=== PATIENT | female | born 1960 ===

== ENCOUNTER → 2019-12-07 13:04 | Outpatient (BNVA) | payer MEDICAID, SELFPAY | PROVIDERS: PCP Nurse Practitioner Family; Referring Provider Nurse Practitioner Family; Visit Provider Nurse Practitioner | DX: K21.9 Gastro-esophageal reflux disease without esophagitis (principal); K59.04 Chronic idiopathic constipation; R14.0 Abdominal distension (gaseous); Z79.899 Other long term (current) drug therapy | CPT/HCPCS: 99213 ==

== ENCOUNTER 2020-03-27 14:56 | Outpatient (REF) | payer MEDICAID, SELFPAY | END 2020-03-27 14:57 | disposition home or self-care (01) | LOC: HO.MAMMO 14:56 | PROVIDERS: Visit Provider Family Medicine | DX: Z13.89 Encounter for screening for other disorder (principal) ==

== ENCOUNTER 2020-05-18 13:30 | Emergency (ER) | payer MEDICAID, SELFPAY ==
--- NOTE | ~2020-05-18 | XR_ITS ---
EXAMINATION: XR chest 1V CLINICAL INFORMATION: Reason for Exam sob, COMPARISON: 01/20/2018 TECHNIQUE: XR chest 1V Tubes and lines: None Lungs and pleura: Newly developed mild bilateral interstitial opacification concerning for possible interstitial pneumonia including possible atypical viral pneumonia. Heart and mediastinum: The mediastinum is within normal limits.. Bones/soft tissue: Skeletal structures included are normal for patient's age. XR/XR chest 1V IMPRESSION: Bilateral interstitial opacification concerning for possible atypical pneumonia including possible viral pneumonia. No pleural effusion.
--- NOTE | 2020-05-18 13:53 | ED.SOB ---
HPI - SOB/Dyspnea General Chief Complaint: Dyspnea Stated Complaint: DIFF BREATHING COVID POS Time Seen by Provider: 05/18/20 13:44 Source: patient and hourly sign language interpreter Mode of arrival: ambulatory Limitations: language barrier History of Present Illness HPI Narrative: 60-year-old female with a past medical history of asthma, GERD here with complaints of shortness of breath x2 days. She tells me that she has some chest tightness which is associated with this and a dry nonproductive cough. She denies any lower extremity swelling or pain. No fevers or chills. Using albuterol inhaler with continued symptoms. Per patient tested COVID positive 2 weeks ago at [facility]. MD elicited complaint: shortness of breath Related Data Home Medications Medication Instructions Recorded Confirmed simethicone 180 mg capsule 180 mg PO QID PRN cap 12/06/19 12/06/19 Previous Rx's Medication Instructions Recorded dexlansoprazole 60 mg 60 mg PO BEDTIME #30 cap 01/02/20 capsule,biphase delayed release linaclotide 145 mcg capsule 145 mcg PO QAM #30 cap 01/02/20 prednisone 40 mg PO DAILY #8 tab 05/18/20 Allergies Allergy/AdvReac Type Severity Reaction Status Date / Time Penicillins [PENICILLINS] Allergy Unknown UNKNOWN Unverified 11/01/19 17:54 HIGH BLOOD PRESSURE MED Allergy Unknown ASTHMA Uncoded 11/01/19 17:54 Review of Systems Review of Systems: Yes all other systems are reviewed and are negative Constitutional: Constitutional: Reports no additional constitutional complaints, Denies body ache(s), Denies chills, Denies fever(s), Denies headache(s) and Denies weakness Eyes: Eyes: Reports no additional eye complaints and Denies change in vision ENT: Reports system reviewed and no additional complaints, except as documented, Denies dizziness, Denies headache(s), Denies nasal congestion, Denies nasal discharge and Denies neck pain Cardiovascular: Cardiovascular: Reports no additional cardiovascular complaints, Reports chest pain, Denies leg edema and Reports dyspnea Respiratory: Respiratory: Reports no additional respiratory complaints, Reports cough and Reports dyspnea Gastrointestinal: Gastrointestinal: Reports no additional gastrointestinal complaints, Denies abdominal pain, Denies diarrhea, Denies nausea and Denies vomiting Genitourinary: Genitourinary: Reports no additional female genitourinary complaints and Denies urinary incontinence Musculoskeletal: Musculoskeletal: Reports no additional musculoskeletal complaints, Denies back pain, Denies arthralgias, Denies joint swelling, Denies neck pain, Denies numbness and Denies tingling Integumentary/Breasts: Skin/Breast: Reports system reviewed and no additional complaints, except as docu and Denies rash Neurologic: Reports system reviewed and no additional complaints, except as documented, Denies Abnormal speech present, Denies dizziness, Denies headache(s), Denies numbness, Denies tingling and Denies weakness PMFSH Past Medical History Attestation statement: The following information was validated with the patient. Source: old records reviewed and nursing notes reviewed Medical History (Updated 05/18/20 @ 16:16 by Onelia Vallejo NP) Asthma Surgical History History of esophagogastroduodenoscopy (EGD) (~05/2010) Hx of colonoscopy (~05/2010) Family History Family History Father Heart disease Mother Cancer Diabetes HTN (hypertension) Sister Diabetes Brother Heart disease Maternal Grandmother Cancer Paternal Grandmother Cancer Social History Social History Alcohol intake: current Alcohol intake frequency: does not drink Smoking Status: Never smoker Advance Directives: Yes Advance Directives Information Provided: Yes Advance Directives on File: No Physical Exam Vital Signs: Vital Signs: Last Vital Signs Temp 99.0 F 05/18/20 14:47 Pulse 85 05/18/20 15:17 Resp 22 H 05/18/20 14:47 BP 122/62 05/18/20 14:47 Pulse Ox 94 05/18/20 14:47 Body Mass Index 33.9 Const: General: cooperative, healthy appearing and anxious Orientation/consciousness: patient oriented x3 Limitations: no limitations HENMT: Head: Yes normal to inspection Ears: hearing grossly normal bilaterally General nose exam: Normal external nose present Face and sinus: Yes normal facial exam Mouth: Normal oral and palatal mucosa present Throat: Yes posterior oropharynx normal Eyes: General: appearance normal, both eyes and all related structures Pupils: Equal, round and reactive pupils present Neck: Neck: Yes normal visual inspection Chest: Chest palpation & inspection: normal inspection of the chest Resp: Other: Mild expiratory wheezing bilaterally Effort & Inspection: normal respiratory effort Cardio: Rate: regular rate Rhythm: regular rhythm Peripheral pulses: Peripheral pulses 2+ throughout GI: Inspection: Yes normal to inspection Palpation (GI): Soft to palpation and nontender Auscultation: normal bowel sounds Back/Spine/Pelvis: Thoracic/Lumbar Spine: thoracic and lumbar spine normal to inspection Skin: General skin exam: no rashes or lesions noted Neuro: General: patient oriented x3, no focal motor deficits and normal sensation to monofilament Cranial nerves: Yes Equal, round and reactive pupils present Cognition (Neuro): normal cognition Speech: No Abnormal speech present Gait exam (Neuro): Normal gait present Motor exam (neuro): 5/5 motor strength present throughout Extrem: General: Yes normal to inspection, Yes no pedal edema and Yes no calf tenderness Course Course Course Narrative: 60-year-old female with a past medical history of asthma and GERD, COVID positive 2 weeks ago here with shortness of breath, cough, chest tightness x2 days. On arrival the patient is very anxious. She has mild expiratory wheezing bilaterally and oxygen saturation of 97%. Will check labs, EKG, chest x-ray. Give DuoNeb, Solu-Medrol 1500-x-ray consistent with bilateral infiltrates which is from a viral process. Add on blood cultures, lactic acid. 1600-Labs are unremarkable with exception of mildly elevated INR, AST/ALT, LDH, CRP which is from a viral infection. Patient feels improved. Will trial ambulatory oxygen saturation. 1630-patient walked with oxygen saturations 95% and greater with no tachypnea. Plan for discharge home. Reviewed worrisome signs and symptoms including worsening shortness of breath, chest pain, fever, vomiting. Comfortable discharge home. MDM - SOB/Dyspnea MDM Narrative Medical decision making narrative: Anxiety, pneumonia, PE, viral syndrome, asthma exacerbation Less likely PE with negative D-dimer, no hypoxia or tachycardia or clinical findings of a DVT Medical Records Attestation: I reviewed the patient's medical records. Lab Data Attestation: I reviewed the patient's lab results. Result diagrams: 05/18/20 14:44 05/18/20 14:44 Labs: Lab Results 04/04/21 04/04/21 04/04/21 Range/Units 14:44 14:44 14:44 WBC 7.0 (4.8-10.8) X10*3/uL RBC 4.29 (4.20-5.50) X10*6/uL Hgb 11.7 L (12.0-16.0) g/dl Hct 36.7 L (37-47) % MCV 85.5 (80-98) fL MCH 27.3 (27.0-33.0) pg MCHC 31.9 (31.0-35.0) g/dl RDW 13.2 (11.0-16.0) % Plt Count 300 (160-400) X10*3/uL MPV 11.6 (9.4-12.3) fL Immature Gran % (Auto) 0.7 H (0.0-0.4) % Neut % (Auto) 64.0 (45-73) % Lymph % (Auto) 29.3 (20-40) % Custer % (Auto) 5.8 (2-11) % Eos % (Auto) 0.1 (0-4) % Baso % (Auto) 0.1 (0-2) % Lymph # (Auto) 2.1 (1.2-4.9) X10*3/uL Custer # (Auto) 0.4 (0.1-1.2) X10*3/uL Eos # (Auto) 0.0 (0.0-0.4) X10*3/uL Baso # (Auto) 0.0 (0.0-0.2) X10*3/uL Abs Immat Gran (auto) 0.05 H (0.00-0.03) X10*3/uL Absolute Neuts (auto) 4.5 (2.0-8.3) X10*3/uL Absolute Nucleated RBC 0.000 (0.0-0.012) X10*3/uL Nucleated RBC % (auto) 0.0 (0.0-0.2) /100WBC PT 14.6 H (10.8-13.0) SEC INR 1.2 H (0.9-1.1) D-Dimer < 200 NG/ML Sodium 136 (135-145) mmol/L Potassium 4.6 (3.3-5.1) mmol/L Chloride 98 (96-108) mmol/L Carbon Dioxide 27 (22-29) mmol/L Anion Gap 16 (12-20) BUN 11 (9-16) mg/dL Creatinine 0.84 (0.5-1.4) mg/dL Estim Creat Clear Calc 83.8 Estimated GFR > 60 Random Glucose 284 H (60-115) mg/dL Lactic Acid (0.5-2.0) mmol/L Calcium 8.5 (8.4-10.2) mg/dL Magnesium 2.1 (1.6-2.6) mg/dL Ferritin 432 H (10-250) ng/mL Total Bilirubin 0.6 (0.0-1.0) mg/dL Direct Bilirubin 0.3 (0.0-0.5) mg/dL AST 55 H (5-31) U/L ALT 34 H (0-31) U/L Alkaline Phosphatase 47 (39-117) U/L Lactate Dehydrogenase 339 H (122-220) U/L Troponin I High Sens (<3.5-17.0) ng/L C-Reactive Protein 4.99 H (< or = 0.50) mg/dL Total Protein 6.9 (6.5-8.0) g/dL Albumin 3.8 (3.5-5.0) g/dL Procalcitonin ng/mL 05/18/20 05/18/20 05/18/20 Range/Units 14:44 14:44 15:33 WBC (4.8-10.8) X10*3/uL RBC (4.20-5.50) X10*6/uL Hgb (12.0-16.0) g/dl Hct (37-47) % MCV (80-98) fL MCH (27.0-33.0) pg MCHC (31.0-35.0) g/dl RDW (11.0-16.0) % Plt Count (160-400) X10*3/uL MPV (9.4-12.3) fL Immature Gran % (Auto) (0.0-0.4) % Neut % (Auto) (45-73) % Lymph % (Auto) (20-40) % Custer % (Auto) (2-11) % Eos % (Auto) (0-4) % Baso % (Auto) (0-2) % Lymph # (Auto) (1.2-4.9) X10*3/uL Custer # (Auto) (0.1-1.2) X10*3/uL Eos # (Auto) (0.0-0.4) X10*3/uL Baso # (Auto) (0.0-0.2) X10*3/uL Abs Immat Gran (auto) (0.00-0.03) X10*3/uL Absolute Neuts (auto) (2.0-8.3) X10*3/uL Absolute Nucleated RBC (0.0-0.012) X10*3/uL Nucleated RBC % (auto) (0.0-0.2) /100WBC PT (10.8-13.0) SEC INR (0.9-1.1) D-Dimer NG/ML Sodium (135-145) mmol/L Potassium (3.3-5.1) mmol/L Chloride (96-108) mmol/L Carbon Dioxide (22-29) mmol/L Anion Gap (12-20) BUN (9-16) mg/dL Creatinine (0.5-1.4) mg/dL Estim Creat Clear Calc Estimated GFR Random Glucose (60-115) mg/dL Lactic Acid 0.9 (0.5-2.0) mmol/L Calcium (8.4-10.2) mg/dL Magnesium (1.6-2.6) mg/dL Ferritin (10-250) ng/mL Total Bilirubin (0.0-1.0) mg/dL Direct Bilirubin (0.0-0.5) mg/dL AST (5-31) U/L ALT (0-31) U/L Alkaline Phosphatase (39-117) U/L Lactate Dehydrogenase (122-220) U/L Troponin I High Sens 5.0 (<3.5-17.0) ng/L C-Reactive Protein (< or = 0.50) mg/dL Total Protein (6.5-8.0) g/dL Albumin (3.5-5.0) g/dL Procalcitonin 0.05 ng/mL Imaging Data Chest x-ray: Attestation: I personally reviewed and interpreted this imaging study as follows: Radiologist's impression: EXAMINATION: XR chest 1V CLINICAL INFORMATION: Reason for Exam sob, COMPARISON: 01/20/2018 TECHNIQUE: XR chest 1V Tubes and lines: None Lungs and pleura: Newly developed mild bilateral interstitial opacification concerning for possible interstitial pneumonia including possible atypical viral pneumonia. Heart and mediastinum: The mediastinum is within normal limits.. Bones/soft tissue: Skeletal structures included are normal for patient's age. XR/XR chest 1V IMPRESSION: Bilateral interstitial opacification concerning for possible atypical pneumonia including possible viral pneumonia. No pleural effusion. ECG Data Attestation: I personally reviewed and interpreted this ECG as follows: ECG interpretation date: 05/18/20 ECG interpretation time: 14:32 Interpretation: Normal sinus rhythm with a rate of 86, normal HI, normal QT Discharge Plan Discharge Clinical Impression: Viral pneumonia Asthma Qualifiers: Asthma severity: mild Asthma persistence: persistent Asthma complication type: with acute exacerbation Qualified Code(s): J45.31 - Mild persistent asthma with (acute) exacerbation Patient Disposition: Home, Self-Care Instructions: Asthma (ED), Viral Pneumonia (ED) Additional Instructions: Your x-ray shows a Coronavirus pneumonia. Do not need antibiotics for this. You you may still have symptoms of cough and mild shortness of breath for several weeks. You should return here for more severe symptoms such as severe shortness of breath, chest pain, fever which does not respond to Motrin or Tylenol. Consider buying a pulse oximeter and monitor oxygen saturation at home and returning for oxygen levels less than 90%. Increase fluids, rest Continue your albuterol inhaler and nebulizer as needed Your next dose of prednisone is tomorrow Prescriptions: New prednisone 20 mg tablet 40 mg PO DAILY Qty: 8 RF: 0 No Action linaclotide [Linzess] 145 mcg capsule 145 mcg PO QAM Qty: 30 RF: 5 dexlansoprazole [Dexilant] 60 mg capsule,biphase delayed releas 60 mg PO BEDTIME Qty: 30 RF: 5 simethicone [Gas Relief (simethicone)] 180 mg capsule 180 mg PO QID PRNRF: 0 Referrals: Sal Pham NP [Primary Care Provider] - 2 days Discharge Date/Time: 05/18/20 16:53 Print Language: Kuwaiti
--- NOTE | 2020-05-18 14:09 | ECG_ITS ---
Test Reason : SHORTNESS OF BREATH Blood Pressure : / mmHG Vent. Rate : 086 BPM Atrial Rate : 086 BPM P-R Int : 146 ms QRS Dur : 084 ms QT Int : 370 ms P-R-T Axes : 069 040 048 degrees QTc Int : 442 ms Normal sinus rhythm Normal ECG When compared with ECG of 20-JAN-2018 12:18, No significant change was found Referred By: Onelia Vallejo Electronically Signed By:Chava Pettit
[2020-05-18 14:23] VITALS: BP 122/62; PULSE 83; RESP 20; TEMP 37.1; O2SAT 96; BMI 33.9
[2020-05-18 14:47] VITALS: BP 122/62; PULSE 86; RESP 22; TEMP 37.2; O2SAT 94
[2020-05-18] MEDS: methylPREDNISolone Sod Succ 125 MG/2 ML VIAL IVPUSH (14:51)
[2020-05-18 15:12] LABS: MANUAL DIFF FLAG NO
[2020-05-18 15:13] LABS: Basophils Percent Auto 0.1 % (0-2); Eosinophils Percent Auto 0.1 % (0-4); Hematocrit 36.7 % (37-47); Hemoglobin 11.7 g/dl (12.0-16.0); Imm Gran Abs Auto 0.05 X10*3/uL (0.00-0.03); Imm Gran Pct Auto 0.7 % (0.0-0.4); Lymphocytes Absolute Auto 2.1 X10*3/uL (1.2-4.9); Lymphocytes Percent Auto 29.3 % (20-40); Mean Corpuscular HGB Conc 31.9 g/dl (31.0-35.0); Mean Corpuscular Hemoglobin 27.3 pg (27.0-33.0); Mean Corpuscular Volume 85.5 fL (80-98); Mean Platelet Volume 11.6 fL (9.4-12.3); Monocytes Absolute Auto 0.4 X10*3/uL (0.1-1.2); Monocytes Percent Auto 5.8 % (2-11); Neutrophils Absolute Auto 4.5 X10*3/uL (2.0-8.3); Platelet Count 300 X10*3/uL (160-400); Red Blood Count 4.29 X10*6/uL (4.20-5.50); Red Cell Distribution Width 13.2 % (11.0-16.0)
[2020-05-18 15:17] VITALS: PULSE 85; O2SAT 97
[2020-05-18] MEDS: Albuterol/Iprat 2.5/0.5MG 3 ML AMPUL.NEB INHALE (15:17)
[2020-05-18 15:19] LABS: INTERNATIONAL NORM RATIO 1.2 (0.9-1.1); Prothrombin Time 14.6 SEC (10.8-13.0)
[2020-05-18 15:25] LABS: D Dimer < 200 NG/ML
[2020-05-18 15:50] LABS: Alanine Aminotransferase 34 U/L (0-31); Albumin Level 3.8 g/dL (3.5-5.0); Alkaline Phosphatase 47 U/L (39-117); Anion Gap 16 (12-20); Aspartate Amino Transferase 55 U/L (5-31); Bilirubin Direct 0.3 mg/dL (0.0-0.5); Bilirubin Total 0.6 mg/dL (0.0-1.0); Blood Urea Nitrogen 11 mg/dL (9-16); C Reactive Protein 4.99 mg/dL (< or = 0.50); Calcium 8.5 mg/dL (8.4-10.2); Carbon Dioxide 27 mmol/L (22-29); Chloride 98 mmol/L (96-108); Creatinine Clr Calc Pharmacy 83.8; Estimated Glomerular Filt Rate > 60; Glucose Random 284 mg/dL (60-115); Lactate Dehydrogenase 339 U/L (122-220); Magnesium 2.1 mg/dL (1.6-2.6); Potassium 4.6 mmol/L (3.3-5.1); Sodium 136 mmol/L (135-145); Total Protein 6.9 g/dL (6.5-8.0)
[2020-05-18 15:59] LABS: Lactic Acid 0.9 mmol/L (0.5-2.0)
[2020-05-18 16:16] LABS: Ferritin 432 ng/mL (10-250)
[2020-05-18 16:20] LABS: Procalcitonin 0.05 ng/mL
== END 2020-05-18 16:53 | disposition home or self-care (01) ==
PROVIDERS: Nurse Practitioner Family; Emergency Provider Emergency Medicine; PCP Nurse Practitioner Family
DX: U07.1 COVID-19 (principal); J12.82 Pneumonia due to coronavirus disease 2019; J45.31 Mild persistent asthma with (acute) exacerbation
CPT/HCPCS: 36415; 71045; 80048; 80076; 82728; 83605; 83615; 83735; 84145; 84484; 85025; 85379; 85610; 86140; 87040; 93005; 94640; 96374; 99283; 99284; J2930

== ENCOUNTER 2020-10-23 14:57 | Emergency (ER) | payer MEDICAID, SELFPAY ==
[2020-10-23 15:38] VITALS: BP 140/66; PULSE 76; RESP 16; TEMP 37.1; O2SAT 98; BMI 36.6
--- NOTE | 2020-10-23 16:41 | ED.EXTPRO ---
HPI - Extremity Problem General Chief complaint: Extremity Injury, Upper Stated complaint: PAIN R ARM Time Seen by Provider: 10/23/20 16:21 Source: patient Mode of arrival: ambulatory Limitations: no limitations History of Present Illness HPI Narrative: 60 y/o female presents to the ER for ongoing neck & right upper extremity pain after she fell 6 months ago. She reports never been seen at the time of the injury and she has had ongoing pain since. She reports the pain is in the right side of her neck and radiates down to the fingertips on the right side. Worse at night. MD Complaint: extremity pain Onset (ago): month(s) (6) Pain Consistency: intermittent Location: right and upper extremity Severity scale (1-10): 7 Quality: aching and sharp Radiation: distal Relieving factors: nothing Exacerbating factors: range of motion and palpation Associated symptoms: denies other symptoms Related Data Home Medications Medication Instructions Recorded Confirmed simethicone 180 mg capsule (Gas 180 mg PO QID PRN cap 12/06/19 12/06/19 Relief (simethicone)) Previous Rx's Medication Instructions Recorded prednisone 20 mg tablet 40 mg PO DAILY #8 tab 05/18/20 dexlansoprazole 60 mg 60 mg PO QPM #30 cap 07/04/20 capsule,biphase delayed release (Dexilant) linaclotide 145 mcg capsule 145 mcg PO QAM #30 cap 07/04/20 (Linzess) cyclobenzaprine 10 mg tablet 10 mg PO TID PRN #14 tab 10/23/20 lidocaine 5 % topical patch 1 patch TOPICAL DAILY #15 ea 10/23/20 (Lidoderm) prednisone 20 mg tablet 40 mg PO DAILY #10 tab 10/23/20 Allergies Allergy/AdvReac Type Severity Reaction Status Date / Time Penicillins [PENICILLINS] Allergy Unknown UNKNOWN Unverified 11/01/19 17:54 HIGH BLOOD PRESSURE MED Allergy Unknown ASTHMA Uncoded 11/01/19 17:54 Review of Systems Review of Systems: Constitutional: No Fever, No Chills ENT/Mouth: No sore throat, No Rhinorrhea, No Swallowing Difficulty Cardiovascular: No Chest Pain, No SOB, No Orthopnea, No Edema Respiratory: No Cough, No Sputum, No Wheezing, No dyspnea Gastrointestinal: No Nausea, No Vomiting, No Diarrhea, No abdominal Pain Musculoskeletal: + joint pain, + Myalgias Skin: No Skin Lesions, No rash Neuro: + Weakness, + Numbness, No Dizziness, No Headache Heme/Lymph: No Bruising, No Lymphadenopathy PMFSH Past Medical History Medical History (Updated 10/23/20 @ 17:07 by CHARLEE Lewis) Asthma Surgical History History of esophagogastroduodenoscopy (EGD) (~05/2010) Hx of colonoscopy (~05/2010) Family History Family History Father Heart disease Mother Cancer Diabetes HTN (hypertension) Sister Diabetes Brother Heart disease Maternal Grandmother Cancer Paternal Grandmother Cancer Social History Social History Alcohol intake: current Alcohol intake frequency: does not drink Advance Directives: No Advance Directives Information Provided: No Physical Exam Vital Signs: Vital Signs: Last Vital Signs Temp 98.7 F 10/23/20 15:38 Pulse 76 10/23/20 15:38 Resp 16 10/23/20 15:38 BP 140/66 H 10/23/20 15:38 Pulse Ox 98 10/23/20 15:38 Body Mass Index 36.6 Appearance: Alert. Oriented X3. No acute distress. Eyes: Pupils equal, round and reactive to light. ENT: Pharynx normal. Neck: Normal inspection. Neck supple. No cervical spinal tenderness. Soft tissue tenderness to the right sided soft tissues and upper trapezius with spasm CVS: Normal heart rate and rhythm. Pulses normal. Respiratory: No respiratory distress. Breath sounds normal. Skin: Skin warm and dry. Normal skin color. Normal skin turgor. No rashes. Extremities: No lower extremity edema. Right arm normal to inspeciton, normal passive ROM. no swelling or tenderness of shoulder, elbow or wrist. Normal bag mender strength bilaterally. Neuro: Oriented X 3. No motor deficit. No sensory deficit. Course Course Course Narrative: 60 y/o female presenting with right sided neck pain and shoot pains and numbness down her arm for 6 months. Not going to PT like her PCP suggested. She has been taking tylenol and motrin with minimal relief. Her exam is unremarkable. Given the chronicity of her symptoms there is no emergent need for imaging today. Clinical presentation is consistent with cervical radiculopathy. Will give trial of prednisone and muscle relaxer for associated muscle spasm. Stable for d/c home. She was encouraged to follow up with her PCP and ask for possible MRI for futher evaluation. Discharge Plan Discharge Clinical Impression: Cervical radiculopathy Patient Disposition: Home, Self-Care Instructions: Cervical Radiculopathy (ED) Additional Instructions: Your pain seems to be due to inflammation of the nerves in your neck causing pain to radiate down to your arm. No lifting. Limit use of your right arm and rest. Use heat to the neck several times per day. Take medications as prescribed to help with pain and discomfort. Follow up with your Primary Care Doctor this week. Recommend Physical Therapy as suggested by your doctor. If your pain worsens, if you develop new numbness, tingling, weakness, loss of function or any other concerning symptoms come back to the ER right away for evaluation. Prescriptions: New cyclobenzaprine 10 mg tablet 10 mg PO TID PRN (Reason: muscle spasm) Qty: 14 RF: 0 prednisone 20 mg tablet 40 mg PO DAILY Qty: 10 RF: 0 lidocaine [Lidoderm] 5 % adhesive patch,medicated 1 patch topical DAILY Qty: 15 RF: 0 No Action dexlansoprazole [Dexilant] 60 mg capsule,biphase delayed releas 60 mg PO QPM Qty: 30 RF: 5 linaclotide [Linzess] 145 mcg capsule 145 mcg PO QAM Qty: 30 RF: 5 prednisone 20 mg tablet 40 mg PO DAILY Qty: 8 RF: 0 simethicone [Gas Relief (simethicone)] 180 mg capsule 180 mg PO QID PRNRF: 0 Referrals: Sal Pham NP [Primary Care Provider] - 1 week (neck and arm pain x6 months, likely cervical radiculopathy, needs MRI)
[2020-10-23] MEDS: Ketorolac Tromethamine 15 MG/ML VIAL 30 MG IM (17:30)
== END 2020-10-23 17:32 | disposition home or self-care (01) ==
PROVIDERS: Emergency Provider Emergency Medicine; PCP Nurse Practitioner Family
DX: M54.12 Radiculopathy, cervical region (principal); M54.2 Cervicalgia
CPT/HCPCS: 96372; 99283; 99284; J1885

== ENCOUNTER 2020-11-12 23:59 | Emergency (ER) | payer MEDICAID, SELFPAY ==
--- NOTE | ~2020-11-12 | XR_ITS ---
EXAMINATION: XR CERVICAL SPINE CLINICAL INFORMATION: Traumatic neck pain radiating to the arms. COMPARISON: 10/05/2010 TECHNIQUE: 3 views of the cervical spine were obtained. FINDINGS: There is no fracture or subluxation. Vertebral body height and alignment maintained. The disc spaces are maintained with fairly prominent multilevel endplate osteophytes throughout. The atlantoaxial joint is well aligned. The dens is intact. The prevertebral soft tissues appear unremarkable. The lung apices are clear. XR/XR cervical spine 3V IMPRESSION: Prominent multilevel endplate osteophytes throughout the cervical spine. These have increased in prominence since 2010.
--- NOTE | ~2020-11-12 | XR_ITS ---
EXAMINATION: XR HAND, RIGHT CLINICAL INFORMATION: Pain COMPARISON: None TECHNIQUE: PA, lateral, and oblique views of the right hand. FINDINGS: There is no fracture or dislocation. Mild degenerative changes throughout the interphalangeal joints with small osteophytes present. No osseous erosion. The soft tissues are unremarkable. XR/XR hand RT 2V IMPRESSION: No acute abnormality. Mild degenerative changes.
[2020-11-13 00:08] VITALS: BP 173/54; PULSE 110; RESP 14; TEMP 36.1; O2SAT 98; BMI 36.6
--- NOTE | 2020-11-13 01:14 | ED_ITS ---
HPI - Neck Pain/Injury General Chief Complaint: Extremity Injury, Upper Stated Complaint: hand cramping Time Seen by Provider: 11/13/20 00:18 Source: patient Mode of arrival: ambulatory Limitations: no limitations History of Present Illness HPI Narrative: 60-year-old female presenting to the ED with complaints of acute on chronic neck pain radiating to her bilateral hands over the past year after she had a fall. She reports that she was never seen at the time of the fall. Although she has been having intermittent pain from her neck to her bilateral arms since then. She reports she was seen here on 10/23/2020 and given muscle relaxants/prednisone and Lidoderm and provided symptomatic relief although she does not have any more muscle relaxants or any other meds. She denies any dizziness, headaches, change in vision, jaw pain, nausea/vomiting, chest pain or shortness of breath, dyspnea on exertion, orthopnea, palpitations, back pain, weakness, IV drug use, history of cancer or any other symptoms complaints or concerns at this time. 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 Radiation: right lateral and left lateral Severity: moderate and constant Quality: sharp, aching and spasming Duration: intermittent Relieving factors: other (Patient reports relief with prescribed Flexeril/prednisone and Lidoderm patches that she was prescribed here on 10/23/2020) Exacerbating factors: movement of neck and other (Range of motion and palpation) Context: fall ( she reports she had a fall over a year ago) Associated symptoms: other (Numbness/tingling to bilateral hands) Treatments prior to arrival: none Related Data Home Medications Medication Instructions Recorded Confirmed simethicone 180 mg capsule (Gas 180 mg PO QID PRN cap 12/06/19 12/06/19 Relief (simethicone)) Previous Rx's Medication Instructions Recorded prednisone 20 mg tablet 40 mg PO DAILY #8 tab 05/18/20 dexlansoprazole 60 mg 60 mg PO QPM #30 cap 07/04/20 capsule,biphase delayed release (Dexilant) linaclotide 145 mcg capsule 145 mcg PO QAM #30 cap 07/04/20 (Linzess) cyclobenzaprine 10 mg tablet 10 mg PO TID PRN #14 tab 10/23/20 lidocaine 5 % topical patch 1 patch TOPICAL DAILY #15 ea 10/23/20 (Lidoderm) prednisone 20 mg tablet 40 mg PO DAILY #10 tab 10/23/20 acetaminophen 500 mg tablet 1,000 mg PO QID PRN #14 tab 11/13/20 (Tylenol Extra Strength) cyclobenzaprine 10 mg tablet 10 mg PO Q8H #14 tab 11/13/20 lidocaine HCl 4 % topical cream 1 appl TOPICAL BID PRN #120 g 11/13/20 (Aspercreme (lidocaine HCl)) prednisone 20 mg tablet 40 mg PO DAILY 5 Days #10 tab 11/13/20 Allergies Allergy/AdvReac Type Severity Reaction Status Date / Time Penicillins [PENICILLINS] Allergy Unknown UNKNOWN Unverified 11/01/19 17:54 HIGH BLOOD PRESSURE MED Allergy Unknown ASTHMA Uncoded 11/01/19 17:54 Review of Systems Review of Systems: Constitutional : No trauma, No Weight loss, No Fever, No Chills, ENT/Mouth : No Hearing loss, No Ear Pain, No Nasal Congestion, No Sinus Pain, No Hoarseness, No sore throat, No Rhinorrhea, No Swallowing Difficulty Cardiovascular : No Chest Pain, No SOB Respiratory : No Cough, No Dyspnea Gastrointestinal : No Nausea, No Vomiting, No Diarrhea, No abdominal Pain, No Hematochezia, No Melena Genitourinary : No Dysuria, No Urinary Frequency, No Hematuria, No Urinary or Bowel Incontinence/retention Musculoskeletal : + Neck pain, No Back pain, No joint stiffness, No joint swelling Skin : No Skin Lesions, No rash or signs of infection Neuro : + paresthesia to b/l arms No paresthesias to legs, No Weakness, No radiation, No headache, no loss of bowel or bladder incontinence, no saddle anesthesia Denies history of IV drug usage. Yes all other systems are reviewed and are negative [facility] Past Medical History Attestation statement: The following information was validated with the patient. Medical History Asthma Surgical History History of esophagogastroduodenoscopy (EGD) (~05/2010) Hx of colonoscopy (~05/2010) Family History Family History Father Heart disease Mother Cancer Diabetes HTN (hypertension) Sister Diabetes Brother Heart disease Maternal Grandmother Cancer Paternal Grandmother Cancer Social History Social History Alcohol intake: current Alcohol intake frequency: does not drink Advance Directives: No Advance Directives Information Provided: Yes Patient : No Physical Exam Vital Signs: Vital Signs: Last Vital Signs Temp 97.0 F 11/13/20 00:08 Pulse 110 H 11/13/20 00:08 Resp 14 11/13/20 00:08 BP 173/54 H 11/13/20 00:08 Pulse Ox 98 11/13/20 00:08 Body Mass Index 36.6 vital signs have been reviewed as normal and appeared to be correct. Blood pressure hypertensive 173/54. Heart rate tachycardic at 110. Respiration rate normal. Temperature normal. Oxygen saturation normal. Appearance: Alert. Oriented X3. No acute distress. Head: Normal external exam. Normocephalic. Atraumatic. Eyes: PERRLA. EOMI. Conjunctiva and sclera normal. Eyelids normal. ENT: Pharynx normal. Uvula midline. Moist mucous membranes. Neck: Normal inspection. Neck supple. FROM. No adenopathy. Thyroid Normal. Trachea midline. No meningeal signs. No neck mass noted. Tender to palpation of bilateral paracervical musculature and mid cervical tenderness. No step-offs or deformities noted. Patient neuro intact bilaterally and distally on all 4 extremities. Reflexes intact bilaterally and distally in all 4 extremities. No rashes/lesion/induration/fluctuance or signs of infection noted. No edema noted. CVS: Normal heart rate and rhythm. Heart sound normal. No murmurs noted. Pulses normal throughout. Respiratory: No respiratory distress. Painless inspiration. Breath sounds normal. No wheezes/rales/rhonchi noted. Chest nontender. No accessory muscle usage noted or decreased air movement noted. Back: Full range of motion noted. No obvious deformities, or edema. Full ROM in back and lower extremities. Skin: Skin warm and dry. Normal skin color. Normal skin turgor. No rashes/lesions/lacerations noted. Extremities: Extremities exhibit normal range of motion. Extremities nontender. Negative prayer's test. Negative phalen's test. Negative Tinel's test. Negative Yergason test. No extremity edema noted. Able to shrug shoulders bilaterally and keep up against resistance. Neuro: Oriented X 3. No motor deficit. No sensory deficit. Reflexes normal. Moving all extremities. No focal motor deficits. Cranial nerves II-XI intact bilaterally. Facial strength normal. Normal cognition. Speech normal. Gait normal. Strength 5/5 throughout. No pronator drift. No tremor noted. No fasciculations noted. No rigidity noted. Muscle tone normal throughout. No asterixis noted. [id number] test normal. Heel to hammer test normal. Tandem gait normal. Does not sway with eyes open. Romberg test negative. Rapid alternating movement upper extremity normal. Rapid alternating movement lower extremity normal. Hand drop from overhead Misses face. NIHSS score 0. Course Course Course Narrative: 60-year-old female presenting to the ED with complaints of acute on chronic neck pain radiating to her bilateral hands over the past year after she had a fall. She reports that she was never seen at the time of the fall. Although she has been having intermittent pain from her neck to her bilateral arms since then. She reports she was seen here on 10/23/2020 and given muscle relaxants/prednisone and Lidoderm and provided symptomatic relief although she does not have any more muscle relaxants or any other meds. On exam patient is alert and oriented x3. Not in any acute distress. Mildly hypertensive at 173/54. Mildly tachycardic at 110. Otherwise all other vitals are within normal limits. NIHSS score 0. Patient denies any other symptoms including dizziness or chest pain or shortness of breath reports that this has been an ongoing pain for the past 6 months to year. She reports muscle relaxants helped in the past. She has normal sensation. Normal motor. No deficits. Lungs clear to auscultation. CV RRR. No lower extremity edema or calf tenderness. X-ray of right hand obtained and revealed degenerative changes otherwise no other acute processes were noted. Cervical spine x-ray revealed prominent multilevel endplate osteophytes throughout the cervical spine which have increased since 2010 otherwise no other acute processes noted. Therefore will DC home with muscle relaxants/prednisone and Lidoderm and instructions to return if any new or worsening symptoms follow-up with primary care provider. Patient understands agrees with this plan. MDM - Neck Pain/Injury Medical Records Attestation: I reviewed the patient's medical records. Imaging Data Cervical spine x-ray and right hand x-ray: Attestation: I personally reviewed and interpreted this imaging study as follows: Radiologist's impression: FINDINGS: There is no fracture or subluxation. Vertebral body height and alignment maintained. The disc spaces are maintained with fairly prominent multilevel endplate osteophytes throughout. The atlantoaxial joint is well aligned. The dens is intact. The prevertebral soft tissues appear unremarkable. The lung apices are clear. XR/XR cervical spine 3V IMPRESSION: Prominent multilevel endplate osteophytes throughout the cervical spine. These have increased in prominence since 2010. FINDINGS: There is no fracture or dislocation. Mild degenerative changes throughout the interphalangeal joints with small osteophytes present. No osseous erosion. The soft tissues are unremarkable.? XR/XR hand RT 2V IMPRESSION: No acute abnormality. Mild degenerative changes. Discharge Plan Discharge Clinical Impression: Cervical osteophyte, Cervical radiculopathy Patient Disposition: Home, Self-Care Instructions: Cervical Radiculopathy (ED) Prescriptions: New cyclobenzaprine 10 mg tablet 10 mg PO Q8H Qty: 14 RF: 0 prednisone 20 mg tablet 40 mg PO DAILY 5 Days Qty: 10 RF: 0 acetaminophen [Tylenol Extra Strength] 500 mg tablet 1,000 mg PO QID PRN (Reason: fever or pain) Qty: 14 RF: 0 lidocaine HCl [Aspercreme (lidocaine HCl)] 4 % cream 1 appl topical BID PRN (Reason: pain) Qty: 120 RF: 0 No Action dexlansoprazole [Dexilant] 60 mg capsule,biphase delayed releas 60 mg PO QPM Qty: 30 RF: 5 linaclotide [Linzess] 145 mcg capsule 145 mcg PO QAM Qty: 30 RF: 5 prednisone 20 mg tablet 40 mg PO DAILY Qty: 8 RF: 0 cyclobenzaprine 10 mg tablet 10 mg PO TID PRN (Reason: muscle spasm) Qty: 14 RF: 0 prednisone 20 mg tablet 40 mg PO DAILY Qty: 10 RF: 0 lidocaine [Lidoderm] 5 % adhesive patch,medicated 1 patch topical DAILY Qty: 15 RF: 0 simethicone [Gas Relief (simethicone)] 180 mg capsule 180 mg PO QID PRNRF: 0 [facility] - 2 days Print Language: Slovak
[2020-11-13] MEDS: Cyclobenzaprine HCl 10 MG TABLET PO (01:56)
[2020-11-13] MEDS: predniSONE 20 MG TABLET 40 MG PO (01:56)
--- NOTE | 2020-11-13 02:09 | PC.NURSE ---
pt moving all extremities, pt has difficulty putting jacket on due to hand pain. pt's family assisted patient and provided ride home. pt ambulatory with steady gait.
== END 2020-11-13 02:14 | disposition home or self-care (01) ==
PROVIDERS: Emergency Provider Emergency Medicine
DX: M54.12 Radiculopathy, cervical region (principal); M54.2 Cervicalgia; M79.642 Pain in left hand; M79.641 Pain in right hand; Z79.899 Other long term (current) drug therapy
CPT/HCPCS: 72040; 73120; 99283

== ENCOUNTER 2021-08-28 13:04 | Outpatient (REF) | payer MEDICAID, SELFPAY ==
--- NOTE | ~2021-08-28 | MM_ITS ---
EXAMINATION: MM SCREENING DIGITAL BREAST TOMOSYNTHESIS, BILATERAL CLINICAL INFORMATION: Screening. Asymptomatic. The lifetime risk of breast cancer based on the Tyrer-Cuzick Model is 13%. COMPARISON: Mammography: 09/05/2014, 12/01/2012 TECHNIQUE: Digital breast tomosynthesis is performed in both the craniocaudal and mediolateral oblique views along with computer-aided detection (CAD). Synthesized 2D images are generated from the tomosynthesis. Additional left CC view is provided. FINDINGS: There are scattered areas of fibroglandular density (ACR BI-RADS breast composition Category b). There are no significant masses, abnormal calcifications, or other abnormalities. Parenchymal pattern is similar to prior exams. MM/MM tomosynthesis screening BI IMPRESSION: No mammographic evidence of malignancy. ASSESSMENT: BI-RADS 1: Negative RECOMMENDATION: Routine annual mammography screening. This patient's information was entered into a reminder system with a target due date for their next mammogram.
== END 2021-08-28 13:05 | disposition home or self-care (01) ==
LOC: HO.MAMMO 13:04
PROVIDERS: Visit Provider Registered Nurse Community Health
DX: Z12.31 Encounter for screening mammogram for malignant neoplasm of breast (principal)
CPT/HCPCS: 77063; 77067

== ENCOUNTER 2023-01-03 11:28 | Outpatient (REF) | payer MEDICAID, SELFPAY ==
[2023-01-03 14:56] LABS: Estimated Average Glucose 338 mg/dL; Hemoglobin A1c % 13.4 % (<6.0)
[2023-01-03 15:13] LABS: Alanine Aminotransferase 9 U/L (0-31); Albumin Level 4.3 g/dL (3.5-5.0); Alkaline Phosphatase 82 U/L (39-117); Anion Gap 10 (12-20); Aspartate Amino Transferase 13 U/L (5-31); Bilirubin Total 0.3 mg/dL (0.0-1.0); Blood Urea Nitrogen 17 mg/dL (9-16); Calcium 9.9 mg/dL (8.4-10.2); Carbon Dioxide 29 mmol/L (22-29); Chloride 101 mmol/L (96-108); Cholesterol 172 mg/dL (<200); Estimated Glomerular Filt Rate > 60; Glucose Random 306 mg/dL (60-115); HDL Cholesterol 53 mg/dL (>40); LDL Cholesterol Calculated 90 mg/dL (<100); Lactate Dehydrogenase 203 U/L (122-220); Potassium 4.3 mmol/L (3.3-5.1); Sodium 136 mmol/L (135-145); Total Protein 7.6 g/dL (6.5-8.0); Triglycerides 149 mg/dL (<150)
[2023-01-03 15:18] LABS: TSH reflex Free T4 3.05 uIU/mL (0.32-4.0)
[2023-01-03 15:38] LABS: Creatinine Urine 146.72 mg/dL; Microalbum/Creatinine Ratio Ur 23.8 ug/mg cr (<30)
[2023-01-04 04:06] LABS: HIV AB/AG Nonreactive (Nonreactive); HIV Num 1 0.05 S/CO (0.00-0.99)
[2023-01-04 13:09] LABS: RPR Rapid Plasma Reagin NON-REACTIVE (NON-REACTIVE)
[2023-01-05 15:17] LABS: HCV Log PCR <1.18 NOT DETECTED Log IU/mL (NOT DETECTED); HepC Viral Load <15 NOT DETECTED IU/mL (NOT DETECTED)
== END 2023-01-03 11:29 | disposition home or self-care (01) ==
LOC: HO.CHCLDS 11:28
PROVIDERS: Visit Provider Registered Nurse
DX: Z00.00 Encounter for general adult medical examination without abnormal findings (principal)
CPT/HCPCS: 36415; 80053; 80061; 82043; 82570; 83036; 83615; 84443; 86592; 87389; 87522

== ENCOUNTER 2023-04-20 14:03 | Outpatient (REF) | payer MEDICAID, SELFPAY ==
--- NOTE | ~2023-04-20 | US_ITS ---
EXAMINATION: US SOFT TISSUE HEAD/NECK CLINICAL INFORMATION: Local swelling, mass and lump under chin. COMPARISON: None available. TECHNIQUE: Linear transducer blackburn-scale and color Doppler examination of the left submandibular gland area. FINDINGS: No suspicious cystic, solid, or vascular mass is appreciated in the left submandibular region. The visualized portion of the submandibular gland appears unremarkable. Cervical lymph nodes are identified as follows: Left: Submandibular: Node #1: 1.1 x 0.6 cm in transverse dimension by 1.2 cm in longitudinal dimension. Normal fatty hilum. No stella calcification, cystic change, focus of increased echogenicity or focal vascularity in the stella cortex is identified. US/US soft tiss head and/or neck IMPRESSION: Normal-appearing left submandibular lymph node. No suspicious mass identified.
== END 2023-04-20 14:04 | disposition home or self-care (01) ==
LOC: HO.US 14:03
PROVIDERS: PCP Registered Nurse Community Health; Visit Provider Registered Nurse
DX: R22.0 Localized swelling, mass and lump, head (principal)
CPT/HCPCS: 76536

== ENCOUNTER 2023-06-02 11:07 | Outpatient (REF) | payer MEDICAID, SELFPAY ==
[2023-06-02 13:44] LABS: C Reactive Protein 0.35 mg/dL (< or = 0.50)
[2023-06-02 13:47] LABS: Rheumatoid Factor < 13.0 IU/mL (<15.0)
[2023-06-02 14:21] LABS: Erythrocyte Sedimentation Rate 34 MM/HR (0-20)
[2023-06-03 14:39] LABS: Cyclic Citrullinated Peptide <16 UNITS
[2023-06-07 12:53] LABS: Anti Nuclear Antibody Screen NEGATIVE (NEGATIVE)
== END 2023-06-02 11:08 | disposition home or self-care (01) ==
LOC: HO.HHCL 11:07
PROVIDERS: Visit Provider Registered Nurse
DX: M25.50 Pain in unspecified joint (principal)
CPT/HCPCS: 36415; 85652; 86038; 86140; 86200; 86431

== ENCOUNTER 2023-08-02 00:49 | Emergency (ER) | payer MEDICAID, SELFPAY ==
[2023-08-02 01:00] VITALS: BP 171/88; PULSE 87; RESP 20; TEMP 36.8; O2SAT 96; BMI 38.0
[2023-08-02] MEDS: Acetaminophen 325 MG TABLET 650 MG PO (01:07)
[2023-08-02 02:14] VITALS: BP 143/62; PULSE 69; RESP 16; TEMP 36.4; O2SAT 97
== END 2023-08-02 04:37 | disposition left against medical advice (07) ==
PROVIDERS: Emergency Provider Internal Medicine; PCP Registered Nurse
DX: R51.9 Headache, unspecified (principal)
CPT/HCPCS: 99281; 99283; 99284

== ENCOUNTER 2024-01-06 09:53 | Outpatient (REF) | payer MEDICAID, SELFPAY ==
[2024-01-06 12:43] LABS: Estimated Average Glucose 303 mg/dL; Hemoglobin A1C 350.9431 umol/L; Hemoglobin A1c % 12.2 % (<6.0); Total Hemoglobin (HGBA1C) 3206.3489 umol/L
[2024-01-06 13:29] LABS: Alanine Aminotransferase 18 U/L (0-31); Albumin Level 4.1 g/dL (3.5-5.0); Alkaline Phosphatase 83 U/L (39-117); Aspartate Amino Transferase 18 U/L (5-31); Bilirubin Direct < 0.2 mg/dL (0.0-0.5); Bilirubin Total 0.2 mg/dL (0.0-1.0); Lipase 21 U/L (8-78); Total Protein 7.2 g/dL (6.5-8.0)
[2024-01-06 14:03] LABS: Folate 11.5 ng/mL (> or = 4.0); Vitamin B12 432 pg/mL (200-900)
[2024-01-09 17:43] LABS: Transglutaminase IgA <1.0 U/mL
[2024-01-11 15:16] LABS: H Pylori Breath Test Positive (Negative)
[2024-01-12 13:54] LABS: Vitamin D 25-OH, D2 <4 ng/mL; Vitamin D 25-OH, D3 21 ng/mL; Vitamin D 25-OH, Total 21 ng/mL (30-100)
== END 2024-01-06 09:54 | disposition home or self-care (01) ==
LOC: HO.LAB 09:53
PROVIDERS: PCP Registered Nurse; Visit Provider Nurse Practitioner Family
DX: R14.0 Abdominal distension (gaseous) (principal); K59.04 Chronic idiopathic constipation; K21.9 Gastro-esophageal reflux disease without esophagitis; K58.1 Irritable bowel syndrome with constipation; R10.32 Left lower quadrant pain; E55.9 Vitamin D deficiency, unspecified; E11.9 Type 2 diabetes mellitus without complications; R19.7 Diarrhea, unspecified; R74.01 Elevation of levels of liver transaminase levels; Z11.0 Encounter for screening for intestinal infectious diseases
CPT/HCPCS: 36415; 80076; 82306; 82607; 82746; 83013; 83036; 83690; 86364; 99211; 99212

== ENCOUNTER 2024-01-06 09:53 | Outpatient (AMB) | payer MEDICAID, SELFPAY ==
[2024-01-06 10:05] VITALS: BP 150/68; PULSE 72; O2SAT 97; BMI 38.2
--- NOTE | 2024-01-06 10:05 | MHC.OFFVIS ---
Vital Signs 01/06/24 10:05 Height 5 ft 5 in Weight 229 lb 4.492 oz BMI 38.2 BP 150/68 H Blood Pressure Location Lt brachial Position Sitting Pulse 72 Pulse Source Pulse Oximeter Pulse Oximetry (%) 97 Oxygen Delivery Method Room Air Intake Visit Reasons: Colonoscopy Screening Intake Note: Relevant Flags or Indicators ? Requires Informatics Coordinator? Y Lizy presents in office today for a scheduled colonoscopy consultation. Pt is due for recall (2010). Pt is stating that they are attempting to avoid the colonoscopy if possible and have a cologuard test instead. CC; No recent labs, diagnostics, or med orders placed. Pt does report however, that she has recently had testing via their PCP based on a mass or nodule in their L neck. Relevant GI Sx as reported per pt? Reflux ? Fecal abnormalities o?? Constipation - Pt has been taking PRN per their PCP Rx. Pt states that this has been helpful. Pt denies any melena or hematochezia. ? Abdominal Pain L upper and lower quadrant pain. ? Hx of any recent surgeries? None Informatics Coordinator Required: Yes Informatics Coordinator Services: Informatics Coordinator Present Informatics Coordinator Name: [id number] Fabiana Information Interpreted: non-clinical & clinical Accompanied by: Family/Other Allergies Penicillins [PENICILLINS] Allergy (Unknown, Verified 01/06/24 10:07) UNKNOWN HIGH BLOOD PRESSURE MED Allergy (Unknown, Uncoded 08/02/23 01:03) ASTHMA HPI HPI Colonoscopy Screening: Details: LAST VISIT WITH MARISEL JOHNSON NP 12/06/2019 [facility] #[id number] She says I have been having asthma lately, but it is being controlled. She is well in regards to her GI sx and continues on her Dexilant and Linzess and simethicone with good control of her GERD, IBS and bloating. She is satisfied with this regimen and I will schedule a 6 mos followup. TODAY'S VISIT This patient has been seen in our practice in the past, however she has not seen us in over 4 years. Patient was previously seen by Marisel Johnson and treated for IBS C with Linzess and for GERD with Dexilant. Patient seen to have a good effect, however lately she has been struggling as Dexilant was never reordered as she has not followed up in our office and Linzess is not working as well as she would like. Patient reports to have abdominal pain postprandially. States that when she was taking Dexilant it was working for her. Patient is due to go for colonoscopy, however patient is afraid of tiny spaces and at this time is refusing to go for colonoscopy and would like to have a different testing done. Patient denies any nausea or vomiting. Denies any melena, hematochezia, unintentional weight loss or ribbon like stools. Patient is not eating much of vegetables. Mainly patient eats rice and beans. Reports abdominal bloating. More frequent left lower and left upper quadrant pain. [facility] Medical History (Updated 01/06/24 @ 19:58 by Roxanna Cordoba, [facility]) IBS (irritable bowel syndrome) H. pylori infection High cholesterol Hypertension Diabetes Asthma Surgical History History of cholecystectomy History of tubal ligation History of esophagogastroduodenoscopy (EGD) (~05/2010) Hx of colonoscopy (~05/2010) Family History Father Heart disease Mother Cancer Diabetes HTN (hypertension) Sister Diabetes Brother Heart disease Maternal Grandmother Cancer Paternal Grandmother Cancer Social History Alcohol intake: current Alcohol intake frequency: does not drink Review of Systems Const Denies weight gain and Denies weight loss ENT Reports no additional complaints, Denies dysphagia and Denies odynophagia Card Reports no additional complaints Resp Reports no additional complaints GI Reports abdominal pain (LLQ), Denies belching, Denies melena, Reports bloating, Denies change in bowel habits, Denies dysphagia, Denies excessive flatus, Denies dyspepsia, Reports heartburn, Denies diarrhea, Denies loose stools, Denies nausea, Denies odynophagia and Denies vomiting Reports no additional complaints Musc Reports no additional complaints Neuro Reports no additional complaints Psych Reports no additional complaints Endo Reports no additional complaints Physical Exam Vital Signs: Last Vital Signs Pulse 72 01/06/24 10:05 BP 150/68 H 01/06/24 10:05 Pulse Ox 97 01/06/24 10:05 Oxygen Delivery Method Room Air 01/06/24 10:05 BMI result Body Mass Index 38.2 Const General: healthy appearing and no acute distress Nutritional Appearance: obese Orientation/consciousness: patient oriented x3 Resp Effort & Inspection: normal respiratory effort, able to speak in complete sentences, no tracheal deviation and symmetric chest movement Auscultation: clear to auscultation bilaterally Cardio Rate: regular rate GI Inspection: Yes normal to inspection, No distended and Yes obesity Palpation (GI): Soft to palpation, not firm, nontender and No hepatosplenomegaly present Auscultation: normal bowel sounds General: Yes no CVA tenderness Back/Spine/Pelvis Back: no CVA tenderness Skin General skin exam: elasticity normal, turgor normal and dry skin Neuro General: patient oriented x3 Psych Appearance: grossly normal Mental Status: mental status grossly normal Assessment & Plan Assessment & Plan (1) Abdominal bloating: Code(s): R14.0 - Abdominal distension (gaseous) Category: Medical (2) Chronic idiopathic constipation: Code(s): K59.04 - Chronic idiopathic constipation Category: Medical (3) GERD (gastroesophageal reflux disease): Code(s): K21.9 - Gastro-esophageal reflux disease without esophagitis Category: Medical Qualifiers: Esophagitis presence: esophagitis presence not specified Qualified Code(s): K21.9 - Gastro-esophageal reflux disease without esophagitis (4) IBS (irritable bowel syndrome): Code(s): K58.9 - Irritable bowel syndrome, unspecified Category: Medical Qualifiers: Irritable bowel syndrome type: with constipation Qualified Code(s): K58.1 - Irritable bowel syndrome with constipation (5) LLQ abdominal pain: Code(s): R10.32 - Left lower quadrant pain Plan Will check for H pylori. Patient is chewing gum and will return for testing this afternoon. I will start her on Dexilant again as she did well on that before. Will check transglutaminase to rule out celiac. Lipase to rule out chronic pancreatitis as well as A1c level to see her blood sugars are controlled. Will add liver panel, vitamin B12, folate and vitamin-D level. Will increase Linzess to 290 mcg daily. Patient was encouraged to increase fluid intake and activity to promote better bowel motility. For now we will order Cologuard, however patient had colonoscopy in the past in 2010 as well as endoscopy with Dr. Cerda. If she will have positive Cologuard I have discussed this with her daughter and her that we will recommend for her to go for colonoscopy. Patient will return in our practice in 2-3 months, sooner on as needed basis. She is agreeable to this plan and verbalizes understanding of instructions. She was given the opportunity to ask questions and all questions answered. Thank you for allowing me to participate in her care Orders: Orders Vitamin B12 and Folate Today R19.7 - Diarrhea, unspecified Liver Panel Today R74.01 - Elevation of levels of liver transaminase levels H Pylori Breath Test Today K21.9 - Gastro-esophageal reflux disease without esophagitis Transglutaminase IgA Today R10.9 - Unspecified abdominal pain Lipase Today R10.9 - Unspecified abdominal pain Vitamin D 25-OH (D2 and D3) Today E55.9 - Vitamin D deficiency, unspecified Hemoglobin A1c Today E11.9 - Type 2 diabetes mellitus without complications Medications: New linaclotide (Linzess) 290 mcg PO QAM 30 caps 4RF K59.00 - Constipation, unspecified Refilled dexlansoprazole (Dexilant) 60 mg PO QPM 30 caps 1RF Discontinued linaclotide (Linzess) Discontinued Reason: Doctor's Order 145 mcg PO QAM 30 caps 5RF Coding Level of Care Code New Pt Level 4 (95282) Diagnoses Abdominal bloating R14.0 Chronic idiopathic constipation K59.04 Gastroesophageal reflux disease, unspecified whether esophagitis present K21.9 Esophagitis presence: esophagitis presence not specified Irritable bowel syndrome with constipation K58.1 Irritable bowel syndrome type: with constipation LLQ abdominal pain R10.32 Time Spent (min) 45 Comment 30 minutes spent with patient and additional 15 minutes spent reviewing her records
== END 2024-01-06 11:18 | disposition home or self-care (01) ==
PROVIDERS: PCP Registered Nurse; Visit Provider Nurse Practitioner Family
DX: R14.0 Abdominal distension (gaseous) (principal); K59.04 Chronic idiopathic constipation; K21.9 Gastro-esophageal reflux disease without esophagitis; K58.1 Irritable bowel syndrome with constipation; R10.32 Left lower quadrant pain
CPT/HCPCS: 99204

== ENCOUNTER 2024-01-06 13:37 | Outpatient (AMB) | payer MEDICAID, SELFPAY ==
--- NOTE | 2024-01-06 13:53 | AM.OFFVISNUR ---
Intake Visit Reasons: H Pylori Allergies Penicillins [PENICILLINS] Allergy (Unknown, Verified 01/06/24 10:07) UNKNOWN HIGH BLOOD PRESSURE MED Allergy (Unknown, Uncoded 08/02/23 01:03) ASTHMA Nursing Note Patient presents for collection of H Pylori breath test. Patient has been fasting for 1 hour (nothing to eat, drink, no chewing gum or smoking) has not taken any antacid medication for at least 2 weeks and has no allergies to artificial sweeteners.?? Assessment & Plan Assessment & Plan (1) GERD (gastroesophageal reflux disease): Code(s): K21.9 - Gastro-esophageal reflux disease without esophagitis Category: Medical Plan Patient presents for collection of H Pylori breath test. Patient has been fasting for 1 hour (nothing to eat, drink, no chewing gum or smoking) has not taken any antacid medication for at least 2 weeks and has no allergies to artificial sweeteners.???This test checks for an overgrowth of bacteria in your stomach. We all have bacteria but some may have more than others. It is treatable. if the test comes back negative there is nothing else to do. If the test result is positive we will treat you with 2 antibiotics and a medication to decrease the acid in your stomach (PPI) for 2 weeks. Two weeks after you have completed the treatment we will retest you to make sure the overgrowth has resolved. Patient Instructions: Process for specimen collection and reason for testing was explained to the patient. Specimen collection. Patient instructed to take a deep breath and then exhale into the blue bag, filling it up as much as possible. Patient instructed to drink a mixture of water and the artificial sweetener with a straw. A 15 minute wait period was observed. Patient instructed to take a deep breath and then exhale into the pink bag, filling it up as much as possible.??
== END 2024-01-06 14:41 | disposition home or self-care (01) ==
LOC: HO.HGI 13:38
PROVIDERS: PCP Registered Nurse; Visit Provider Nurse Practitioner Family
DX: K21.9 Gastro-esophageal reflux disease without esophagitis (principal)

== ENCOUNTER 2024-03-06 11:42 | Outpatient (AMB) | payer MEDICAID, SELFPAY ==
[2024-03-06 11:47] VITALS: BP 146/68; PULSE 62; O2SAT 98; BMI 37.0
--- NOTE | 2024-03-06 11:47 | MHC.OFFVIS ---
Vital Signs 03/06/24 11:47 Height 5 ft 5 in Weight 222 lb 10.67 oz BMI 37.0 BP 146/68 H Blood Pressure Location Lt brachial Position Sitting Pulse 62 Pulse Source Pulse Oximeter Pulse Oximetry (%) 98 Oxygen Delivery Method Room Air Intake Visit Reasons: 2 months f/u Intake Note: ESTABLISHED PATIENT Reason; 2 mo FU. Labs done. Changes/concerns? Pt is questioning some of the labs that were done. Pt would like to discuss concerns about accuracy. Pt believes it was the stool test that they are referring to. Coupling Machine Operator Required: Yes Coupling Machine Operator Services: Coupling Machine Operator Present Coupling Machine Operator Name: Allison [id number] Information Interpreted: non-clinical & clinical Accompanied by: Family/Other Allergies Penicillins [PENICILLINS] Allergy (Unknown, Verified 03/06/24 11:47) UNKNOWN HIGH BLOOD PRESSURE MED Allergy (Unknown, Uncoded 03/06/24 11:47) ASTHMA HPI HPI 2 months f/u: Details: LAST VISIT: Abdominal bloating Chronic idiopathic constipation GERD (gastroesophageal reflux disease) IBS (irritable bowel syndrome) LLQ abdominal pain Plan Will check for H pylori. Patient is chewing gum and will return for testing this afternoon. I will start her on Dexilant again as she did well on that before. Will check transglutaminase to rule out celiac. Lipase to rule out chronic pancreatitis as well as A1c level to see her blood sugars are controlled. Will add liver panel, vitamin B12, folate and vitamin-D level. Will increase Linzess to 290 mcg daily. Patient was encouraged to increase fluid intake and activity to promote better bowel motility. For now we will order Cologuard, however patient had colonoscopy in the past in 2010 as well as endoscopy with Dr. Cerda. If she will have positive Cologuard I have discussed this with her daughter and her that we will recommend for her to go for colonoscopy. Patient will return in our practice in 2-3 months, sooner on as needed basis. She is agreeable to this plan and verbalizes understanding of instructions. She was given the opportunity to ask questions and all questions answered. ? Thank you for allowing me to participate in her care Orders Orders Vitamin B12 and Folate Today R19.7 Liver Panel Today R74.01 H Pylori Breath Test Today K21.9 Transglutaminase IgA Today R10.9 Lipase Today R10.9 Vitamin D 25-OH (D2 and D3) Today E55.9 Hemoglobin A1c Today E11.9 Medications New linaclotide (Linzess) 290 mcg PO QAM 30 caps 4RF K59.00 Refilled dexlansoprazole (Dexilant) 60 mg PO QPM 30 caps 1RF Discontinued linaclotide (Linzess) Discontinued Reason: Doctor's Order 145 mcg PO QAM 30 caps 5RF TODAY'S VISIT Patient is here today for follow-up. Patient is accompanied by her daughter. Positive H pylori test. Patient reports history of H pylori in the past. Her blood sugars are not well controlled. Currently on insulin and Trulicity. Patient reports that she does not have any restrictions. Mostly Indonesian diet. Reports epigastric pain postprandially denies any dyspepsia, dysphagia or odynophagia. Patient denies melena, hematochezia, unintentional weight loss or ribbon like stools. Patient still does not want to go for colonoscopy. Encouraged to change her mind as I will be sending her for upper endoscopy due to positive H pylori. Patient will be treated with antibiotics today and will be retested. Patient denies any nausea or vomiting. Reports that she is moving her bowels well without any issues. Still taking Linzess daily. [facility] Medical History (Updated 03/06/24 @ 20:30 by Roxanna Cordoba [facility]) Uncontrolled diabetes mellitus with hyperglycemia IBS (irritable bowel syndrome) H. pylori infection High cholesterol Hypertension Diabetes Asthma Surgical History History of cholecystectomy History of tubal ligation History of esophagogastroduodenoscopy (EGD) (~05/2010) Hx of colonoscopy (~05/2010) Family History Father Heart disease Mother Cancer Diabetes HTN (hypertension) Sister Diabetes Brother Heart disease Maternal Grandmother Cancer Paternal Grandmother Cancer Social History Alcohol intake: current Alcohol intake frequency: does not drink Review of Systems Const Denies weight gain and Denies weight loss ENT Reports no additional complaints, Denies dysphagia and Denies odynophagia Card Reports no additional complaints Resp Reports no additional complaints GI Reports abdominal pain (LLQ), Denies belching, Denies melena, Reports bloating, Denies change in bowel habits, Denies dysphagia, Denies excessive flatus, Denies dyspepsia, Reports heartburn, Denies diarrhea, Denies loose stools, Denies nausea, Denies odynophagia and Denies vomiting Reports no additional complaints Musc Reports no additional complaints Neuro Reports no additional complaints Psych Reports no additional complaints Endo Reports no additional complaints Physical Exam Vital Signs: Last Vital Signs Pulse 62 03/06/24 11:47 BP 146/68 H 03/06/24 11:47 Pulse Ox 98 03/06/24 11:47 Oxygen Delivery Method Room Air 03/06/24 11:47 BMI result Body Mass Index 37.0 Const General: healthy appearing and no acute distress Nutritional Appearance: obese Orientation/consciousness: patient oriented x3 Resp Effort & Inspection: normal respiratory effort, able to speak in complete sentences, no tracheal deviation and symmetric chest movement Auscultation: clear to auscultation bilaterally Cardio Rate: regular rate GI Inspection: Yes normal to inspection, No distended and Yes obesity Palpation (GI): Soft to palpation, not firm, nontender and No hepatosplenomegaly present Auscultation: normal bowel sounds General: Yes no CVA tenderness Back/Spine/Pelvis Back: no CVA tenderness Skin General skin exam: elasticity normal, turgor normal and dry skin Neuro General: patient oriented x3 Psych Appearance: grossly normal Mental Status: mental status grossly normal Results Reviewed Results Reviewed: Laboratory Tests 01/06/24 01/06/24 11:37 14:08 Estimat Average Glucose 303 Hemoglobin A1c % 12.2 H Total Bilirubin 0.2 Direct Bilirubin < 0.2 AST 18 ALT 18 Alkaline Phosphatase 83 Vitamin B12 432 Folate 11.5 25-OH Vitamin D Total 21 L Tiss Transglutamin IgA <1.0 H. pylori Breath Test Positive Assessment & Plan Assessment & Plan (1) IBS (irritable bowel syndrome): Code(s): K58.9 - Irritable bowel syndrome, unspecified Category: Medical Qualifiers: Irritable bowel syndrome type: with constipation Qualified Code(s): K58.1 - Irritable bowel syndrome with constipation (2) Abdominal bloating: Code(s): R14.0 - Abdominal distension (gaseous) Category: Medical (3) Chronic idiopathic constipation: Code(s): K59.04 - Chronic idiopathic constipation Category: Medical (4) GERD (gastroesophageal reflux disease): Code(s): K21.9 - Gastro-esophageal reflux disease without esophagitis Category: Medical Qualifiers: Esophagitis presence: esophagitis presence not specified Qualified Code(s): K21.9 - Gastro-esophageal reflux disease without esophagitis (5) LLQ abdominal pain: Code(s): R10.32 - Left lower quadrant pain (6) Helicobacter pylori (H. pylori): Code(s): A04.8 - Other specified bacterial intestinal infections (7) Uncontrolled diabetes mellitus with hyperglycemia: Code(s): E11.65 - Type 2 diabetes mellitus with hyperglycemia Category: Medical Qualifiers: Diabetes mellitus type: type 2 Qualified Code(s): E11.65 - Type 2 diabetes mellitus with hyperglycemia Plan Quadruple therapy to treat H pylori patient is already on PPI. Will retest for eradication of bacteria. Patient will be scheduled for upper endoscopy. Patient was instructed to stay on medication without stopping. Better control of her diabetes. 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 Continue Linzess. Continue Dexilant. Avoid dietary triggers and late night snacking. Staying upright for minimum 3 hours after meals discussed with patient. Patient will return in 2 months so we can discuss going for upper endoscopy. Patient will think about going for colonoscopy. She is agreeable to this plan and verbalizes understanding of instructions. She was given the opportunity to ask questions and all questions answered. Thank you for allowing me to participate in her care Medications: New bismuth subsalicylate 2 tabs PO QID 14 days 112 tabs 0RF A04.8 - Other specified bacterial intestinal infections doxycycline hyclate 100 mg PO BID 14 days 28 caps 0RF metronidazole 1,000 mg (2 x 500 mg) PO BID 56 tabs 0RF A04.8 - Other specified bacterial intestinal infections Coding Level of Care Code Est Pt Level 4 (81988) Complex EM visit Add On G2211 Diagnoses Irritable bowel syndrome with constipation K58.1 Irritable bowel syndrome type: with constipation Abdominal bloating R14.0 Chronic idiopathic constipation K59.04 Gastroesophageal reflux disease, unspecified whether esophagitis present K21.9 Esophagitis presence: esophagitis presence not specified LLQ abdominal pain R10.32 Helicobacter pylori (H. pylori) A04.8 Uncontrolled type 2 diabetes mellitus with hyperglycemia E11.65 Diabetes mellitus type: type 2 Time Spent (min) 40 Comment 25 minutes spent with patient and additional 10 minutes spent reviewing her records
--- OUTSIDE RECORDS SUMMARY | 2024-03-06 13:31 | XMS_ITS | Encounter Summary ---
Author Organization [employer] Address [address] [facility] [address] [place] [address] Care Team Providers Care Microfiche Camera Operator Name Role Phone Luciana Zuniga Primary Care Provider [phone] Reason for Visit * Reason Comments Med Refill Encounter Details Date Type Department Care Team ([facility] st Contact Info) Description 02/09/2024 Refill [facility] MED & PEDS [address] [place], [place] [phone] Luciana Zuniga FNP [address] [place], [place] [phone] Social History Tobacco Use Types Packs/Day Years Used Date Smoking Tobacco: Never Passive Smoke Exposure: Never Smokeless Tobacco: Former Alcohol Use Standard Drinks/Week Comments Never 0 (1 standard drink = 0.6 oz pur e alcohol) Depression Answer Date Recorded Patient Health Questionnaire-9 Score 0 10/01/2022 Housing Stability Answer Date Recorded What is your housing situation today? I have jolynn colmenares 12/08/[address] you li ve. Do you have problems with any of the following? None of the above 12/08/2022 Food Insecurity Answer Date Recorded Within the past 12 months, y ou worried that your food would run out before you got money to buy more: Never True 12/08/2022 Within the past 12 months,th e food you bought just didn't last and you didn't have enough money to get more: Never True Transportation Answer Date Recorded In the past 12 months, has l ack of transportation kept you from medical appts, meetings, work or from getting things needed for daily living? No 12/08/2022 Utilities Answer Date Recorded In the past 12 months, has t he electric, gas, oil or water company threatened to shut off services in your home? No 12/08/2022 Depression Answer Date Recorded Patient Health Questionnaire-2 Score 0 10/01/2022 Comments Unknown Sex and Gender Information Value Date Recorded Sex Assigned at Female 12/14/2021 10:21 AM EDT Legal Sex Female 10:21 AM EDT Gender Identity Female 12/14/2021 10:21 AM EDT Sexual Orientation Straight 12/14/2021 10 :21 AM EDT documented as of this encounter Plan of Treatment Upcoming Encounters Date Type Department Care Team (Late st Contact Info) Description 03/19/2024 9:00 AM EST Office Visit [facility] MED & PEDS [address] [place] [address] Luciana Zuniga FNP [address] [place] [address] documented as of this encounter Visit Diagnoses Not on filedocumented in this encounter Additional Health Concerns Assessment Noted Time PHQ-9 Depression Total Score: 0 10/02/19 23 2:07 PM EDT documented as of this encounter Care Teams Microfiche Camera Operator Relationship Specialty Start Date End Date Luciana Zuniga FNP [address] [place] [address] PCP - General Family Medicine 10/12/21 documented as of this encounter
--- OUTSIDE RECORDS SUMMARY | 2024-03-06 13:31 | XMS_ITS | Encounter Summary ---
Author Organization [employer] Address [address] [facility] [address] [place] [address] Care Team Providers Care Singing Teacher Name Role Phone Luciana Zuniga Primary Care Provider [phone] Encounter Details Date Type Department Care Team (Late st Contact Info) Description 06/08/2023 Orders Only [facility] MED & PEDS [address] [place], [place] [phone] Luciana Zuniga FNP [address] [place], [place] [phone] Social History Tobacco Use Types Packs/Day Years [...] Description 03/19/2024 9:00 AM EST Office Visit [facility] MED & PEDS [address] [place], [place] [phone] Luciana Zuniga, GLASS CUT OFF SUPERVISOR [address] [place] [address] documented as of this encounter Procedures Procedure Name Priority Date/Time Associated Diagnosis Comments HELICOBACTER PYLORI, UREA BREATH TEST Routine 01/06/2024 2:08 PM EST VITAMIN D 25-OH (D2 AND D3) Routine 01/06/2024 11:37 AM EST VITAMIN B12/FOLATE, SERUM PANEL Routine 01/06/2024 11:37 AM EST TISSUE TRANSGLUTAMINASE AB, IGA Routine 01/06/2024 11:37 AM EST LIPASE Routine 01/06/2024 11:37 AM EST HEMOGLOBIN A1C Routine 01/06/2024 11:37 AM EST HEPATIC FUNCTION PANEL Routine 11:37 AM EST documented in this encounter Results * Helicobacter pylori, Urea Breath Test (01/06/2024 2:08 PM EST) H. pylori Breath Test Positive Negative [facility] Comment:Antimicrobials, prot on pump inhibitors and bismuthpreparations are known to suppress H. pylori. Ingestingthese medications within two weeks prior to performing thebreath test may produce negative test results. A positiveresult is still clinically valid. 01/06/2024 2:08 PM EST 01/09/2024 3:36 PM EST us Generic External Data Provider LAB BLOOD ORDERAB LES Final Result [facility] [address] [place] [phone] * (ABNORMAL) VITAMIN D 25-OH (D2 AND D3) (01/06/2024 11:37 AM EST) Vitamin D, 25-OH, D2 <4 ng/mL [facility] Comment:This test was develo ped and its analytical performancecharacteristics have been determined by [employer] [place], [place]. It hasnot been cleared or approved by the U.S. Food and DrugAdministration. This assay has been validated pursuantto the CLIA regulations and is used for clinicalpurposes.THIS TEST WAS PERFORMED AT:[employer] [id number] [place] [id number] SURESH MD,PHD Vitamin D, 25-OH, D3 21 ng/mL [facility] Comment:This test was develo ped and its analytical performancecharacteristics have been determined by [employer] [place], [place]. It hasnot been cleared or approved by the U.S. Food and DrugAdministration. This assay has been validated pursuantto the CLIA regulations and is used for clinicalpurposes. Vitamin D, 25-OH, Total 21(A) 30 - 100 ng/mL [facility] Comment:Vitamin D, 25-Hydrox y reports concentrations of twocommon forms, 25-OHD2 and 25-OHD3. 25-OHD3 indicatesboth endogenous production and supplementation.25-OHD2 is an indicator of exogenous sources such asdiet or supplementation. Therapy is based onmeasurement of Total 25-OHD, with levels <20 ng/mLindicative of Vitamin D deficiency, while levelsbetween 20 ng/mL and 30 ng/mL suggest insufficiency.Optimal levels are > or = 30 ng/mL.For additional information, please refer [email or web address](This link is being provided for informational/educational purposes only.) 01/06/2024 11:3 7 AM EST 01/06/2024 11:37 AM EST Generic External Data Provider LAB BLOOD ORDERAB LES Final Result Performing Organization Address [facility] Co de Phone Number [facility] [address] [place] [phone] * Tissue Transglutaminase Antibody, IgA (01/06/2024 11:37 AM EST) Transglutaminase IgA <1.0 U/mL [facility] Comment:Value Interpretation ----- <15.0 Antibody not detected> or = 15.0 Antibody detectedTHIS TEST WAS PERFORMED AT:[employer] [place] [phone] RIVAS MD 01/06/2024 11:3 7 AM EST 01/06/2024 11:37 AM EST Generic External Data Provider LAB BLOOD ORDERAB LES Final Result Performing Organization Address [facility] Co de Phone Number [facility] [address] [place] [phone] * Vitamin B12 (Cobalamin) and Folate Panel, Serum (01/06/2024 11:37 AM EST) Vitamin B12 432 200 - 900 pg/mL [facility] Comment:NORMAL 200-900 PG/ML INDETERMINATE 160-199 PG/ML DEFICIENT < 160 PG/ML Folate 11.5 > or = 4.0 ng/mL [facility] Comment:Reference Values:> o r = 4.0 ng/mL< 4.0 ng/mL suggests folate deficiency Methotrexate, aminopterin and folinic acid(leucovorin) are chemotherapeutic agents whose molecularstructures are similar to folate; therefore, the Architectfolate assay cannot be used for patients using these drugs. 01/06/2024 11:3 7 AM EST 01/06/2024 11:37 AM EST Generic External Data Provider LAB BLOOD ORDERAB LES Final Result Performing Organization Address City/[facility]/ZIP Co de Phone Number [facility] [address] [place] [phone] * Lipase (01/06/2024 11:37 AM EST) Lipase 21 8 - 78 U/L [facility] 01/06/2024 11:3 7 AM EST 01/06/2024 11:37 AM EST Generic External Data Provider LAB BLOOD ORDERAB LES Final Result Performing Organization Address [facility] Co de Phone Number [facility] [address] [place] [phone] * Hepatic Function Panel (01/06/2024 11:37 AM EST) Bilirubin, Total 0.2 0.0 - 1.0 mg/dL [facility] Bilirubin, Direct <0.2 0.0 - 0.5 mg/dL [facility] Aspartate Amino Transferase 18 5 - 31 U/L [facility] Alanine Aminotransferase 18 0 - 31 U/L [facility] Total Protein 7.2 6.5 - 8.0 g/dL [facility] Albumin Level 4.1 3.5 - 5.0 g/dL [facility] Alkaline Phosphatase 83 39 - 117 U/L [facility] 01/06/2024 11:3 7 AM EST 01/06/2024 11:37 AM EST us Generic External Data Provider LAB BLOOD ORDERAB LES Final Result Performing Organization Address [facility] Co de Phone Number [facility] [address] [place] [phone] * (ABNORMAL) Hemoglobin A1c (01/06/2024 11:37 AM EST) Hemoglobin A1c 12.2(H) <6.0 % [facility] Comment:Hemoglobin A1C Refer ence Range Adults: 4.8 - 6.0 % Non diabetic: < 6.0 % Goal: < 7.0 %Additional Action Suggested: > 8.0 %Note: Hemoglobin A1c results are invalid for patients with abnormal amounts of HbF. Blood transfusions may impact the HbA1c concentration in the patient sample. Estimated Average Glucose 303 mg/dL [facility] Comment:eAG = Estimated ave rage glucose which is %A1C expressed asaverage glucose, using the formula of the V3Y-WhvooegXmjcwyg Glucose study (ADAG), Diabetes Care, Vol.31,#8,Sep. 2007 01/06/2024 11:3 7 AM EST 01/06/2024 11:37 AM EST us Generic External Data Provider LAB BLOOD ORDERAB LES Final Result Performing Organization Address [facility] Co de Phone Number [facility] [address] [place] [phone] documented in this encounter Visit Diagnoses Not on filedocumented in this encounter Additional Health Concerns Assessment Noted Time PHQ-9 Depression Total Score: 0 10/02/19 23 2:07 PM EDT documented as of this encounter Care Teams Singing Teacher Relationship Specialty Start Date End Date Luciana Zuniga FNP [address] [place] [address] PCP - General Family Medicine 10/12/21 documented as of this encounter
--- OUTSIDE RECORDS SUMMARY | 2024-03-06 13:31 | XMS_ITS | Encounter Summary ---
Author Organization [employer] Address [address] [place] [address] Care Team Providers Care Photo Tech Name Role Phone Luciana Zuniga Primary Care Provider [phone] Reason for Visit * Reason Comments Med Refill Encounter Details Date Type Department Care Team ([facility] st Contact Info) Description 02/25/2024 Refill [facility] MEDICINE [address] [place] [address] Luciana Zuniga FNP [address] [place], [place] [phone] Social History Tobacco Use Types Packs/Day Years [...] 03/19/2024 9:00 AM EST Office Visit [facility] MED & PEDS [address] [place] [address] Luciana Zuniga FNP [address] [place] [address] documented as of this encounter Visit Diagnoses Not on filedocumented in this encounter Additional Health Concerns Assessment Noted Time PHQ-9 Depression Total Score: 0 10/02/19 23 2:07 PM EDT documented as of this encounter Care Teams Photo Tech Relationship Specialty Start Date End Date Luciana Zuniga FNP [address] [place] [address] PCP - General Family Medicine 10/12/21 documented as of this encounter
--- OUTSIDE RECORDS SUMMARY | 2024-03-06 13:31 | XMS_ITS | Encounter Summary ---
Author Organization [employer] Address [address] [facility] [address] [place] [address] Care Team Providers Care Puddler Pile Driving Name Role Phone Luciana Zuniga NETO Primary Care Provider [phone] Reason for Visit * Reason Onset Date Comments Chart Prep 02/20/2024 Encounter Details Date Type Department Care Team ([facility] st Contact Info) Description 02/20/2024 Telephone [facility] MED & PEDS [address] [place], [place] [phone] Luz Elena Lowery MA Chart Prep Social History Tobacco Use Types Packs/Day Years [...] AM EDT documented as of this encounter Miscellaneous Notes * Telephone Encounter - Luz Elena Silva MA - 02/20/2024 11:02 AM EST Chart Prep Labs: done Images: not done Vaccines due: yes Referrals: pending appt Screenings: colonoscopy , mammogram , pap smear , Foot Exam, Lipid Panel, Retinopathy, Urine Protein Overdue care gaps: A1C, Glucose, Sbirt, PHQ-9 documented in this encounter Plan of Treatment Upcoming Encounters Date Type Department Care Team (Late st Contact Info) Description 03/19/2024 9:00 AM EST Office Visit [facility] MED & PEDS [address] [place] [address] Luciana Zuniga FNP [address] [place] [address] documented as of this encounter Visit Diagnoses Not on filedocumented in this encounter Additional Health Concerns Assessment Noted Time PHQ-9 Depression Total Score: 0 10/02/19 23 2:07 PM EDT documented as of this encounter Care Teams Puddler Pile Driving Relationship Specialty Start Date End Date Luciana Zuniga FNP [address] [place] [address] PCP - General Family Medicine 10/12/21 documented as of this encounter
--- OUTSIDE RECORDS SUMMARY | 2024-03-06 13:31 | XMS_ITS | Clinical Summary ---
Author Organization [employer] Address [address] [facility] [address] [place] [address] Care Team Providers Care Journeyman Pipe Fitter Name Role Phone Luciana Zuniga Primary Care Provider [phone] Allergies No known active allergies Medications Blood Glucose Monitoring Suppl (FreeStyle Oxford Lite) w/Device kit TEST BLOOD SUGAR 4 TIMES A DAY 022 Active Dexilant [address] capsule Take 1 capsule by mouth in the morning. 023 Active Linzess 145 MCG capsule Take 145 mcg by mouth in the morning. 023 Active valACYclovir (Valtrex) 1 g tablet TAKE 1 TABLET BY MOUTH EVERY 8 HOURS FOR 7 DAYS 022 Active senna (Senokot) 8.6 MG tablet Take 2 tablets (17.2 mg) by mouth if needed at bedtime for constipation. 60 tablet 023 Active TRUEplus Lancets 33G misc TEST BLOOD SUGAR FIVE TIMES DAILY 200 each 023 Active glucose blood (FREESTYLE LITE) test strip TEST BLOOD SUGAR FIVE TIMES DAILY 150 each 023 Active Blood Pressure Monitor kitIndications:Es sential hypertension Check blood pressure twice a week. Dx hypertension 1 kit 023 Active Mometasone Furoate (Asmanex HFA) 100 MCG/ACT aerosol INHALE 2 PUFFS BY MOUTH TWICE DAILY. RINSE MOUTH AFTER USING. 13 g 3 024 Active rosuvastatin (Crestor) 40 MG tabletIndications :Mixed hyperlipidemia TAKE 1 TABLET BY MOUTH AT BEDTIME 90 tablet 3 03/18/2 024 Active fenofibrate (Triglide) 160 MG tabletIndications :Mixed hyperlipidemia TAKE 1 TABLET BY MOUTH EVERY MORNING 90 tablet 3 Active metFORMIN XR (Glucophage-XR) 500 MG 24 hr tablet TAKE 2 TABLETS BY MOUTH ONCE DAILY IN THE MORNING 180 tablet 2 Active insulin lispro protamine-insulin lispro (HumaLOG Mix 75-25) (75-25) 100 UNIT/ML injectionIndicati ons:Type 2 diabetes mellitus treated with insulin ([facility]) INJECT 40 UNITS SUBCUTANEOUSLY EVERY DAY IN THE MORNING AND INJECT 45 UNITS SUBCUTANEOUSLY EVERY DAY IN THE EVENING 30 mL 5 Active gabapentin (Neurontin) 100 MG capsuleIndication s:Fibromyalgia TAKE 1 CAPSULE BY MOUTH THREE TIMES DAILY 90 capsule 11 Active loratadine (Claritin) 10 MG tabletIndications :Seasonal allergies TAKE 1 TABLET BY MOUTH EVERY MORNING NEEDED FOR ALLERGIES 90 tablet 3 024 Active Trulicity 1.5 MG/0.5ML solution pen-injectorIndic ations:Type 2 diabetes mellitus without complication, 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 ([facility]) INJECT ONE PEN (=1.5MG) SUBCUTANEOUSLY ONCE A WEEK DIRECTED 2 mL 3 Active FREESTYLE LITE test stripIndications: Type 2 diabetes mellitus without complication, with long-term current use of insulin ([facility]) Use to test blood sugar 3 times daily 100 each 12 024 2024 Active Lancets miscIndications:T ype 2 diabetes mellitus without complication, with long-term current use of insulin ([facility]) Use to test blood sugar 3 times daily 100 each Active Alcohol Swabs 70 % padsIndications:T ype 2 diabetes mellitus without complication, with long-term current use of insulin ([facility]) Use to test blood sugar 3 times daily 100 each 11 Active Blood Glucose Monitoring Suppl (FreeStyle Oxford Lite) w/Device kitIndications:Ty pe 2 diabetes mellitus without complication, with long-term current use of insulin ([facility]) Use to test blood sugar 3 times daily 1 kit Active albuterol (Ventolin HFA) 108 (90 Base) MCG/ACT inhalerIndication s:Moderate persistent asthma without complication INHALE 2 PUFFS EVERY 4 to 6 HOURS NEEDED FOR WHEEZING OR SHORTNESS OF BREATH 18 g 11 024 Active albuterol (2.5 MG/3ML) 0.083% nebulizer solutionIndicatio ns:Moderate persistent asthma without complication INHALE 1 AMPULE USING A NEBULIZER EVERY 4 to 6 HOURS NEEDED FOR WHEEZING OR SHORTNESS OF BREATH 90 mL 11 024 Active montelukast (Singulair) 10 MG tablet TAKE 1 TABLET BY MOUTH EVERY EVENING 90 tablet 3 024 Active Continuous Glucose Sensor (FreeStyle Lorenza 2 Sensor) miscIndications:T ype 2 diabetes mellitus without complication, with long-term current use of insulin ([facility]) TEST BLOOD SUGAR. CHANGE EVERY 14 DAYS 2 each 024 Active Continuous Glucose Canopy Stringer (FreeStyle Lorenza 2 [place]) deviceIndications :Type 2 diabetes mellitus without complication, with long-term current use of insulin ([facility]) Use in combination with sensor to monitor blood sugar levels. 1 each 024 Active Lantus SoloStar 100 UNIT/ML pen INJECT 80 UNITS SUBCUTANEOUSLY AT BEDTIME 45 mL 1 024 Active Acetaminophen Extra Strength 500 MG tabletIndications :Polyarthralgia TAKE 1 TABLET BY MOUTH EVERY 4 TO 6 HOURS NEEDED FOR PAIN. NO MORE THAN 8 TABLETS PER 24 HOURS FOR PAIN 100 tablet 5 024 Active valsartan (Diovan) 80 MG tablet TAKE 1 TABLET BY MOUTH EVERY MORNING 90 tablet 3 024 Active Pentips Generic Pen [place] 32G X 4 MM misc USE WITH INSULIN 100 each 4 025 Active valsartan (Diovan) 80 MG tablet TAKE 1 TABLET BY MOUTH EVERY MORNING 90 tablet 3 023 2023 Discontinued Pentips 32G X 4 MM misc USE DAILY WITH INSULIN 100 each 4 024 2024 Discontinued Active Problems Problem Noted Date Diagnosed Date Polyarthralgia 05/17/2023 Assessment & Plan (05/17/2023 2:02 PM EDT): Acute on chronic pain affecting large and small joints. Bilateral and symmetric. Joints include: digits, wrists, elbows, knees, among others Cont gabapentin 100mg TID and APAP PRN Initial eval: lab work including JORGE, sed rate, CRP, RF, CCP Referral to physical therapy placed Mixed hyperlipidemia 07/09/2022 Overview (07/09/2022): ?? Continue rosuvastatin 40mg nightly ?? Continue fenofibrate 160mg daily Lipids: Sep 2021: TC 251, LDL 162, HDL 51, TG 215 Healthcare maintenance 07/09/2022 Assessment & Plan (05/17/2023 2:03 PM EDT): -Pap: last 2011. Pt previously declined repeat pap d/t discomfort with speculum exams. Discussed self insertion of speculum vs blind HPV swab. Pt will consider and may discuss at subsequent appt -Colonoscopy: 05/2010, 10 yr repeat. Upcoming appt with [facility] -Mammogram: [facility] 14 August 2021 -Bone density: ordered April 2023 Assessment & Plan (01/09/2023 6:01 PM EST): -Pap: last 2011. Pt previously declined repeat pap d/t discomfort with speculum exams. Discussed self insertion of speculum vs blind HPV swab. Pt will consider and may discuss at subsequent appt -Colonoscopy: 05/2010, 10 yr repeat. Upcoming appt with [facility] Assessment & Plan (10/03/2022 7:36 AM EDT): -Pap: last 2011. Pt previously declined repeat pap d/t discomfort with speculum exams. Discussed self insertion of speculum vs blind HPV swab. Pt will consider and may discuss at subsequent appt -Colonoscopy: 05/2010, 10 yr repeat. Upcoming appt with [facility] -Mammogram: [facility] 14 August 2021 Assessment & Plan (07/09/2022 8:05 AM EDT): -Pap: last 2011. Pt previously declined repeat pap d/t discomfort with speculum exams. Discussed self insertion of speculum vs blind HPV swab. Pt will consider and may discuss at subsequent appt -Colonoscopy: 05/2010, 10 yr repeat. Upcoming appt with [facility] -Mammogram: [facility] 14 August 2021 Diabetic gastroparesis (CMS/HCC) 12/20/2014 Essential hypertension 12/20/2014 Overview (01/09/2023): ?? Continue valsartan 80mg daily Assessment & Plan (01/09/2023 5:58 PM EST): Home BP monitor sent to pharmacy Encourage lifestyle modifications and ED precautions Assessment & Plan (10/03/2022 7:35 AM EDT): ?? Continue valsartan 80mg daily Assessment & Plan (07/09/2022 7:44 AM EDT): ?? Continue valsartan 80mg daily Irritable bowel syndrome 12/20/2014 Assessment & Plan (10/03/2022 7:35 AM EDT): ?? Continue following with [facility] ?? Continues with Linzess 145 mcg daily Assessment & Plan (07/09/2022 7:43 AM EDT): ?? Continue following with [facility] ?? Continues with Linzess 145 mcg daily ?? Currently experiencing symptoms of constipation, going 7 days w/o BM. Declines interest in Miralax. Start senna 2 tabs nightly PRN. Also reviewed lifestyle interventions including hydration, movement, and high fiber diet. Type 2 diabetes mellitus 12/20/2014 Overview (11/13/2023): Microalbumin/Cr:Alb: Dec 2022 WNL Eye exam: reports previous at [facility], referral to [facility] placed 07/09/22 PNA: PCV20 Dec 2022 Foot exam/peripheral pulses: no loss of protective sensation 08/18/21 MOSHE/ARB: yes Statin: yes Lab Results Component Value Date CHOL 172 01/03/2023 TRIG 149 01/03/2023 HDL 53 01/03/2023 LDLCHOLCAL 90 01/03/2023 Assessment & Plan (11/13/2023 8:36 AM EDT): Lab Results Component Value Date HGBA1C 12.2 (A) 10/20/2023 HGBA1C 10.1 (A) 05/13/2023 HGBA1C 13.4 (H) 01/03/2023 HGBA1C 13.3 (A) 01/03/2023 HGBA1C 10.9 (A) 10/01/2022 HGBA1C 11.8 (H) 12/27/2019 -A1c goal < 7%, not well controlled -Goal to improve pt understanding of diabetes, nutrition, and medications. Current med regimen: Trulicity 1.5mg subcutaneous weekly Lantus 80 units nightly Humalog 75/25 40 units every morning and 45 units every afternoon Metformin 1000mg XR with evening meal - CGM renewal requested - Counseling regarding nutrition provided, as well as educational handouts from [employer] - Will not make med adjustments at this time until have better understanding of patient's home BG readings and how much insulin she is using. - Referral to [facility] CDTM team - ED precautions reviewed Assessment & Plan (05/17/2023 2:04 PM EDT): Lab Results Component Value Date HGBA1C 10.1 (A) 05/13/2023 HGBA1C 13.4 (H) 01/03/2023 HGBA1C 13.3 (A) 01/03/2023 HGBA1C 10.9 (A) 10/01/2022 HGBA1C 9.7 (A) 07/06/2022 HGBA1C 11.8 (H) 12/27/2019 -A1c goal < 7%, not well controlled, but noted improvement over the past 4 months -Goal to increase med adherence Current med regimen: Trulicity 1.5mg subcutaneous weekly Lantus 80 units nightly Humalog 75/25 40 units every morning and 45 units every afternoon Metformin 1000mg XR with evening meal CGM in place Lifestyle interventions reviewed ED precautions reviewed Assessment & Plan (01/09/2023 6:01 PM EST): Lab Results Component Value Date HGBA1C 13.4 (H) 01/03/2023 HGBA1C 13.3 (A) 01/03/2023 HGBA1C 10.9 (A) 10/01/2022 HGBA1C 9.7 (A) 07/06/2022 HGBA1C 11.8 (H) 12/27/2019 -A1c goal < 7%, not well controlled -Reports inconsistently administering insulin at home Current med regimen: ?? Trulicity 1.5mg subcutaneous weekly ?? Lantus 80 units nightly ?? Humalog 75/25 40 units every morning and 45 units every afternoon ?? Metformin 1000mg XR with evening meal CGM in place Lifestyle interventions reviewed ED precautions reviewed Follow up in 2 weeks, sooner as needed. Assessment & Plan (10/03/2022 7:34 AM EDT): A1c trend: 10/02/21: 10.5% 08/18/21: 12.3% 01/15/21: 12.5%. Lab Results Component Value Date HGBA1C 10.9 (A) 10/01/2022 -Reports BG at home in the 100-200s fasting, max 300 post prandial. Inconsistently administering insulin, says she does when BG is elevated. No recent readings. Current med regimen: ?? Trulicity 1.5mg subcutaneous weekly ?? Lantus 80 units nightly ?? Humalog 75/25 40 units every morning and 45 units every afternoon Change metformin to 1000mg XR with evening meal (pt reporting GI SE) CGM approved, to be applied in pharmacy after appt today. BG poorly controlled and unclear how often pt is using insulin. Lifestyle interventions reviewed ED precautions reviewed Follow up in 2 weeks, sooner as needed. Assessment & Plan (07/09/2022 7:57 AM EDT): A1c trend: 10/02/21: 10.5% 08/18/21: 12.3% 01/15/21: 12.5%. Lab Results Component Value Date HGBA1C 9.7 (A) 07/06/2022 -BG in office [facility], improved to 400s s/p 10 units lispro -pt reports did not take her long acting insulin last night, reinforced education and admin instructions re: basal vs bolus insulin. -UA neg for ketones, but was positive for nitrites. Mild urinary frequency, but otherwise denies urinary symptoms. tx w/ macrobid. Current med regimen: ?? Metformin 850mg BID ?? Trulicity 1.5mg subcutaneous weekly ?? Lantus 80 units nightly ?? Humalog 75/25 40 units every morning and 45 units every afternoon Continue current med regimen, assess adherence. Home blood glucose log provided, and will also start PA for CGM. Goal to decrease bolus insulin in future if possible. Follow up in 2 weeks, sooner as needed. Vitamin D deficiency 12/20/2014 Backache 12/20/2014 Chronic mental disorder 12/20/2014 Eczema 12/20/2014 Fibromyositis 12/20/2014 Illiteracy 12/20/2014 Moderate persistent asthma without complication 12/20/2014 Resolved Problems Problem Noted Date Diagnosed Date Resolved Date COVID-19 09/30/2022 10/01/2022 Encounters Date Type Department Care Team Description 02/25/2024 Refill [facility] [address] [place] [phone] Luciana Zuniga FNP 02/20/2024 Telephone [facility] [address] [place] [address] Luz Elena Lowery [place] Chart Prep 02/16/2024 Telephone [facility] [address] [place] [address] Luciana Zuniga FNP 02/09/2024 Refill [facility] [address] [place] [address] Luciana Zuniga FNP 01/19/2024 Telephone [facility] [address] [place] [address] Luciana Zuniga FNP Faizan recall 12/14/2023 Refill [facility] [address] [place] [address] Luciana Zuniga FNP Polyarthralgia 12/05/2023 Telephone [facility] [address] [place] [address] Luciana Zuniga FNP from Last 3 Months Immunizations Name Administration Dates Next Due Influenza injectable quadriv alent IIV4 with preservative 01/01/2016 Influenza injectable quadrivalent preservative f ree 01/03/2023 Influenza, Split (incl. purified surface antigen ) 10/20/2012 Pneumococcal Conjugate PCV 20 01/03/2023 Pneumococcal Polysaccharide PPSV23 03/30/2010 TD (adult), 2 Lf tetanus tox oid, preservative free, adsorbed 10/02/2021 Td (adult), 5 Lf tetanus tox oid, preservative free, adsorbed 11/20/2013 Tdap 09/24/2011 Social History Tobacco Use Types Packs/Day Years Used Date Smoking Tobacco: Never Passive Smoke Exposure: Never Smokeless Tobacco: Former Tobacco Cessation:Counseling Given: Not Answered Alcohol Use Standard Drinks/Week Comments Never 0 [...] Orientation Straight 12/14/2021 10 :21 AM EDT Last Filed Vital Signs Vital Sign Reading Time Taken Comments Blood Pressure 148/64 11/11/2023 3:38 PM EDT Pulse 66 11/11/2023 3:37 PM EDT Temperature 36.6 ??C (97.8 ??F) 11/11/2023 3:37 PM ED T Respiratory Rate 18 11/11/2023 3:37 PM EDT Oxygen Saturation 98% 11/11/2023 3:37 PM EDT Inhaled Oxygen Concentration - - Weight 100 kg (220 lb 6 oz) 11/11/2023 3:37 PM E DT Height 165.1 cm (5' 5 ) 11/11/2023 3:37 PM EDT Body Mass Index 36.67 11/11/2023 3:37 PM EDT Plan of Treatment Upcoming Encounters Date Type Department Care Team (Late st Contact Info) Description 03/19/2024 9:00 AM EST Office Visit [facility] [address] [place], [place] [phone] Luciana Zuniga, [employer] [address] [place], [place] [phone] Health Maintenance Due Date Last Done Comments CT Colonography 1961 Colonoscopy 1961 Colorectal Cancer Screening 1961 FIT DNA/Cologuard 1961 FIT 1961 FOBT 1961 Sigmoidoscopy 1961 Diabetes: Foot Exam 1971 Eye Exam 1971 Alcohol/Substance Use Screening 1973 Pap Smear 1982 Cervical Cancer Screening 1991 HPV/Cotest 1991 Zoster Vaccines (1 of 2) 2011 RSV Patients and Patients Aged 60 years or older (1 - Risk 60-74 years 1-dose series) 2021 Mammogram 08/29/2023 08/28/2021 Depression Screening 10/02/2023 10/01/2022, 10/02/19 23 COVID-19 Vaccine ( season) 2023 06/23/2022, 03/10/2021, 07/29/2020, Additional history exists Influenza Vaccine (#1) 2023 , 01/01/2016, 10/20/2012 Diabetes: Urine Protein Screening 01/04/2024 01/03/2023, 10/01/2021, 01/21/2021 Lipid Panel 01/04/2024 01/03/2023, 09/14, 01/21/2021, Additional history exists Diabetes: Hemoglobin A1C 04/07/2024 024, 10/20/2023, 05/13/2023, Additional history exists SDOH Screening 05/04/2024 05/05/2023 Tobacco Screening 11/10/2024 11/11/2023 DTaP/Tdap/Td Vaccines (4 - Td or Tdap) 10/03/2031 10/02/2021, 11/20/2013, 09/24/2011 HIV Screening Completed 01/03/2023 Hepatitis C Screening Completed 01/03/2023 Pneumococcal Vaccine: Pediatrics (0 to 5 Years) and At-Risk Patients (6 to 64 Years) Completed 01/03/2023, 03/30/2010 HIB Vaccines Aged Out No longer eligi ble based on patient's age to complete this topic HPV Vaccines Aged Out No longer eligi ble based on patient's age to complete this topic Hepatitis A Vaccines Aged Out No long er eligible based on patient's age to complete this topic Hepatitis B Vaccines Aged Out No long er eligible based on patient's age to complete this topic IPV Vaccines Aged Out No longer eligi ble based on patient's age to complete this topic Meningococcal Vaccine Aged Out No alberta almita eligible based on patient's age to complete this topic RSV under 20 months Aged Out No longe r eligible based on patient's age to complete this topic Rotavirus Vaccines Aged Out No longer eligible based on patient's age to complete this topic Procedures Procedure Name Priority Date/Time Associated Diagnosis Comments HELICOBACTER PYLORI, UREA BREATH TEST Routine 01/06/2024 2:08 PM EST VITAMIN D 25-OH (D2 AND D3) Routine 01/06/2024 11:37 AM EST TISSUE TRANSGLUTAMINASE AB, IGA Routine 01/06/2024 11:37 AM EST VITAMIN B12/FOLATE, SERUM PANEL Routine 01/06/2024 11:37 AM EST LIPASE Routine 01/06/2024 11:37 AM EST HEPATIC FUNCTION PANEL Routine 11:37 AM EST HEMOGLOBIN A1C Routine 01/06/2024 11:37 AM EST ALBUMIN, RANDOM URINE W/CREATININE Routine 01/03/2023 11:40 AM EST Healthcare maintenance HEPATITIS C VIRAL RNA, QUANTITATIVE, REAL-TIME PCR Routine 01/03/2023 11:31 AM EST Healthcare maintenance HIV 1/2 ANTIGEN/ANTIBODY, FOURTH GENERATION W/RFL Routine 01/03/2023 11:31 AM EST Healthcare maintenance LIPID PANEL, STANDARD Routine 01/03/2023 11:31 AM EST Healthcare maintenance MAMMOGRAM GENERIC Routine 08/28/2021 1:3 0 PM EDT from Last 3 Months or Most Recently Relevant to Health Maintenance Results * Helicobacter pylori, Urea Breath Test (01/06/2024 2:08 PM EST) H. pylori Breath Test Positive Negative [facility] Comment:Antimicrobials, prot on pump inhibitors and bismuthpreparations are known to suppress H. pylori. Ingestingthese medications within two weeks prior to performing thebreath test may produce negative test results. A positiveresult is still clinically valid. 01/06/2024 2:08 PM EST 01/09/2024 3:36 PM EST us Generic External Data Provider LAB BLOOD ORDERAB LES Final Result [facility] [address] [place] [phone] * (ABNORMAL) VITAMIN D 25-OH (D2 AND D3) (01/06/2024 11:37 AM EST) Vitamin D, 25-OH, D2 <4 ng/mL [facility] Comment:This test was develo ped and its analytical performancecharacteristics have been determined by [employer] [place], [place]. It hasnot been cleared or approved by the U.S. Food and DrugAdministration. This assay has been validated pursuantto the CLIA regulations and is used for clinicalpurposes.THIS TEST WAS PERFORMED AT:[employer] [id number] [place] [phone] SURESH MD,PHD Vitamin D, 25-OH, D3 21 ng/mL [facility] Comment:This test was develo ped and its analytical performancecharacteristics have been determined by [employer] [place], [place]. It hasnot been cleared or approved by the U.S. Food and DrugAdministration. This assay has been validated pursuantto the CLIA regulations and is used for clinicalpurposes. Vitamin D, 25-OH, Total 21(A) 30 - 100 ng/mL [facility] Comment:Vitamin D, 25-Hydrox y reports [...] = 30 ng/mL.For additional information, please refer [email or web address].[employer]/faq/WIT650(This link is being provided for informational/educational purposes only.) 01/06/2024 11:3 7 AM EST 01/06/2024 11:37 AM EST us Generic External Data Provider LAB BLOOD ORDERAB LES Final Result [facility] [address] [place] [phone] * Vitamin B12 (Cobalamin) and Folate Panel, Serum (01/06/2024 11:37 AM EST) Vitamin B12 432 200 - 900 pg/mL [facility] Comment:NORMAL 200-900 PG/ML INDETERMINATE 160-199 PG/ML DEFICIENT < 160 PG/ML Folate 11.5 > or = 4.0 ng/mL [facility] Comment:Reference Values:> o r = 4.0 ng/mL< 4.0 ng/mL suggests folate deficiency Methotrexate, aminopterin and folinic acid(leucovorin) are chemotherapeutic agents whose molecularstructures are similar to folate; therefore, the Architectfolate assay cannot be used for patients using these drugs. 01/06/2024 11:3 7 AM EST 01/06/2024 11:37 AM EST Generic External Data Provider LAB BLOOD ORDERAB LES Final Result Performing Organization Address [facility] Co de Phone Number [facility] [address] [place] [phone] * Tissue Transglutaminase Antibody, IgA (01/06/2024 11:37 AM EST) Transglutaminase IgA <1.0 U/mL [facility] Comment:Value Interpretation ----- <15.0 Antibody not detected> or = 15.0 Antibody detectedTHIS TEST WAS PERFORMED AT:[employer] [address] [id number] RIVAS MD 01/06/2024 11:3 7 AM EST 01/06/2024 11:37 AM EST Generic External Data Provider LAB BLOOD ORDERAB LES Final Result Performing Organization Address [facility] Co de Phone Number [facility] [address] [place] [phone] * Lipase (01/06/2024 11:37 AM EST) Pathologist [facility] Lipase 21 8 - 78 U/L [facility] 01/06/2024 11:3 7 AM EST 01/06/2024 11:37 AM EST Generic External Data Provider LAB BLOOD ORDERAB LES Final Result Performing Organization Address [facility] Co de Phone Number [facility] [address] [place] [phone] * (ABNORMAL) Hemoglobin A1c (01/06/2024 11:37 AM EST) Hemoglobin A1c 12.2(H) <6.0 % [facility] Comment:Hemoglobin A1C Refer ence Range Adults: 4.8 - 6.0 % Non diabetic: < 6.0 % Goal: < 7.0 %Additional Action Suggested: > 8.0 %Note: Hemoglobin A1c results are invalid for patients with abnormal amounts of HbF. Blood transfusions may impact the HbA1c concentration in the patient sample. Estimated Average Glucose 303 mg/dL [facility] Comment:eAG = Estimated ave rage glucose which is %A1C expressed asaverage glucose, using the formula of the T0H-FuwzefhHbdnoes Glucose study (ADAG), Diabetes Care, Vol.31,#8,Sep. 2007 01/06/2024 11:3 7 AM EST 01/06/2024 11:37 AM EST us Generic External Data Provider LAB BLOOD ORDERAB LES Final Result Performing Organization Address [facility] Co de Phone Number [facility] [address] [place] [phone] * Hepatic Function Panel (01/06/2024 11:37 AM EST) Bilirubin, Total 0.2 0.0 - 1.0 mg/dL [facility] Bilirubin, Direct <0.2 0.0 - 0.5 mg/dL [facility] Aspartate Amino Transferase 18 5 - 31 U/L [facility] Alanine Aminotransferase 18 0 - 31 U/L [facility] Total Protein 7.2 6.5 - 8.0 g/dL [facility] Albumin Level 4.1 3.5 - 5.0 g/dL [facility] Alkaline Phosphatase 83 39 - 117 U/L [facility] 01/06/2024 11:3 7 AM EST 01/06/2024 11:37 AM EST us Generic External Data Provider LAB BLOOD ORDERAB LES Final Result Performing Organization Address [facility] Co de Phone Number [facility] [address] [place] [address] [phone] * Albumin, Random Urine W/Creatinine (01/03/2023 11:40 AM EST) Creatinine, Urine 146.72 mg/dL [facility] Microalbumin Urine 35.0 mg/L [facility] Microalbum Creatinine Ratio Ur 23.8 <30 ug/mg cr [facility] Comment:Albumin/Creatinine R atio Reference Ranges: Normal: < 30 ug/mg creatinine Microalbuminuria: 30 - 300 ug/mg creatinineClinical Albuminuria: > 300 ug/mg creatinine Urine 01/03/2023 11:4 0 AM EST 01/03/2023 2:52 PM EST us Luciana Zuniga PORCELAIN ENAMEL LABORER LAB URINE ORDERABLES Final Res ult Performing Organization Address [facility] de Phone Number [facility] [address] [place] [address] [phone] * Hepatitis C Viral RNA, Quantitative, Real-Time PCR (01/03/2023 11:31 AM EST) Hepatitis C Viral Load <15 NOT DETECTED NOT DETECTED IU/mL [facility] HCV Log PCR <1.18 NOT DETECTED NOT DETECTED Log IU/mL [facility] Comment:This test was perfor med using Real-Time Polymerase ChainReaction.Reportable Range: 15 IU/mL to 100,000,000 IU/mL(1.18 Log IU/mL to 8.00 Log IU/mL).The analytical performance characteristics of thisassay have been determined by [employer].The modifications have not been cleared or approved bythe FDA. This assay has been validated pursuant to theCLIA regulations and is used for clinical purposes.For more information on this test, go to:http://education.Vigster/faq/PZR86q5(This link is being provided for informational/educational purposes only.)THIS TEST WAS PERFORMED AT:[employer] [place] [id number] RIVAS MD Blood 01/03/2023 11:3 1 AM EST 01/03/2023 2:37 PM EST Luciana Zuniga [facility] LAB BLOOD ORDERABLES Final Res ult [facility] [address] [place] [phone] * HIV-1/2 Antigen and Antibodies, Fourth Generation, with Reflexes (01/03/2023 11:31 AM EST) Pathologist [facility] HIV AB/AG Nonreactive Nonreactive [facility] Comment:HIV-1 p24 Ag and/or HIV-1/HIV-2 Ab not detected.A test result that is nonreactive does not exclude thepossibility of exposure to or infection with HIV-1 and/orHIV-2. Nonreactive results in this assay for individualswith prior exposure to HIV-1 and/or HIV-2 may be due toantigen and antibody levels that are below the limit ofdetection of this assay.The [employer] HIV Ag/Ab Combo assay result andsupplemental assay results should be interpreted inconjunction with the patient's clinical presentation,history and other laboratory results. If the results areinconsistent with clinical evidence, additional testing issuggested to confirm the result. Blood Venous blood specimen / Unknown 01/03/2023 11:31 AM EST 01/03/2023 2:37 PM EST us Luciana Zuniga [facility] LAB BLOOD ORDERABLES Final Res ult Performing Organization Address [facility] Co de Phone Number [facility] [address] [place] [address] [phone] * Lipid Panel, Standard (01/03/2023 11:31 AM EST) Triglycerides 149 <150 mg/dL [facility] Comment:Desirable Triglyceri de: less than 150 mg/dLBorderline High Triglyceride 150-199 mg/dLHigh Triglyceride: 200-499 mg/dLVery High Triglyceride: greater than or equal to 5OO mg/dL Cholesterol 172 <200 mg/dL [facility] Comment:Desirable Cholestero l: less than 200 mg/dLBorderline High Cholesterol: 200-239 mg/dLHigh Cholesterol: greater than 239 mg/dL LDL Cholesterol Calculated 90 <100 mg/dL [facility] Comment:Desirable LDL: less than 100 mg/dLNear Optimal/Above Optimal LDL: 110- 129 mg/dLBorderline High LDL: 130-159 mg/dLHigh LDL: 160-189 mg/dLVery High LDL: greater than or equal to 190 mg/dL HDL Cholesterol 53 >40 mg/dL [facility] Comment:Desirable HDL: great er than 40 mg/dL Note: This HDL assay may give artificially low results in patients with liver disease. Blood Venous blood specimen / Unknown 01/03/2023 11:31 AM EST 01/03/2023 2:37 PM EST Luciana Zuniga [facility] LAB BLOOD ORDERABLES Final Res ult Performing Organization Address [facility] Co de Phone Number [facility] [address] [place] [address] [phone] * Mammography Report 1 (08/28/2021 1:30 PM EDT) Anatomical Region Laterality Modality Breast Bilateral Mammography 08/28/2021 1:30 PM EDT Narrative 08/31/2021 4:01 PM EDT Refer to the Notes tab for result details [facility] Procedure: Mammography Report 1 Procedure Note Provider, MD Diallo - 05/09/2022 Refer to the Notes tab for result details [facility] Procedure: Mammography Report 1 Mela Marinaisidra [facility] IMG BI PROCEDURES Final Result from Last 3 Months or Most Recently Relevant to Health Maintenance Insurance [facility] C3 Care Teams Journeyman Pipe Fitter Relationship Specialty Start Date End Date Luciana Zuniga FNP [address] [place] [phone] PCP - General Family Medicine 10/12/21
--- OUTSIDE RECORDS SUMMARY | 2024-03-06 13:31 | XMS_ITS | Encounter Summary ---
Author Organization [employer] Address [address] [place] [address] Care Team Providers Care Manager Valuation Name Role Phone Luciana Zuniga Primary Care Provider [phone] Encounter Details Date Type Department Care Team (Late st Contact Info) Description 02/16/2024 Telephone [facility] [address] [place], [place] [phone] Luciana Zuniga FNP [address] [place], [place] [phone] Social History Tobacco Use Types Packs/Day Years [...] encounter Miscellaneous Notes * Telephone Encounter - Fernando Varner - 02/16/2024 1:52 PM EST Pharmacy [facility] attempted outreach call on 02/16/24 for CDTM - Diabetes appointment; however, unable to reach patient. LVM for patient to contact Fernando Varner at [phone]. documented in this encounter Plan of Treatment Upcoming Encounters Date Type Department Care Team (Late st Contact Info) Description 03/19/2024 9:00 AM EST Office Visit [facility] MED & PEDS [address] [place] [address] Luciana Zuniga FNP [address] [place] [address] documented as of this encounter Visit Diagnoses Not on filedocumented in this encounter Additional Health Concerns Assessment Noted Time PHQ-9 Depression Total Score: 0 10/02/19 23 2:07 PM EDT documented as of this encounter Care Teams Manager Valuation Relationship Specialty Start Date End Date Luciana Zuniga FNP [address] [place] [address] PCP - General Family Medicine 10/12/21 documented as of this encounter
--- OUTSIDE RECORDS SUMMARY | 2024-03-06 13:31 | XMS_ITS | Encounter Summary ---
Author Organization [employer] Address [address] [facility] [address] [place] [address] Care Team Providers Care Associate Art Director Name Role Phone Luciana Zuniga Primary Care Provider [phone] Reason for Visit * Reason Onset Date Comments Appointment Request 08/12/2022 Encounter Details Date Type Department Care Team ([facility] st Contact Info) Description 08/12/2022 Telephone [facility] [address] [place] [address] Luciana Zuniga FNP [address] [place], [place] [phone] Appointment Request Social History Tobacco Use Types Packs/Day Years Used Date Smoking Tobacco: Never Passive Smoke Exposure: Never Smokeless Tobacco: Former Alcohol Use Standard Drinks/Week Comments Never 0 (1 standard drink = 0.6 oz pur e alcohol) Comments Unknown Sex and Gender Information Value Date Recorded Sex Assigned at Female 12/14/2021 10:21 AM EDT Legal Sex Female 10:21 AM EDT Gender Identity Female 12/14/2021 10:21 AM EDT Sexual Orientation Straight 12/14/2021 10 :21 AM EDT COVID-19 Exposure Response Date Recorded In the last 10 days, have yo u been in contact with someone who was confirmed or suspected to have Coronavirus/COVID-19? No / Unsure 07/26/2022 10:47 AM EDT documented as of this encounter Miscellaneous Notes * Telephone Encounter - Getachew Silva - 08/12/2022 11:35 AM EDT Tc from pt requesting to r/s F/u appt scheduled for 08/09/22, [employer] Officer attempted to r/s follow up however zero availability, pt does not need TP appt due to meeting PCP on 07/06/22. Please contact at [phone] Senegalese documented in this encounter Plan of Treatment Upcoming Encounters Date Type Department Care Team ([facility] st Contact Info) Description 03/19/2024 9:00 AM EST Office Visit [facility] MED & PEDS [address] [place] [address] Luciana Zuniga FNP [address] [place] [address] documented as of this encounter Visit Diagnoses Not on filedocumented in this encounter Additional Health Concerns Assessment Noted Time PHQ-9 Depression Total Score: 12 023 10:06 AM EDT documented as of this encounter Care Teams Associate Art Director Relationship Specialty Start Date End Date Luciana Zuniga FNP [address] [place] [address] PCP - General Family Medicine 10/12/21 documented as of this encounter
== END 2024-03-06 12:34 | disposition home or self-care (01) ==
LOC: HO.HGI 11:42
PROVIDERS: PCP Registered Nurse; Visit Provider Nurse Practitioner Family
DX: K58.1 Irritable bowel syndrome with constipation (principal); R14.0 Abdominal distension (gaseous); K59.04 Chronic idiopathic constipation; K21.9 Gastro-esophageal reflux disease without esophagitis; R10.32 Left lower quadrant pain; A04.8 Other specified bacterial intestinal infections; E11.65 Type 2 diabetes mellitus with hyperglycemia
CPT/HCPCS: 99214

== ENCOUNTER → 2024-03-06 11:42 | Outpatient (BNVA) | payer MEDICAID, SELFPAY | PROVIDERS: PCP Registered Nurse; Visit Provider Nurse Practitioner Family | DX: K59.04 Chronic idiopathic constipation (principal); K58.1 Irritable bowel syndrome with constipation; K21.9 Gastro-esophageal reflux disease without esophagitis; E11.65 Type 2 diabetes mellitus with hyperglycemia; R14.0 Abdominal distension (gaseous); R10.32 Left lower quadrant pain; A04.8 Other specified bacterial intestinal infections | CPT/HCPCS: 99212 ==

== ENCOUNTER → 2024-03-15 15:07 | Outpatient (BNVA) | payer MEDICAID, SELFPAY | PROVIDERS: PCP Registered Nurse; Visit Provider Nurse Practitioner Adult Health | DX: E11.65 Type 2 diabetes mellitus with hyperglycemia (principal) | CPT/HCPCS: 82947; 99212 ==

== ENCOUNTER 2024-06-12 15:22 | Outpatient (AMB) | payer MEDICAID, SELFPAY ==
--- NOTE | 2024-06-12 14:42 | MHC.OFFVIS ---
Vital Signs 06/12/24 15:25 Height 5 ft 5 in Weight 222 lb 14.197 oz BMI 37.1 BP 108/64 Blood Pressure Location Lt brachial Position Sitting Pulse 65 Pulse Source Pulse Oximeter Pulse Oximetry (%) 98 Oxygen Delivery Method Room Air Intake Visit Reasons: T2DM Intake Note: Patient presents today for a follow-up on Type 2 Diabetes Mellitus: Last Diabetic eye exam was on: Over 5 years ago Last Podiatry exam was on: Patient does not see a Interactive Designer Most recent HbA1c: 10.6% Random Glucose- 269 mg/dL, Today Sr. Media Manager Required: Yes Sr. Media Manager Language: Neurological Physiotherapist Services: Sr. Media Manager Present Sr. Media Manager Name: Page [phone] Information Interpreted: non-clinical & clinical Accompanied by: Daughter Allergies Penicillins [PENICILLINS] Allergy (Unknown, Verified 06/12/24 15:30) UNKNOWN HIGH BLOOD PRESSURE MED Allergy (Unknown, Uncoded 06/12/24 15:30) ASTHMA HPI Comments Details: 64 YO female who is seen in f/u for T2DM. She was seen as an initial consult 03/15/2024 at which time insulin was changed from Lantus and 70/30 insulin to Tresiba plus Humalog. HgbA1C 10.6% 06/12/24. Hgb A1C 12.2% 01/06/24. She was started on a freestyle Lorenza 3+ but this fell off early. She has purchased an over patch to put on the Lorenza. Initially diagnosed with T2DM at age 29. Was initially started on treatment with metformin and insulin Current regimen: Tresiba 70 units Humalog 18 units for breakfast 18 units lunch 18 units for supper metformin ER 1000mg daily Trulicity 1.5 weekly She is using a glucometer. Her average is 225 A.m. readings 160-180, 1 reading 122 Later in the day to 50s Reports low sugars: Takes a consistent hs snack Treats lows with glucose tablets/juice Family history of T2DM in mother brother and sister Has eyes checked yearly, last eye exam more than 4 years no retinopathy needs new provider Has neuropathy, C/o numbness, tingling, no cramping or pain last foot exam: declined today doesn't see foot MD Has nephropathy, on ARB. 01/03/2023 eGFR>60 microalbumin 35 Has HLD, on statin LDL 90 as measured on 11/23 Denies CAD Diet: breakfast: eggs boiled toast or crackers lunch: white rice beans or steak, chicken small portions supper smaller meal exercise: walking No recent DM education [facility] Medical History (Updated 03/06/24 @ 20:30 by Roxanna Cordoba [facility]) Uncontrolled diabetes mellitus with hyperglycemia IBS (irritable bowel syndrome) H. pylori infection High cholesterol Hypertension Diabetes Asthma Surgical History History of cholecystectomy History of tubal ligation History of esophagogastroduodenoscopy (EGD) (~05/2010) Hx of colonoscopy (~05/2010) Family History Father Heart disease Mother Cancer Diabetes HTN (hypertension) Sister Diabetes Brother Heart disease Maternal Grandmother Cancer Paternal Grandmother Cancer Social History Alcohol intake: current Alcohol intake frequency: does not drink Physical Exam Vital Signs: Last Vital Signs Pulse 65 06/12/24 15:25 BP 108/64 06/12/24 15:25 Pulse Ox 98 06/12/24 15:25 Oxygen Delivery Method Room Air 06/12/24 15:25 BMI result Body Mass Index 37.1 Results AMB Hemoglobin A1c AMB Hemoglobin A1c 10.6 % Last Edit by USHA Carrillo on 06/12/24 15:46 Results Reviewed Results Reviewed: Laboratory Last Values Glucose (Clinic) 269 mg/dL (60-115) H 06/12/24 15:33 Hgb A1c (Clinic) 10.6 % (4.0-6.0) H 06/12/24 15:40 Assessment & Plan Assessment & Plan (1) Uncontrolled diabetes mellitus with hyperglycemia: Code(s): E11.65 - Type 2 diabetes mellitus with hyperglycemia Category: Medical Qualifiers: Diabetes mellitus type: type 2 Qualified Code(s): E11.65 - Type 2 diabetes mellitus with hyperglycemia Plan: 64-year-old type 2 diabetic Plan 64-year-old obese type 2 diabetic with improving glucose numbers but A1c still grossly elevated. She was retrained on placement of the sensor to facilitate keeping the sensor on for the full 15 days. She will use an over patch. She has been referred to Podiatry and Ophthalmology New dosing: Tresiba 70 units Humalog 22 units tid metformin 1000mg bid Trulicity 1.5mg weekly (unable to increase secondary to constipation which is now under better control) The patient had an opportunity to ask questions regarding treatment plan. The patient expressed understanding and agreement with the above treatment plan. The patient is aware they should contact our office by phone for worsening glucose readings or for any low blood sugars which may warrant a change in diabetes medication. Compliance is encouraged with medications and any followup testing/consults which may have been ordered. . Orders: Orders Lipid Panel Today E11.65 - Type 2 diabetes mellitus with hyperglycemia Complete Blood Count Auto Diff Today E11.65 - Type 2 diabetes mellitus with hyperglycemia Basic Metabolic Panel Fasting Today E11.65 - Type 2 diabetes mellitus with hyperglycemia Microalbumin, Random (w Creat) Today E11.65 - Type 2 diabetes mellitus with hyperglycemia Creatinine Urine Today E11.65 - Type 2 diabetes mellitus with hyperglycemia AMB Hemoglobin A1c Today E11.65 - Type 2 diabetes mellitus with hyperglycemia, Z13.9 - Encounter for screening, unspecified Patient Instructions: The patient was counseled to achieve a target A1C of 7% (154 avg). Fasting blood sugars should be 90-130 in the morning and less than 180 two hours after meals. Reviewed the relationship between poor diabetic control and the development of complications. A1C tracking sheet reviewed Carry a sugar source Coding Level of Care Code Est Pt Level 4 (24901) Complex EM visit Add On G2211 Diagnoses Uncontrolled type 2 diabetes mellitus with hyperglycemia E11.65 Diabetes mellitus type: type 2 Time Spent (min) 30 Comment Time spent reviewing labs/provider notes, face to face, chart doc
[2024-06-12 15:25] VITALS: BP 108/64; PULSE 65; O2SAT 98; BMI 37.1
[2024-06-12 15:40] LABS: Glucose, Whole Blood 269 mg/dL (60-115)
== END 2024-06-12 15:54 | disposition home or self-care (01) ==
LOC: HO.ENCR 15:23
PROVIDERS: PCP Registered Nurse; Visit Provider Nurse Practitioner Adult Health
DX: Z13.9 Encounter for screening, unspecified (principal); E11.65 Type 2 diabetes mellitus with hyperglycemia
CPT/HCPCS: 99214

== ENCOUNTER → 2024-06-12 15:22 | Outpatient (BNVA) | payer MEDICAID, SELFPAY | PROVIDERS: PCP Registered Nurse; Visit Provider Nurse Practitioner Adult Health | DX: E11.65 Type 2 diabetes mellitus with hyperglycemia (principal); Z79.4 Long term (current) use of insulin; Z79.85 Long-term (current) use of injectable non-insulin antidiabetic drugs; Z79.84 Long term (current) use of oral hypoglycemic drugs | CPT/HCPCS: 82947; 83036; 99212 ==

== ENCOUNTER 2024-06-18 08:59 | Outpatient (REF) | payer MEDICAID, SELFPAY ==
--- OUTSIDE RECORDS SUMMARY | 2024-06-18 09:31 | XMS_ITS | Encounter Summary ---
Author Organization [employer] Address [address] [facility] [address] [place] [address] Care Team Providers Care Lime Spreader Name Role Phone Luciana Zuniga Primary Care Provider [phone] Encounter Details Date Type Department Care Team (Late st Contact Info) Description 06/08/2023 Orders Only [facility] [address] [place], [place] [phone] Luciana Zuniga FNP [address] [place], [place] [phone] Social History Tobacco Use Types Packs/Day Years [...] Care Team (Late st Contact Info) Description 07/06/2024 10:00 AM EDT Office Visit [facility] [address] [place] [address] Luciana Zuniga, LASTEX OPERATOR [address] [place] [address] documented as of this encounter Procedures Procedure Name Priority Date/Time Associated Diagnosis Comments GLUCOSE, WHOLE BLOOD Routine 03/15/2024 3:16 PM EST HELICOBACTER PYLORI, UREA BREATH TEST Routine 01/06/2024 [...] EST documented in this encounter Results * (ABNORMAL) Glucose, Whole Blood (03/15/2024 3:16 PM EST) Glucose, Whole Blood 296(H) 60 - 115 mg/dL [facility] Comment:METER #: [id number] 5Testing performed in the Endocrinology Department [address] , [address], [facility]. 03/15/2024 3:16 PM EST 03/15/2024 3:22 PM EST Generic External Data Provider LAB BLOOD ORDERAB LES Final Result Performing Organization Address [facility] Co de Phone Number [facility] [address] [place] [phone] * Helicobacter pylori, Urea Breath Test (01/06/2024 2:08 PM EST) Pathologist [facility] H. pylori Breath Test Positive Negative [facility] Comment:Antimicrobials, prot on pump inhibitors and bismuthpreparations are known to suppress H. pylori. Ingestingthese medications within two weeks prior to performing thebreath test may produce negative test results. A positiveresult is still clinically valid. 01/06/2024 2:08 PM EST 01/09/2024 3:36 PM EST Generic External Data Provider LAB BLOOD ORDERAB LES Final Result Performing Organization Address [facility] Phone Number [facility] [address] [place] [phone] * (ABNORMAL) VITAMIN D 25-OH (D2 AND D3) (01/06/2024 11:37 AM EST) Vitamin D, 25-OH, D2 <4 ng/mL [facility] Comment:This test was develo ped and its analytical performancecharacteristics have been determined by [employer] [place], [place]. It hasnot been cleared or approved by the U.S. Food and DrugAdministration. This assay has been validated pursuantto the CLIA regulations and is used for clinicalpurposes.THIS TEST WAS PERFORMED AT:[employer] [id number] [place] [id number] SURESH MD,PHD Vitamin D, 25-OH, D3 21 ng/mL [facility] Comment:This test was nitish altamirano and its analytical performancecharacteristics have been determined by [facility] [place], [place]. It hasnot been cleared or approved by the U.S. Food and DrugAdministration. This assay has been validated pursuantto the CLIA regulations and is used for clinicalpurposes. Vitamin D, 25-OH, Total 21(A) 30 - 100 ng/mL [facility] Comment:Vitamin D, 25-Hydrox y reports [...] = 30 ng/mL.For additional information, please refer tohttp://education.Voxeet/faq/FJR209(This link is being provided for informational/educational purposes only.) 01/06/2024 11:3 7 AM EST 01/06/2024 11:37 AM EST us Generic External Data Provider LAB BLOOD ORDERAB LES Final Result [facility] [address] [place] [phone] * Tissue Transglutaminase Antibody, IgA (01/06/2024 11:37 AM EST) Transglutaminase IgA <1.0 U/mL [facility] Comment:Value Interpretation ----- <15.0 Antibody not detected> or = 15.0 Antibody detectedTHIS TEST WAS PERFORMED AT:[facility] [place] [id number] RIVAS MD 01/06/2024 11:3 7 AM EST 01/06/2024 11:37 AM EST us Generic External Data Provider LAB BLOOD ORDERAB LES Final Result Performing Organization Address City/[facility]/ZIP Co de Phone Number [facility] [address] [place] [phone] * Vitamin B12 (Cobalamin) and Folate Panel, Serum (01/06/2024 11:37 AM EST) Vitamin B12 432 200 - 900 pg/mL [facility] Comment:NORMAL 200-900 PG/ML INDETERMINATE 160-199 PG/ML DEFICIENT < 160 PG/ML Folate 11.5 > or = 4.0 ng/mL [facility] Comment:Reference Values:> o r = 4.0 ng/mL< 4.0 ng/mL suggests folate deficiency Methotrexate, aminopterin and folinic acid(leucovorin) are chemotherapeutic agents whose molecularstructures are similar to folate; therefore, the Architectfolate assay cannot be used for patients using these drugs. 01/06/2024 11:3 7 AM EST 01/06/2024 11:37 AM EST us Generic External Data Provider LAB BLOOD ORDERAB LES Final Result Performing Organization Address [facility] Co de Phone Number [facility] [address] [place] [phone] * Lipase (01/06/2024 11:37 AM EST) Lipase 21 8 - 78 U/L [facility] 01/06/2024 11:3 7 AM EST 01/06/2024 11:37 AM EST us Generic External Data Provider LAB BLOOD ORDERAB LES Final Result Performing Organization Address City/[facility]/ZIP Co de Phone Number [facility] [address] [place] [phone] * Hepatic Function Panel (01/06/2024 11:37 AM EST) Bilirubin, Total 0.2 0.0 - 1.0 mg/dL [facility] Bilirubin, Direct <0.2 0.0 - 0.5 mg/dL [facility] Aspartate Amino Transferase 18 5 - 31 U/L [facility] Alanine Aminotransferase 18 0 - 31 U/L [facility] Total Protein 7.2 6.5 - 8.0 g/dL [facility] Albumin Level 4.1 3.5 - 5.0 g/dL [facility] Alkaline Phosphatase 83 39 - 117 U/L [facility] 01/06/2024 11:3 7 AM EST 01/06/2024 11:37 AM EST Generic External Data Provider LAB BLOOD ORDERAB LES Final Result [facility] [address] [place] [address] [phone] * (ABNORMAL) Hemoglobin A1c (01/06/2024 11:37 AM EST) Hemoglobin A1c 12.2(H) <6.0 % [facility] Comment:Hemoglobin A1C Refer ence Range Adults: 4.8 - 6.0 % Non diabetic: < 6.0 % Goal: < 7.0 %Additional Action Suggested: > 8.0 %Note: Hemoglobin A1c results are invalid for patients with abnormal amounts of HbF. Blood transfusions may impact the HbA1c concentration in the patient sample. Estimated Average Glucose 303 mg/dL [facility] Comment:eAG = Estimated ave rage glucose which is %A1C expressed asaverage glucose, using the formula of the W3J-LvrzdgcAauvyqw Glucose study (ADAG), Diabetes Care, Vol.31,#8,Sep. 2007 01/06/2024 11:3 7 AM EST 01/06/2024 11:37 AM EST us Generic External Data Provider LAB BLOOD ORDERAB LES Final Result [facility] [address] [place] [phone] documented in this encounter Visit Diagnoses Not on filedocumented in this encounter Additional Health Concerns Assessment Noted Time PHQ-9 Depression Total Score: 0 10/02/19 23 2:07 PM EDT documented as of this encounter Care Teams Lime Spreader Relationship Specialty Start Date End Date Luciana Zuniga FNP [address] [place] [address] PCP - General Family Medicine 10/12/21 documented as of this encounter
--- OUTSIDE RECORDS SUMMARY | 2024-06-18 09:31 | XMS_ITS | Clinical Summary ---
Author Organization [facility] Address [address] [place] [address] Care Team Providers Care Intelligence Chief Name Role Phone Liudmilamishel Luciana NETO Primary Care Provider [phone] Allergies No known active allergies Medications Blood Glucose Monitoring Suppl (FreeStyle Seville Lite) w/Device kit TEST BLOOD SUGAR 4 TIMES A DAY 08/15/19 22 Active Dexilant [address] capsule Take 1 capsule by mouth in the morning. 03/23/19 23 Active Linzess 145 MCG capsule Take 145 mcg by mouth in the morning. 04/27/19 23 Active valACYclovir (Valtrex) 1 g tablet TAKE 1 TABLET BY MOUTH EVERY 8 HOURS FOR 7 DAYS 10/07/19 22 Active senna (Senokot) 8.6 MG tablet Take 2 tablets (17.2 mg) by mouth if needed at bedtime for constipation. 60 tablet 07/07/19 23 Active TRUEplus Lancets 33G misc TEST BLOOD SUGAR FIVE TIMES DAILY 200 each 10/02/19 23 Active glucose blood (FREESTYLE LITE) test strip TEST BLOOD SUGAR FIVE TIMES DAILY 150 each 10/02/19 23 Active Blood Pressure Monitor kitIndications:Ess ential hypertension Check blood pressure twice a week. Dx hypertension 1 kit 01/04/20 23 Active Mometasone Furoate (Asmanex HFA) 100 MCG/ACT aerosol INHALE 2 PUFFS BY MOUTH TWICE DAILY. RINSE MOUTH AFTER USING. 13 g 3 03/04/19 24 Active insulin lispro protamine-insulin lispro (HumaLOG Mix 75-25) (75-25) 100 UNIT/ML injectionIndicatio ns:Type 2 diabetes mellitus treated with insulin (CMS/[facility]) INJECT 40 UNITS SUBCUTANEOUSLY EVERY DAY IN THE MORNING AND INJECT 45 UNITS SUBCUTANEOUSLY EVERY DAY IN THE EVENING 30 mL 5 08/13/19 24 Active gabapentin (Neurontin) 100 MG capsuleIndications :Fibromyalgia TAKE 1 CAPSULE BY MOUTH THREE TIMES DAILY 90 capsule 11 09/06/19 24 Active loratadine (Claritin) 10 MG tabletIndications: Seasonal allergies TAKE 1 TABLET BY MOUTH EVERY MORNING NEEDED FOR ALLERGIES 90 tablet 3 09/09/19 24 Active FREESTYLE LITE test stripIndications:T ype 2 diabetes mellitus without complication, with long-term current use of insulin (CMS/[facility]) Use to test blood sugar 3 times daily 100 each 12 10/05/19 24 025 Active Lancets miscIndications:Ty pe 2 diabetes mellitus without complication, with long-term current use of insulin (CMS/[facility]) Use to test blood sugar 3 times daily 100 each 10/05/19 24 Active Alcohol Swabs 70 % padsIndications:Ty pe 2 diabetes mellitus without complication, with long-term current use of insulin (CMS/[facility]) Use to test blood sugar 3 times daily 100 each 10/05/19 24 Active Blood Glucose Monitoring Suppl (FreeStyle Seville Lite) w/Device kitIndications:Typ e 2 diabetes mellitus without complication, with long-term current use of insulin (CMS/[facility]) Use to test blood sugar 3 times daily 1 kit 10/05/19 24 Active albuterol (Ventolin HFA) 108 (90 Base) MCG/ACT inhalerIndications :Moderate persistent asthma without complication INHALE 2 PUFFS EVERY 4 to 6 HOURS NEEDED FOR WHEEZING OR SHORTNESS OF BREATH 18 g 11 10/29/19 24 Active albuterol (2.5 MG/3ML) 0.083% nebulizer solutionIndication s:Moderate persistent asthma without complication INHALE 1 AMPULE USING A NEBULIZER EVERY 4 to 6 HOURS NEEDED FOR WHEEZING OR SHORTNESS OF BREATH 90 mL 10/29/19 24 Active montelukast (Singulair) 10 MG tablet TAKE 1 TABLET BY MOUTH EVERY EVENING 90 tablet 3 11/02/19 24 Active Continuous Glucose Sensor (FreeStyle Lorenza 2 Sensor) miscIndications:Ty pe 2 diabetes mellitus without complication, with long-term current use of insulin (CMS/[facility]) TEST BLOOD SUGAR. CHANGE EVERY 14 DAYS 2 each 11/11/19 24 Active Continuous Glucose Powerhouse Operator (FreeStyle Lorenza 2 [place]) deviceIndications: Type 2 diabetes mellitus without complication, with long-term current use of insulin ([facility]) Use in combination with sensor to monitor blood sugar levels. 1 each 11/11/19 24 Active Acetaminophen Extra Strength 500 MG tabletIndications: Polyarthralgia TAKE 1 TABLET BY MOUTH EVERY 4 TO 6 HOURS NEEDED FOR PAIN. NO MORE THAN 8 TABLETS PER 24 HOURS FOR PAIN 100 tablet 5 12/14/19 24 Active valsartan (Diovan) 80 MG tablet TAKE 1 TABLET BY MOUTH EVERY MORNING 90 tablet 3 02/09/20 24 Active Pentips Generic Pen [place] 32G X 4 MM misc USE WITH INSULIN 100 each 4 02/26/19 25 Active Lantus SoloStar 100 UNIT/ML pen INJECT 80 UNITS SUBCUTANEOUSLY AT BEDTIME 45 mL 1 03/21/19 25 Active metFORMIN XR (Glucophage-XR) 500 MG 24 hr tablet TAKE 2 TABLETS BY MOUTH ONCE DAILY IN THE MORNING 180 tablet 3 04/26/19 25 Active rosuvastatin (Crestor) 40 MG tabletIndications: Mixed hyperlipidemia TAKE 1 TABLET BY MOUTH EVERY DAY AT BEDTIME 90 tablet 3 05/05/19 25 Active fenofibrate (Triglide) 160 MG tabletIndications: Mixed hyperlipidemia TAKE 1 TABLET BY MOUTH EVERY MORNING 90 tablet 3 05/05/19 25 Active Trulicity 1.5 MG/0.5ML solution auto-injectorIndic ations:Type 2 diabetes mellitus without complication, unspecified whether long term care pharmacist insulin use ([facility]) INJECT ONE PEN (=1.5MG) SUBCUTANEOUSLY ONCE A WEEK DIRECTED 2 mL 3 05/16/19 25 Active Active Problems Problem Noted Date Diagnosed Date [...] 05/2010, 10 yr repeat. Upcoming appt with [facility] -Mammogram: [facility] 14 August 2021 -Bone density: ordered April 2023 Assessment & Plan (01/09/2023 6:01 PM EST): -Pap: last 2011. Pt previously declined repeat pap d/t discomfort with speculum exams. Discussed self insertion of speculum vs blind HPV swab. Pt will consider and may discuss at subsequent appt -Colonoscopy: 05/2010, 10 yr repeat. Upcoming appt with [facility] -Mammogram: [facility] 14 August 2021 Assessment & Plan (10/03/2022 7:36 AM EDT): -Pap: last 2011. Pt previously declined repeat pap d/t discomfort with speculum exams. Discussed self insertion of speculum vs blind HPV swab. Pt will consider and may discuss at subsequent appt -Colonoscopy: 05/2010, 10 yr repeat. Upcoming appt with [facility] -Mammogram: [facility] 14 August 2021 Assessment & Plan (07/09/2022 8:05 AM EDT): -Pap: last 2011. Pt previously declined repeat pap d/t discomfort with speculum exams. Discussed self insertion of speculum vs blind HPV swab. Pt will consider and may discuss at subsequent appt -Colonoscopy: 05/2010, 10 yr repeat. Upcoming appt with [facility] -Mammogram: [facility] 14 August 2021 Diabetic [...] 7:35 AM EDT): ?? [facility] [...] 2022 WNL Eye exam: reports previous at [facility], referral to [facility] placed 07/09/22 PNA: [id number] Dec [...] insulin she is using. - Referral to [facility] team - ED precautions reviewed Assessment [...] HGBA1C 9.7 (A) 07/06/2022 -BG in office [facility], improved to 400s s/p 10 units lispro [...] Encounters Date Type Department Care Team Description 06/12/2024 Orders Only GENERIC EXTERNAL DATA DEPARTMENT Provider, Generic External Data 05/14/2024 Refill [facility] [address] [place] [address] Luciana Zuniga FNP Type 2 diabetes mellitus without complication, unspecified whether residential insulin use ([facility]) 05/03/2024 Refill [facility] [address] [place] [address] Luciana Zuniga FNP Mixed hyperlipidemia 04/27/2024 Population Health Risk Score [facility] () Department [address] [phone] Provider, Population Health Generic 04/24/2024 Telephone [facility] [address] [place], [place] [phone] Luciana Zuniga FNP Appointment Request 04/22/2024 Refill [facility] [address] [place], [place] [phone] Luciana Zuniga FNP from Last 3 Months [...] Upcoming Encounters Date Type Department Care Team ([facility] st Contact Info) Description 07/06/2024 10:00 AM EDT Office Visit [facility] [address] [place] [address] Luciana Zuniga, SOCIAL INSURANCE ADMINISTRATOR [address] [place] [address] Health Maintenance Due Date Last Done Comments [...] Additional history exists Influenza Vaccine (#1) 2023 3, 01/01/2016, 10/20/2012 Diabetes: Urine Protein Screening 01/04/2024 01/03/2023, 10/01/2021, 01/21/2021 Lipid Panel 01/04/2024 01/03/2023, 09/14, 01/21/2021, Additional history exists Diabetes: Hemoglobin A1C 04/07/20242 024, 10/20/2023, 05/13/2023, Additional history exists SDOH Screening 05/04/2024 05/05/2023 Tobacco Screening 11/10/2024 11/11/2023 DTaP/Tdap/Td Vaccines (4 - Td or Tdap) 10/03/2031 10/02/2021, 11/20/2013, 09/24/2011 HIV Screening Completed 01/03/2023 Hepatitis C Screening Completed 01/03/2023 Pneumococcal Vaccine: 50+ Years Completed 01/03/2023, 03/30/2010 HIB Vaccines Aged Out [...] Associated Diagnosis Comments GLUCOSE, WHOLE BLOOD Routine 06/12/2024 3:33 PM EDT HEMOGLOBIN A1C Routine 01/06/2024 11:37 AM EST [...] Recently Relevant to Health Maintenance Results * (ABNORMAL) Glucose, Whole Blood (06/12/2024 3:33 PM EDT) Glucose, Whole Blood 269(H) 60 - 115 mg/dL [facility] Comment:METER #: [id number] 5Testing performed in the Endocrinology Department [address] , [address], [facility]. 06/12/2024 3:33 PM EDT 06/12/2024 3:39 PM EDT Generic External Data Provider LAB BLOOD ORDERAB LES Final Result Performing Organization Address City[facility]/ZIP Co de Phone Number [facility] [address] [place] [address] [phone] * (ABNORMAL) Hemoglobin A1c (01/06/2024 11:37 AM EST) Hemoglobin A1c 12.2(H) <6.0 % [facility] Comment:Hemoglobin A1C Refer ence Range Adults: 4.8 - 6.0 % Non diabetic: < 6.0 % Goal: < 7.0 %Additional Action Suggested: > 8.0 %Note: Hemoglobin A1c results are invalid for patients with abnormal amounts of HbF. Blood transfusions may impact the HbA1c concentration in the patient sample. Estimated Average Glucose 303 mg/dL [facility] Comment:eAG = Estimated ave rage glucose which is %A1C expressed asaverage glucose, using the formula of the W8N-IlrexomHnjhqsh Glucose study (ADAG), Diabetes Care, Vol.31,#8,Sep. 2007 01/06/2024 11:3 7 AM EST 01/06/2024 11:37 AM EST us Generic External Data Provider LAB BLOOD ORDERAB LES Final Result Performing Organization Address [facility]/ZIP Co de Phone Number [facility] [address] [place] [address] [phone] * Albumin, Random Urine W/Creatinine (01/03/2023 11:40 AM EST) Creatinine, Urine 146.72 mg/dL [facility] Microalbumin Urine 35.0 mg/L H [facility] Microalbum Creatinine Ratio Ur 23.8 <30 ug/mg cr [facility] Comment:Albumin/Creatinine R atio Reference Ranges: Normal: < 30 ug/mg creatinine Microalbuminuria: 30 - 300 ug/mg creatinineClinical Albuminuria: > 300 ug/mg creatinine Urine 01/03/2023 11:4 0 AM EST 01/03/2023 2:52 PM EST Luciana Zuniga [facility] URINE ORDERABLES Final Res ult Performing Organization Address [facility]/ZIP Co de Phone Number [facility] [address] [place] [phone] * Hepatitis C Viral RNA, Quantitative, Real-Time PCR (01/03/2023 11:31 AM EST) Hepatitis C Viral Load <15 NOT DETECTED NOT DETECTED IU/mL [facility] HCV Log PCR <1.18 NOT DETECTED NOT DETECTED Log IU/mL [facility] Comment:This test was perfor med using Real-Time Polymerase ChainReaction.Reportable Range: 15 IU/mL to 100,000,000 IU/mL(1.18 Log IU/mL to 8.00 Log IU/mL).The analytical performance characteristics of thisassay have been determined by [facility].The modifications have not been cleared or approved bythe FDA. This assay has been validated pursuant to theCLIA regulations and is used for clinical purposes.For more information on this test, go to:http://education.[employer]/faq/SQQ46r1(This link is being provided for informational/educational purposes only.)THIS TEST WAS PERFORMED AT:[employer] [place] [phone] RIVAS MD Blood 01/03/2023 11:3 1 AM EST 01/03/2023 2:37 PM EST Luciana Zuniga [facility] BLOOD ORDERABLES Final Res ult Performing Organization Address [facility]/ZIP Co de Phone Number [facility] [address] [place] [address] [phone] * HIV-1/2 Antigen and Antibodies, Fourth Generation, with Reflexes (01/03/2023 11:31 AM EST) HIV AB/AG Nonreactive Nonreactive [facility] Comment:HIV-1 p24 Ag and/or HIV-1/HIV-2 Ab not detected.A test result that is nonreactive does not exclude thepossibility of exposure to or infection with HIV-1 and/orHIV-2. Nonreactive results in this assay for individualswith prior exposure to HIV-1 and/or HIV-2 may be due toantigen and antibody levels that are below the limit ofdetection of this assay.The [employer] HIV Ag/Ab Combo assay result andsupplemental assay results should be interpreted inconjunction with the patient's clinical presentation,history and other laboratory results. If the results areinconsistent with clinical evidence, additional testing issuggested to confirm the result. Blood Venous blood specimen / Unknown 01/03/2023 11:31 AM EST 01/03/2023 2:37 PM EST us Luciana Zuniga [facility] BLOOD ORDERABLES Final Res ult [facility] [address] [place] [phone] * Lipid Panel, Standard (01/03/2023 11:31 AM EST) Triglycerides 149 <150 mg/dL [facility] Comment:Desirable Triglyceri de: less than 150 mg/dLBorderline High Triglyceride 150-199 mg/dLHigh Triglyceride: 200-499 mg/dLVery High Triglyceride: greater than or equal to 5OO mg/dL Cholesterol 172 <200 mg/dL [facility] Comment:Desirable Cholestero l: less than 200 mg/dLBorderline High Cholesterol: 200-239 mg/dLHigh Cholesterol: greater than 239 mg/dL LDL Cholesterol Calculated 90 <100 mg/dL [facility] Comment:Desirable LDL: less than 100 mg/dLNear Optimal/Above Optimal LDL: 110- 129 mg/dLBorderline High LDL: 130-159 mg/dLHigh LDL: 160-189 mg/dLVery High LDL: greater than or equal to 190 mg/dL HDL Cholesterol 53 >40 mg/dL [facility] Comment:Desirable HDL: great er than 40 mg/dL Note: This HDL assay may give artificially low results in patients with liver disease. Blood Venous blood specimen / Unknown 01/03/2023 11:31 AM EST 01/03/2023 2:37 PM EST us Luciana Zuniga SOCIAL INSURANCE ADMINISTRATOR LAB BLOOD ORDERABLES Final Res ult [facility] [address] [place] [phone] * Mammography Report 1 (08/28/2021 1:30 PM EDT) Anatomical Region Laterality Modality Breast Bilateral Mammography 08/28/2021 1:30 PM EDT Narrative 08/31/2021 4:01 PM EDT Refer to the Notes tab for result details [facility] Procedure: Mammography Report 1 Procedure Note Provider, MD Diallo - 05/09/2022 Refer to the Notes tab for result details [facility] Procedure: Mammography Report 1 Mela Ortega HAND WRAPPER OPERATOR IMG BI PROCEDURES Final Result from Last 3 Months or Most Recently Relevant to Health Maintenance Insurance C3 Care Teams Intelligence Chief Relationship Specialty Start Date End Date Luciana Zuniga FNP [address] [place] [phone] PCP - General Family Medicine 10/12/21
[2024-06-18 11:21] LABS: MANUAL DIFF FLAG NO
[2024-06-18 11:24] LABS: Basophils Absolute Auto 0.1 X10*3/uL (0.0-0.2); Basophils Percent Auto 0.8 % (0-2); Eosinophils Absolute Auto 0.2 X10*3/uL (0.0-0.4); Eosinophils Percent Auto 2.5 % (0-4); Hematocrit 37.6 % (37.0-47.0); Hemoglobin 12.2 g/dl (12.0-16.0); Imm Gran Abs Auto 0.04 X10*3/uL (0.00-0.03); Imm Gran Pct Auto 0.5 % (0.0-0.4); Lymphocytes Absolute Auto 3.9 X10*3/uL (1.2-4.9); Lymphocytes Percent Auto 49.6 % (20-40); Mean Corpuscular HGB Conc 32.4 g/dl (31.0-35.0); Mean Corpuscular Hemoglobin 28.6 pg (27.0-33.0); Mean Corpuscular Volume 88.1 fL (80.0-98.0); Monocytes Absolute Auto 0.4 X10*3/uL (0.1-1.2); Neutrophils Absolute Auto 3.3 x10*3/uL (2.0-8.3); Neutrophils Percent Auto 41.6 % (45-73); Platelet Count 225 X10*3/uL (160-400); Red Blood Count 4.27 X10*6/uL (4.20-5.50); Red Cell Distribution Width 12.8 % (11.0-16.0)
[2024-06-18 11:40] LABS: Estimated Average Glucose 263 mg/dL; Hemoglobin A1C 303.1345 umol/L; Hemoglobin A1c % 10.8 % (<6.0); Total Hemoglobin (HGBA1C) 3222.2904 umol/L
[2024-06-18 12:12] LABS: Alanine Aminotransferase 13 U/L (0-31); Albumin Level 4.1 g/dL (3.5-5.0); Alkaline Phosphatase 65 U/L (39-117); Anion Gap 9 (12-20); Aspartate Amino Transferase 16 U/L (5-31); Bilirubin Direct 0.1 mg/dL (0.0-0.5); Bilirubin Total 0.3 mg/dL (0.0-1.0); Blood Urea Nitrogen 21 mg/dL (9-16); Calcium 9.4 mg/dL (8.4-10.2); Carbon Dioxide 31 mmol/L (22-29); Chloride 101 mmol/L (96-108); Cholesterol 162 mg/dL (<200); Estimated Glomerular Filt Rate 57; Glucose Fasting 283 mg/dL (60-99); Potassium 4.1 mmol/L (3.3-5.1); Sodium 137 mmol/L (135-145); Triglycerides 140 mg/dL (<150)
[2024-06-18 12:42] LABS: HDL Cholesterol 52 mg/dL (>40); LDL Cholesterol Calculated 82 mg/dL (<100)
[2024-06-18 13:07] LABS: Creatinine Urine 183.22 mg/dL; Microalbum/Creatinine Ratio Ur 46.9 ug/mg cr (<30)
== END 2024-06-18 09:00 | disposition home or self-care (01) ==
LOC: HO.HHCL 08:59
PROVIDERS: Nurse Practitioner Family; Visit Provider Nurse Practitioner Adult Health
DX: I25.10 Atherosclerotic heart disease of native coronary artery without angina pectoris (principal); R74.01 Elevation of levels of liver transaminase levels; E11.65 Type 2 diabetes mellitus with hyperglycemia; Z83.3 Family history of diabetes mellitus
CPT/HCPCS: 36415; 80048; 80061; 80076; 82043; 82570; 83036; 85025

== ENCOUNTER 2024-06-26 10:28 | Outpatient (AMB) | payer MEDICAID, SELFPAY ==
--- NOTE | 2024-06-26 10:35 | A.OFFVIS_ITS ---
Vital Signs 06/26/24 10:44 Height 5 ft 5 in Weight 222 lb BMI 36.9 Pulse 66 Pulse Source Pulse Oximeter Pulse Oximetry (%) 96 Oxygen Delivery Method Room Air Intake Visit Reasons: Follow up GERD, HP, discuss colo Intake Note: ESTABLISHED PATIENT for GERD mgmt. FUV after H Pylori Tx. Discuss colo/egd. Chief Complaint; Pt denies any GI sx or concerns at this time. Pt finished abx and is doing well since then. Linzess adjustment has been helping. Litigation Manager Required: Yes Litigation Manager Services: Litigation Manager Present Litigation Manager Name: [id number] Accompanied by: Family/Other Allergies Penicillins [PENICILLINS] Allergy (Unknown, Verified 06/26/24 10:46) UNKNOWN HIGH BLOOD PRESSURE MED Allergy (Unknown, Uncoded 06/26/24 10:46) ASTHMA HPI HPI Follow up GERD, HP, discuss colo: Details: LAST VISIT IBS (irritable bowel syndrome) Abdominal bloating Chronic idiopathic constipation GERD (gastroesophageal reflux disease) LLQ abdominal pain Helicobacter pylori (H. pylori) Uncontrolled diabetes mellitus with hyperglycemia Plan Quadruple therapy to treat H pylori patient is already on PPI. Will retest for eradication of bacteria. Patient will be scheduled for upper endoscopy. Patient was instructed to stay on medication without stopping. Better control of her diabetes. Will find out if patient has fisher trap that she follows with at [facility] if not we will send her to endocrinology here at [facility]. Continue Linzess. Continue Dexilant. Avoid dietary triggers and late night snacking. Staying upright for minimum 3 hours after meals discussed with patient. Patient will return in 2 months so we can discuss going for upper endoscopy. Patient will think about going for colonoscopy. She is agreeable to this plan and verbalizes understanding of instructions. She was given the opportunity to ask questions and all questions answered. ? Thank you for allowing me to participate in her care Medications New bismuth subsalicylate 2 tabs PO QID 14 days 112 tabs 0RF A04.8 doxycycline hyclate 100 mg PO BID 14 days 28 caps 0RF metronidazole 1,000 mg (2 x 500 mg) PO BID 56 tabs 0RF A04.8 TODAY'S VISIT Patient is here today for follow-up. After last visit patient was treated with quadruple therapy for H pylori. Patient reports that she did not finish the whole treatment. Patient reports that she left four capsules in the bottle as she had been vomiting and had diarrhea. Currently patient is taking Dexilant and her symptoms of acid reflux are suppressed. Occasional epigastric pain and abdominal bloating depending on what she eats. Patient reports that she is moving her bowels better now that she is taking Linzess. Patient denies melena, hematochezia, unintentional weight loss or ribbon like stools. Patient had negative Cologuard in March. [facility] Medical History Uncontrolled diabetes mellitus with hyperglycemia IBS (irritable bowel syndrome) H. pylori infection High cholesterol Hypertension Diabetes Asthma Surgical History History of cholecystectomy History of tubal ligation History of esophagogastroduodenoscopy (EGD) (~05/2010) Hx of colonoscopy (~05/2010) Family History Father Heart disease Mother Cancer Diabetes HTN (hypertension) Sister Diabetes Brother Heart disease Maternal Grandmother Cancer Paternal Grandmother Cancer Social History Alcohol intake: current Alcohol intake frequency: does not drink Review of Systems Const Denies weight gain and Denies weight loss ENT Reports no additional complaints, Denies dysphagia and Denies odynophagia Card Reports no additional complaints Resp Reports no additional complaints GI Reports abdominal pain (LLQ), Denies belching, Denies melena, Reports bloating, Denies change in bowel habits, Denies dysphagia, Denies excessive flatus, Denies dyspepsia, Reports heartburn, Denies diarrhea, Denies loose stools, Denies nausea, Denies odynophagia and Denies vomiting Reports no additional complaints Musc Reports no additional complaints Neuro Reports no additional complaints Psych Reports no additional complaints Endo Reports no additional complaints Physical Exam Vital Signs: Last Vital Signs Pulse 66 06/26/24 10:44 Pulse Ox 96 06/26/24 10:44 Oxygen Delivery Method Room Air 06/26/24 10:44 BMI result Body Mass Index 36.9 Const General: healthy appearing and no acute distress Nutritional Appearance: obese Orientation/consciousness: patient oriented x3 Resp Effort & Inspection: normal respiratory effort, able to speak in complete sentences, no tracheal deviation and symmetric chest movement Auscultation: clear to auscultation bilaterally Cardio Rate: regular rate GI Inspection: Yes normal to inspection, No distended and Yes obesity Palpation (GI): Soft to palpation, not firm, nontender and No hepatosplenomegaly present Auscultation: normal bowel sounds General: Yes no CVA tenderness Back/Spine/Pelvis Back: no CVA tenderness Skin General skin exam: elasticity normal, turgor normal and dry skin Neuro General: patient oriented x3 Psych Appearance: grossly normal Mental Status: mental status grossly normal Assessment & Plan Assessment & Plan (1) IBS (irritable bowel syndrome): Code(s): K58.9 - Irritable bowel syndrome, unspecified Category: Medical Qualifiers: Irritable bowel syndrome type: with constipation Qualified Code(s): K58.1 - Irritable bowel syndrome with constipation (2) Abdominal bloating: Code(s): R14.0 - Abdominal distension (gaseous) Category: Medical (3) Chronic idiopathic constipation: Code(s): K59.04 - Chronic idiopathic constipation Category: Medical (4) GERD (gastroesophageal reflux disease): Code(s): K21.9 - Gastro-esophageal reflux disease without esophagitis Category: Medical Qualifiers: Esophagitis presence: esophagitis presence not specified Qualified Code(s): K21.9 - Gastro-esophageal reflux disease without esophagitis (5) Uncontrolled diabetes mellitus with hyperglycemia: Code(s): E11.65 - Type 2 diabetes mellitus with hyperglycemia Category: Medical Qualifiers: Diabetes mellitus type: type 2 Qualified Code(s): E11.65 - Type 2 diabetes mellitus with hyperglycemia (6) LLQ abdominal pain: Code(s): R10.32 - Left lower quadrant pain (7) Helicobacter pylori (H. pylori): Code(s): A04.8 - Other specified bacterial intestinal infections Plan Patient will continue taking Linzess daily. Increase fluid intake and activity to promote better bowel motility. Patient will hold Dexilant and will return in 2 weeks for retesting for H pylori. Patient will take famotidine in the meantime to help with reflux. Stop famotidine 24 hours before, NPO 1 hour before testing. Patient will return in the office in 3 months, sooner on as needed basis. She is agreeable to this plan and verbalizes understanding of instructions. She was given the opportunity to ask questions and all questions answered. Thank you for allowing me to participate in her care Orders: Orders H Pylori Breath Test Today K21.9 - Gastro-esophageal reflux disease without esophagitis Medications: New famotidine (Pepcid) 20 mg PO BID 30 tabs 0RF K29.70 - Gastritis, unspecified, without bleeding Coding Level of Care Code Est Pt Level 4 (93224) Complex EM visit Add On G2211 Diagnoses Irritable bowel syndrome with constipation K58.1 Irritable bowel syndrome type: with constipation Abdominal bloating R14.0 Chronic idiopathic constipation K59.04 Gastroesophageal reflux disease, unspecified whether esophagitis present K21.9 Esophagitis presence: esophagitis presence not specified Uncontrolled type 2 diabetes mellitus with hyperglycemia E11.65 Diabetes mellitus type: type 2 LLQ abdominal pain R10.32 Helicobacter pylori (H. pylori) A04.8 Time Spent (min) 35 Comment 25 minutes spent with patient and additional 10 minutes spent reviewing her records
[2024-06-26 10:44] VITALS: PULSE 66; O2SAT 96; BMI 36.9
== END 2024-06-26 13:44 | disposition home or self-care (01) ==
LOC: HO.HGI 10:28
PROVIDERS: PCP Registered Nurse; Visit Provider Nurse Practitioner Family
DX: K58.1 Irritable bowel syndrome with constipation (principal); R14.0 Abdominal distension (gaseous); K59.04 Chronic idiopathic constipation; K21.9 Gastro-esophageal reflux disease without esophagitis; E11.65 Type 2 diabetes mellitus with hyperglycemia; R10.32 Left lower quadrant pain; A04.8 Other specified bacterial intestinal infections
CPT/HCPCS: 99214

== ENCOUNTER → 2024-06-26 10:28 | Outpatient (BNVA) | payer MEDICAID, SELFPAY | PROVIDERS: PCP Registered Nurse; Visit Provider Nurse Practitioner Family | DX: K58.1 Irritable bowel syndrome with constipation (principal); K59.04 Chronic idiopathic constipation; K21.9 Gastro-esophageal reflux disease without esophagitis; R14.0 Abdominal distension (gaseous); R10.32 Left lower quadrant pain; A04.8 Other specified bacterial intestinal infections; E11.65 Type 2 diabetes mellitus with hyperglycemia | CPT/HCPCS: 99212 ==

== ENCOUNTER 2024-07-11 10:09 | Outpatient (REF) | payer MEDICAID, SELFPAY ==
[2024-07-12 15:24] LABS: H Pylori Breath Test Negative (Negative)
== END 2024-07-11 10:10 | disposition home or self-care (01) ==
LOC: HO.LNP 10:09
PROVIDERS: PCP Registered Nurse; Visit Provider Nurse Practitioner Family
DX: E11.9 Type 2 diabetes mellitus without complications (principal); K21.9 Gastro-esophageal reflux disease without esophagitis
CPT/HCPCS: 82947; 83013; 99211; 99212

== ENCOUNTER 2024-07-11 10:09 | Outpatient (AMB) | payer MEDICAID, SELFPAY ==
--- NOTE | 2024-07-11 10:22 | AM.OFFVISNUR ---
Intake Visit Reasons: H. Pylori breath test Allergies Penicillins [PENICILLINS] Allergy (Unknown, Verified 06/26/24 10:46) UNKNOWN HIGH BLOOD PRESSURE MED Allergy (Unknown, Uncoded 06/26/24 10:46) ASTHMA Nursing Note Patient presents for collection of H Pylori breath test. Patient has been fasting for 1 hour (nothing to eat, drink, no chewing gum or smoking) has not taken any antacid medication for at least 2 weeks and has no allergies to artificial sweeteners.?? Assessment & Plan Assessment & Plan (1) GERD (gastroesophageal reflux disease): Code(s): K21.9 - Gastro-esophageal reflux disease without esophagitis Category: Medical Qualifiers: Esophagitis presence: esophagitis presence not specified Qualified Code(s): K21.9 - Gastro-esophageal reflux disease without esophagitis Plan Patient presents for collection of H Pylori breath test. Patient has been fasting for 1 hour (nothing to eat, drink, no chewing gum or smoking) has not taken any antacid medication for at least 2 weeks and has no allergies to artificial sweeteners.???This test checks for an overgrowth of bacteria in your stomach. We all have bacteria but some may have more than others. It is treatable. if the test comes back negative there is nothing else to do. If the test result is positive we will treat you with 2 antibiotics and a medication to decrease the acid in your stomach (PPI) for 2 weeks. Two weeks after you have completed the treatment we will retest you to make sure the overgrowth has resolved. Patient Instructions: Process for specimen collection and reason for testing was explained to the patient. Specimen collection. Patient instructed to take a deep breath and then exhale into the blue bag, filling it up as much as possible. Patient instructed to drink a mixture of water and the artificial sweetener with a straw. A 15 minute wait period was observed. Patient instructed to take a deep breath and then exhale into the pink bag, filling it up as much as possible.?? Coding Level of Care Code Established Pt Est Pt Level 1 (52896) Patient Type Established Medical Decision Making Straight Forward Diagnoses Gastroesophageal reflux disease, unspecified whether esophagitis present K21.9 Esophagitis presence: esophagitis presence not specified
--- OUTSIDE RECORDS SUMMARY | 2024-07-11 11:10 | XMS_ITS | Clinical Summary ---
Author Organization [employer] Address [address] [place] [address] [address] [place] [address] Care Team Providers Care Certified Breastfeeding Educator Name Role Phone Luciana Zuniga NETO Primary Care Provider [phone] Allergies No known active allergies Medications Blood Glucose Monitoring Suppl (FreeStyle [place] Lite) w/Device kit TEST BLOOD SUGAR 4 TIMES A DAY 022 Active Dexilant [address] capsule Take 1 capsule by mouth in the morning. 023 Active valACYclovir (Valtrex) 1 g tablet TAKE 1 TABLET BY MOUTH EVERY 8 HOURS FOR 7 DAYS Active senna (Senokot) 8.6 MG tablet Take 2 tablets (17.2 mg) by mouth if needed at bedtime for constipation. 60 tablet 023 Active TRUEplus Lancets 33G misc TEST BLOOD SUGAR FIVE TIMES DAILY 200 each 023 Active glucose blood (FREESTYLE LITE) test strip TEST BLOOD SUGAR FIVE TIMES DAILY 150 each 023 Active Blood Pressure Monitor kitIndications:E ssential hypertension Check blood pressure twice a week. Dx hypertension 1 kit 023 Active gabapentin (Neurontin) 100 MG capsuleIndicatio ns:Fibromyalgia TAKE 1 CAPSULE BY MOUTH THREE TIMES DAILY 90 capsule 11 024 Active loratadine (Claritin) 10 MG tabletIndication s:Seasonal allergies TAKE 1 TABLET BY MOUTH EVERY MORNING NEEDED FOR ALLERGIES 90 tablet 3 024 Active FREESTYLE LITE test stripIndications :Type 2 diabetes mellitus without complication, with long-term current use of insulin ([facility]) Use to test blood sugar 3 times daily 100 each 024 2024 Active Lancets miscIndications: Type 2 diabetes mellitus without complication, with long-term current use of insulin ([facility]) Use to test blood sugar 3 times daily 100 each Active Alcohol Swabs 70 % padsIndications: Type 2 diabetes mellitus without complication, with long-term current use of insulin ([facility]) Use to test blood sugar 3 times daily 100 each Active Blood Glucose Monitoring Suppl (Executive CaddieStyle [place] Lite) w/Device kitIndications:T ype 2 diabetes mellitus without complication, with long-term current use of insulin ([facility]) Use to test blood sugar 3 times daily 1 kit Active albuterol (Ventolin HFA) 108 (90 Base) MCG/ACT inhalerIndicatio ns:Moderate persistent asthma without complication INHALE 2 PUFFS EVERY 4 to 6 HOURS NEEDED FOR WHEEZING OR SHORTNESS OF BREATH 18 g Active albuterol (2.5 MG/3ML) 0.083% nebulizer solutionIndicati ons:Moderate persistent asthma without complication INHALE 1 AMPULE USING A NEBULIZER EVERY 4 to 6 HOURS NEEDED FOR WHEEZING OR SHORTNESS OF BREATH 90 mL Active Continuous Glucose Sensor (FreeStyle Lorenza 2 Sensor) miscIndications: Type 2 diabetes mellitus without complication, with long-term current use of insulin ([facility]) TEST BLOOD SUGAR. CHANGE EVERY 14 DAYS 2 each Active Continuous Glucose Deputy Fire Chief (FreeStyle Lorenza 2 [place]) deviceIndication s:Type 2 diabetes mellitus without complication, with long-term current use of insulin ([facility]) Use in combination with sensor to monitor blood sugar levels. 1 each Active Acetaminophen Extra Strength 500 MG tabletIndication s:Polyarthralgia TAKE 1 TABLET BY MOUTH EVERY 4 TO 6 HOURS NEEDED FOR PAIN. NO MORE THAN 8 TABLETS PER 24 HOURS FOR PAIN 100 tablet 5 Active Pentips Generic Pen Fleming 32G X 4 MM misc USE WITH INSULIN 100 each 4 025 Active metFORMIN XR (Glucophage-XR) 500 MG 24 hr tablet TAKE 2 TABLETS BY MOUTH ONCE DAILY IN THE MORNING 180 tablet 3 Active rosuvastatin (Crestor) 40 MG tabletIndication s:Mixed hyperlipidemia TAKE 1 TABLET BY MOUTH EVERY DAY AT BEDTIME 90 tablet 3 025 Active fenofibrate (Triglide) 160 MG tabletIndication s:Mixed hyperlipidemia TAKE 1 TABLET BY MOUTH EVERY MORNING 90 tablet 3 025 Active Trulicity 1.5 MG/0.5ML solution auto-injectorInd ications:Type 2 diabetes mellitus without complication, unspecified whether intermodal customer service insulin use ([facility]) INJECT ONE PEN (=1.5MG) SUBCUTANEOUSLY ONCE A WEEK DIRECTED 2 mL 3 Active valsartan-hydroC HLOROthiazide (Diovan HCT) 80-12.5 MG tabletIndication s:Essential hypertension Take 1 tablet by mouth Once per day. 90 tablet 1 025 2025 Active Mometasone Furoate (Asmanex HFA) 100 MCG/ACT aerosol INHALE 2 PUFFS BY MOUTH TWICE DAILY. RINSE MOUTH AFTER USING. 13 g 3 025 Active montelukast (Singulair) 10 MG tablet Take 1 tablet (10 mg) by mouth at bedtime. 90 tablet 3 Active D3 Super Strength 50 MCG (2000 UT) capsule Take 50 mcg by mouth in the morning. Active Tresiba FlexTouch 200 UNIT/ML injection INJECT 80 UNITS SUBCUTANEOUSLY EVERY DAY AT BEDTIME Active HumaLOG KWIKPEN 200 UNIT/ML solution pen-injector pen INJECT 16 UNITS SUBCUTANEOUSLY TWICE DAILY BEFORE BREAKFAST AND BEFORE LUNCH, AND 14 UNITS BEFORE SUPPER Active Linzess 290 MCG capsule Take 290 mcg by mouth in the morning. Active Linzess 145 MCG capsule Take 145 mcg by mouth in the morning. 023 2024 Discontinued(D ose adjustment) Mometasone Furoate (Asmanex HFA) 100 MCG/ACT aerosol INHALE 2 PUFFS BY MOUTH TWICE DAILY. RINSE MOUTH AFTER USING. 13 g 3 024 05/23/ 2025 Discontinued(R eorder (will not trigger notification to Pharmacy)) insulin lispro protamine-insuli n lispro (HumaLOG Mix 75-25) (75-25) 100 UNIT/ML injectionIndicat ions:Type 2 diabetes mellitus treated with insulin ([facility]) INJECT 40 UNITS SUBCUTANEOUSLY EVERY DAY IN THE MORNING AND INJECT 45 UNITS SUBCUTANEOUSLY EVERY DAY IN THE EVENING 30 mL 5 024 2024 Discontinued(T herapy completed) montelukast (Singulair) 10 MG tablet TAKE 1 TABLET BY MOUTH EVERY EVENING 90 tablet 3 024 2024 Discontinued(R eorder (will not trigger notification to Pharmacy)) valsartan (Diovan) 80 MG tablet TAKE 1 TABLET BY MOUTH EVERY MORNING 90 tablet 3 024 2024 Discontinued(T herapy completed) Lantus SoloStar 100 UNIT/ML pen INJECT 80 UNITS SUBCUTANEOUSLY AT BEDTIME 45 mL 1 025 2024 Discontinued(T herapy completed) Active Problems Problem Noted Date Diagnosed Date [...] 215 Healthcare maintenance 07/09/2022 Assessment & Plan (07/06/2024 7:33 AM EDT): -Pap: last 2011. Pt previously declined repeat pap d/t discomfort with speculum exams. Discussed self insertion of speculum vs blind HPV swab. Pt will consider and may discuss at subsequent appt -Colonoscopy: 05/2010, 10 yr repeat. Upcoming appt with [facility] -Mammogram: [facility] 14 August 2021 -Bone density: ordered April 2023 Assessment & Plan (05/17/2023 2:03 PM EDT): -Pap: last 2011. Pt previously declined repeat pap d/t discomfort with speculum exams. Discussed self insertion of speculum vs blind HPV swab. Pt will consider and may discuss at subsequent appt -Colonoscopy: 05/2010, 10 yr repeat. Upcoming appt with [facility] -Mammogram: [facility] 14 August 2021 -Bone density: ordered April 2023 Assessment & Plan (01/09/2023 6:01 PM EST): -Pap: last 2011. Pt previously declined repeat pap d/t discomfort with speculum exams. Discussed self insertion of speculum vs blind HPV swab. Pt will consider and may discuss at subsequent appt -Colonoscopy: 05/2010, 10 yr repeat. Upcoming appt with [facility] -Mammogram: [facility] 14 August 2021 Assessment & Plan (10/03/2022 7:36 AM EDT): -Pap: last 2011. Pt previously declined repeat pap d/t discomfort with speculum exams. Discussed self insertion of speculum vs blind HPV swab. Pt will consider and may discuss at subsequent appt -Colonoscopy: 05/2010, 10 yr repeat. Upcoming appt with [facility] -Mammogram: [facility] 14 August 2021 Assessment & Plan (07/09/2022 8:05 AM EDT): -Pap: last 2011. Pt previously declined repeat pap d/t discomfort with speculum exams. Discussed self insertion of speculum vs blind HPV swab. Pt will consider and may discuss at subsequent appt -Colonoscopy: 05/2010, 10 yr repeat. Upcoming appt with [facility] -Mammogram: [facility] 14 August 2021 Diabetic gastroparesis (CMS/HCC) 12/20/2014 Essential hypertension 12/20/2014 Overview (07/08/2024): Valsartan-hydrochlorothiazide 80/12.5mg daily Assessment & Plan (07/08/2024 8:08 PM EDT): Encouraged to monitor home readings Addition of hydrochlorothiazide 12.5mg daily (combination pill) Check BMP in 2-4 weeks Encourage lifestyle modifications and ED precautions Assessment & Plan (01/09/2023 5:58 PM EST): Home BP monitor sent to pharmacy Encourage lifestyle modifications and ED precautions Assessment & Plan (10/03/2022 7:35 AM EDT): ?? Continue valsartan 80mg daily Assessment & Plan (07/09/2022 7:44 AM EDT): ?? Continue valsartan 80mg daily Irritable bowel syndrome 12/20/2014 Assessment & Plan (07/08/2024 8:08 PM EDT): Continue following with [facility] Continues with Linzess 290mcg daily Assessment & Plan (10/03/2022 7:35 AM EDT): [...] diet. Type 2 diabetes mellitus 12/20/2014 Overview (07/08/2024): Microalbumin/Cr:Alb: Dec 2022 WNL Eye exam: reports previous at [facility], referral to [facility] Care placed 07/09/22 PNA: PCV20 Dec 2022 Foot exam/peripheral pulses: no loss of protective sensation 08/18/21 MOSHE/ARB: yes Statin: yes Lab Results Component Value Date CHOL 172 01/03/2023 TRIG 149 01/03/2023 HDL 53 01/03/2023 LDLCHOLCAL 90 01/03/2023 Assessment & Plan (07/08/2024 8:07 PM EDT): Lab Results Component Value Date HGBA1C 11.5 (A) 07/06/2024 HGBA1C 12.2 (H) 01/06/2024 HGBA1C 12.2 (A) 10/20/2023 -A1c goal < 7%, above goal, although improvement compared to previous -Goal to improve pt understanding of diabetes, nutrition, and medications. Current med regimen (through [facility]) Tresiba 70 units Humalog 22 units tid metformin 1000mg bid Trulicity 1.5mg weekly - Counseling regarding nutrition provided - ED precautions reviewed Assessment & Plan (11/13/2023 8:36 AM EDT): [...] insulin she is using. - Referral to [facility] CDTM team - ED precautions reviewed Assessment [...] HGBA1C 9.7 (A) 07/06/2022 -BG in office [facility], improved to 400s s/p 10 [...] needed. Vitamin D deficiency 12/20/2014 Backache 12/20/2014 Recurrent major depressive disorder 12/20/2014 Assessment & Plan (07/08/2024 8:04 PM EDT): Scheduled for BE on 07/10/24 Denies SI/HI/thoughts of self harm Eczema 12/20/2014 Fibromyositis 12/20/2014 Illiteracy 12/20/2014 Moderate persistent asthma without complication 12/20/2014 Assessment & Plan (07/08/2024 8:10 PM EDT): - Reviewed importance of daily maintenance inhaler - maintenance: Asmanex - Rescue inhaler: albuterol - Cont singulair nightly Resolved Problems Problem Noted Date Diagnosed Date Resolved Date COVID-19 09/30/2022 10/01/2022 Encounters Date Type Department Care Team Description 07/10/2024 Telephone [facility] [address] [place] [address] Luciana Zuniga FNP 07/06/2024 10:00 AM EDT Office Visit [facility] [address] [place] [address] Luciana Zuniga FNP Type 2 diabetes mellitus with hyperglycemia, with long-term current use of insulin (CMS/HCC) (Primary Dx); Healthcare maintenance; Essential hypertension; Recurrent major depressive disorder, remission status unspecified (CMS/HCC); Irritable bowel syndrome, unspecified type; Moderate persistent asthma without complication; Gait instability 07/06/2024 Patient Outreach [facility] [address] [place] [address] Luciana Zuniga FNP Care Coordination (CH[facility] outreach for SDOH housing search-referral completed ) 07/06/2024 Travel 07/03/2024 Telephone [facility] [address] [place] [address] Luciana Zuniga FNP Chart Prep 06/12/2024 Orders Only GENERIC EXTERNAL DATA DEPARTMENT Provider, Generic External Data 05/14/2024 Refill [facility] [address] [place] [address] Luciana Zuniga FNP Type 2 diabetes mellitus without complication, unspecified whether intermodal customer service insulin use (CMS/HCC) 05/03/2024 Refill [facility] [address] [place] [address] Luciana Zuniga FNP Mixed hyperlipidemia 04/27/2024 Population Health Risk Score [facility] () Department [address] [place] [phone] Provider, Population Health Generic 04/24/2024 Telephone [facility] [address] [place] [address] Luciana Zuniga FNP Appointment Request 04/22/2024 Refill [facility] [address] [place] [address] Luciana Zuniga FNP from Last 3 Months Immunizations Immunization Administration Dates Next Due Influenza injectable quadriv [...] Answer Date Recorded Patient Health Questionnaire-9 Score 8 07/06/2024 Patient Health Questionnaire-9 Score 8 07/06/2024 Last PHQ-9: Questionnaire Data Not on file 0 07/06/2024 Housing Stability Answer Date Recorded What is your housing situation today? I do not have housing (Staying with others, in a hotel, in a retirement, living outside on the street, on a beach, in a car, or in a park 07/06/[address] you li ve. Do you have problems with any of the following? Pests such as bugs, ants, or mice;Inadequate heat 07/06/2024 Food Insecurity Answer Date Recorded Within the past 12 months, y ou worried that your food would run out before you got money to buy more: Often true 07/06/2024 Within the past 12 months,th e food you bought just didn't last and you didn't have enough money to get more: Often true Transportation Answer Date Recorded In the past 12 months, has l ack of transportation kept you from medical appts, meetings, work or from getting things needed for daily living? Yes, it has kept me from medical appointments or getting medications. 07/06/2024 Utilities Answer Date Recorded In the past 12 months, has t he electric, gas, oil or water company threatened to shut off services in your home? Yes 07/06/2024 Depression Answer Date Recorded Patient Health Questionnaire-2 Score 2 07/06/2024 Internet Access Answer Date Recorded Internet Access Q1 No 07/06/2024 Internet Access Q2 I cannot afford it 07/06/2024 Comments Unknown Sex and Gender Information Value Date Recorded Sex Assigned at Female 12/14/2021 10:21 AM EDT Legal Sex Female 10:21 AM EDT Gender Identity Female 12/14/2021 10:21 AM EDT Sexual Orientation Straight 12/14/2021 10 :21 AM EDT Last Filed Vital Signs Vital Sign Reading Time Taken Comments Blood Pressure 158/60 07/06/2024 10:28 AM EDT Pulse 71 07/06/2024 10:27 AM EDT Temperature 36.3 ??C (97.3 ??F) 07/06/2024 10:27 AM E DT Respiratory Rate 20 07/06/2024 10:27 AM EDT Oxygen Saturation 97% 07/06/2024 10:27 AM EDT Inhaled Oxygen Concentration - - Weight 100 kg (221 lb 8 oz) 07/06/2024 10:27 AM EDT Height 165.1 cm (5' 5 ) 07/06/2024 10:27 AM EDT Body Mass Index 36.86 07/06/2024 10:27 AM EDT Plan of Treatment Upcoming Encounters Date Type Department Care Team (Late st Contact Info) Description 07/23/2024 11:00 AM EDT Clinical Support [facility] [address] [place] [address] Health Maintenance Due Date Last Done Comments CT Colonography 1961 Colonoscopy 1961 Colorectal Cancer Screening 1961 FIT DNA/Cologuard 1961 FIT 1961 FOBT 1961 Sigmoidoscopy 1961 Disability Screening 1961 Diabetes: Foot Exam 1971 Eye Exam 1971 Alcohol/Substance Use Screening 1973 Pap Smear 1982 Cervical Cancer Screening 1991 HPV/Cotest 1991 Zoster Vaccines (1 of 2) 2011 RSV Patients and Patients Aged 60 years or older (1 - Risk 60-74 years 1-dose series) 2021 Mammogram 08/29/2023 08/28/2021 COVID-19 Vaccine ( season) 2023 06/23/2022, 03/10/2021, 07/29/2020, Additional history exists Influenza Vaccine (#1) 2023 3, 01/01/2016, 10/20/2012 Diabetes: Urine Protein Screening 01/04/2024 01/03/2023, 10/01/2021, 01/21/2021 Lipid Panel 01/04/2024 01/03/2023, 09/14, 01/21/2021, Additional history exists Diabetes: Hemoglobin A1C 10/06/2024 025, 01/06/2024, 10/20/2023, Additional history exists Tobacco Screening 11/10/2024 11/11/2023 Depression Screening 07/06/2025 07/06/2024, 07/07/19 SDOH Screening 07/06/2025 07/06/2024 DTaP/Tdap/Td Vaccines (4 - Td or Tdap) [...] patient's age to complete this topic Meningococcal B Vaccine Aged Out No l onger eligible based on patient's age to complete [...] Procedure Name Priority Date/Time Associated Diagnosis Comments POCT GLUCOSE Routine 07/06/2024 11:00 AM EDT Type 2 diabetes mellitus with hyperglycemia, with long-term current use of insulin ([facility]) POCT GLYCATED HEMOGLOBIN, TOTAL Routine 07/06/2024 10:59 AM EDT Type 2 diabetes mellitus with hyperglycemia, with long-term current use of insulin ([facility]) GLUCOSE, WHOLE BLOOD Routine 06/12/2024 3:33 PM EDT ALBUMIN, RANDOM URINE W/CREATININE Routine 01/03/2023 11:40 [...] Relevant to Health Maintenance Results * (ABNORMAL) POCT Glucose (07/06/2024 11:00 AM EDT) Glucose Blood, POC 223(A) 60 - 200 mg/dL QC Media Lot # [id number] Lot# Expiration Date , Blood Capillary blood specimen / Unknown 07/06/2024 11:00 AM EDT us Ryanle [employer] [facility] POINT OF CARE TEST ENTER/EDIT ORDERABLES Final Result * (ABNORMAL) POCT HGB A1C (07/06/2024 10:59 AM EDT) Hemoglobin A1C 11.5(A) 4.0 - 6.0 % QC [employer] Lot # [id number] Lot# Expiration Date [id number] Blood 07/06/2024 10:5 9 AM EDT us Chowdhury Nagisa,[employer] [facility] POINT OF CARE TEST ENTER/EDIT ORDERABLES Edited Result - Final * (ABNORMAL) Glucose, Whole Blood (06/12/2024 3:33 PM EDT) Glucose, Whole Blood 269(H) 60 - 115 mg/dL [facility] Comment:METER #: [id number] 5Testing performed in the Endocrinology Department [address] , [address], [facility]. 06/12/2024 3:33 PM EDT 06/12/2024 3:39 PM EDT us Generic External Data Provider LAB BLOOD ORDERAB LES Final Result Performing Organization Address [facility] Co de Phone Number [facility] [address] [place] [phone] * Albumin, Random Urine W/Creatinine (01/03/2023 11:40 AM EST) Pathologist [facility] Creatinine, Urine 146.72 mg/dL [facility] Microalbumin Urine 35.0 mg/L [facility] Microalbum Creatinine Ratio Ur 23.8 <30 ug/mg cr [facility] Comment:Albumin/Creatinine R atio Reference Ranges: Normal: < 30 ug/mg creatinine Microalbuminuria: 30 - 300 ug/mg creatinineClinical Albuminuria: > 300 ug/mg creatinine Urine 01/03/2023 11:4 0 AM EST 01/03/2023 2:52 PM EST us Luciana Zuniga [employer]INE ELECTRICIAN HELPER LAB URINE ORDERABLES Final Res ult Performing Organization Address [facility] Co de Phone Number [facility] [address] [place] [phone] * Hepatitis C Viral RNA, Quantitative, Real-Time PCR (01/03/2023 11:31 AM EST) Pathologist [facility] Hepatitis C Viral Load <15 NOT DETECTED NOT DETECTED IU/mL [facility] HCV Log PCR <1.18 NOT DETECTED NOT DETECTED Log IU/mL [facility] Comment:This test was perfor med using Real-Time Polymerase ChainReaction.Reportable Range: 15 IU/mL to 100,000,000 IU/mL(1.18 Log IU/mL to 8.00 Log IU/mL).The analytical performance characteristics of thisassay have been determined by [employer].The modifications have not been cleared or approved bythe FDA. This assay has been validated pursuant to theCLIA regulations and is used for clinical purposes.For more information on this test, go to:http://education.Bouncefootball/faq/TPP98m5(This link is being provided for informational/educational purposes only.)THIS TEST WAS PERFORMED AT:[facility] [place] [phone] RIVAS MD Blood 01/03/2023 11:3 1 AM EST 01/03/2023 2:37 PM EST us Luciana Zuniga [facility] BLOOD ORDERABLES Final Res ult [facility] [address] [place] [phone] * HIV-1/2 Antigen and Antibodies, Fourth Generation, with Reflexes (01/03/2023 11:31 AM EST) HIV AB/AG Nonreactive Nonreactive [facility] Comment:HIV-1 p24 Ag and/or HIV-1/HIV-2 Ab not detected.A test result that is nonreactive does not exclude thepossibility of exposure to or infection with HIV-1 and/orHIV-2. Nonreactive results in this assay for individualswith prior exposure to HIV-1 and/or HIV-2 may be due toantigen and antibody levels that are below the limit ofdetection of this assay.The CRAZE HIV Ag/Ab Combo assay result andsupplemental assay results should be interpreted inconjunction with the patient's clinical presentation,history and other laboratory results. If the results areinconsistent with clinical evidence, additional testing issuggested to confirm the result. Blood Venous blood specimen / Unknown 01/03/2023 11:31 AM EST 01/03/2023 2:37 PM EST Luciana Zuniga [employer]INE ELECTRICIAN HELPER LAB BLOOD ORDERABLES Final Res ult Performing Organization Address [facility] Co de Phone Number [facility] [address] [place] [phone] * Lipid Panel, Standard (01/03/2023 11:31 AM EST) Triglycerides 149 <150 mg/dL [facility] Comment:Desirable Triglyceri de: less than 150 mg/dLBorderline High Triglyceride 150-199 mg/dLHigh Triglyceride: 200-499 mg/dLVery High Triglyceride: greater than or equal to 5OO mg/dL Cholesterol 172 <200 mg/dL [facility] Comment:Desirable Cholestero l: less than 200 mg/dLBorderline High Cholesterol: 200-239 mg/dLHigh Cholesterol: greater than 239 mg/dL LDL Cholesterol Calculated 90 <100 mg/dL [facility] Comment:Desirable LDL: less than 100 mg/dLNear Optimal/Above Optimal LDL: 110- 129 mg/dLBorderline High LDL: 130-159 mg/dLHigh LDL: 160-189 mg/dLVery High LDL: greater than or equal to 190 mg/dL HDL Cholesterol 53 >40 mg/dL [facility] Comment:Desirable HDL: great er than 40 mg/dL Note: This HDL assay may give artificially low results in patients with liver disease. Blood Venous blood specimen / Unknown 01/03/2023 11:31 AM EST 01/03/2023 2:37 PM EST Luciana Zuniga [employer]INE ELECTRICIAN HELPER LAB BLOOD ORDERABLES Final Res ult Performing Organization Address City/[facility]/ZIP Co de Phone Number [facility] [address] [place] [phone] * Mammography Report 1 (08/28/2021 1:30 PM EDT) Anatomical Region Laterality Modality Breast Bilateral Mammography 08/28/2021 1:30 PM EDT Narrative 08/31/2021 4:01 PM EDT Refer to the Notes tab for result details [facility] Procedure: Mammography Report 1 Procedure Note Provider, MD Diallo - 05/09/2022 Refer to the Notes tab for result details [facility] Procedure: Mammography Report 1 Mela Ortega [employer] BI PROCEDURES Final Result from Last 3 Months or Most Recently Relevant to Health Maintenance [place] [address] [place] [address] Care Teams Certified Breastfeeding Educator Relationship Specialty Start Date End Date Luciana Zuniga FNP [address] [place] [phone] PCP - General Family Medicine 10/12/21
== END 2024-07-11 10:23 | disposition home or self-care (01) ==
LOC: HO.HGI 10:09
PROVIDERS: PCP Registered Nurse; Visit Provider Nurse Practitioner Family
DX: K21.9 Gastro-esophageal reflux disease without esophagitis (principal)

== ENCOUNTER 2024-07-11 10:57 | Outpatient (AMB) | payer MEDICAID, SELFPAY ==
[2024-07-11 11:27] VITALS: BP 162/64; PULSE 59; BMI 37.0
--- NOTE | 2024-07-11 11:27 | A.OFFVIS_ITS ---
Vital Signs 07/11/24 11:27 Height 5 ft 5 in Weight 222 lb 10.67 oz BMI 37.0 BP 162/64 H Blood Pressure Location Rt brachial Position Sitting Pulse 59 Pulse Source Pulse Oximeter Intake Visit Reasons: T2DM Intake Note: Patient presents today for a follow-up on Type 2 Diabetes Mellitus: Last Diabetic eye exam was on: Over 5 years ago Last Podiatry exam was on: Patient does not see a Operations Staff Specialist Security Most recent HbA1c: 10.8%, 06/18/2024 Random Glucose- 121 mg/dL, Today Senior Housekeeper Required: Yes Senior Housekeeper Language: Accounting Clerk Services: Senior Housekeeper Offered & Declined Accompanied by: Daughter Allergies Penicillins (PENICILLINS) Allergy (Unknown, Verified 06/26/24 10:46) UNKNOWN HIGH BLOOD PRESSURE MED Allergy (Unknown, Uncoded 06/26/24 10:46) ASTHMA HPI Comments Details: 64 YO female who is seen in f/u for T2DM. She was seen as an initial consult 03/15/2024 at which time insulin was changed from Lantus and 70/30 insulin to Tresiba plus Humalog. HgbA1C 10.6% 06/12/24. Hgb A1C 12.2% 01/06/24. She has started back on a freestyle Lorenza 2 Initially diagnosed with T2DM at age 29. Was initially started on treatment with metformin and insulin Current regimen: Tresiba 70 units Humalog 22 units tid metformin 1000mg bid Trulicity 1.5mg weekly (unable to increase secondary to constipation which is now under better control) Reports low sugars: Takes a consistent hs snack Treats lows with glucose tablets/juice Family history of T2DM in mother brother and sister Has eyes checked yearly, last eye exam more than 4 years no retinopathy Has neuropathy, C/o numbness, tingling, no cramping or pain last foot exam: declined today doesn't see foot MD Has nephropathy, on ARB. 01/03/2023 eGFR>60 microalbumin 35 Has HLD, on statin LDL 90 as measured on 01/06 Denies CAD Diet: breakfast: eggs boiled toast or crackers lunch: white rice beans or steak, chicken small portions supper smaller meal exercise: walking No recent DM education PFSH Medical History Uncontrolled diabetes mellitus with hyperglycemia IBS (irritable bowel syndrome) H. pylori infection High cholesterol Hypertension Diabetes Asthma Surgical History History of cholecystectomy History of tubal ligation History of esophagogastroduodenoscopy (EGD) (~05/2010) Hx of colonoscopy (~05/2010) Family History Father Heart disease Mother Cancer Diabetes HTN (hypertension) Sister Diabetes Brother Heart disease Maternal Grandmother Cancer Paternal Grandmother Cancer Social History Alcohol intake: current Alcohol intake frequency: does not drink Physical Exam Vital Signs: Last Vital Signs Pulse 59 07/11/24 11:27 BP 162/64 H 07/11/24 11:27 BMI result Body Mass Index 37.0 Const Other: Physical exam Results Reviewed Results Reviewed: Laboratory Last Values Glucose (Clinic) 121 mg/dL (60-115) H 07/11/24 11:39 Assessment & Plan Assessment & Plan (1) Uncontrolled diabetes mellitus with hyperglycemia: Code(s): E11.65 - Type 2 diabetes mellitus with hyperglycemia Category: Medical Qualifiers: Diabetes mellitus type: type 2 Qualified Code(s): E11.65 - Type 2 diabetes mellitus with hyperglycemia Plan: 64-year-old type 2 diabetic with neuropathy and nephropathy with poorly controlled diabetes. She will meet with early childhood educator aide for general education. Start Minteos 3 as this will allow us to determine where to make adjustments in her medications The patient had an opportunity to ask questions regarding treatment plan. The patient expressed understanding and agreement with the above treatment plan. The patient is aware they should contact our office by phone for worsening glucose readings or for any low blood sugars which may warrant a change in diabetes medication. Compliance is encouraged with medications and any followup testing/consults which may have been ordered. Coding Level of Care Code Est Pt Level 4 (33166) Complex EM visit Add On G2211 Diagnoses Uncontrolled type 2 diabetes mellitus with hyperglycemia E11.65 Diabetes mellitus type: type 2
[2024-07-11 11:43] LABS: Glucose, Whole Blood 121 mg/dL (60-115)
== END 2024-07-11 12:13 | disposition home or self-care (01) ==
LOC: HO.ENCR 10:58
PROVIDERS: PCP Registered Nurse; Visit Provider Nurse Practitioner Adult Health
DX: E11.65 Type 2 diabetes mellitus with hyperglycemia (principal)
CPT/HCPCS: 99214

== ENCOUNTER 2024-07-31 14:00 | Outpatient (AMB) | payer MEDICAID, SELFPAY ==
--- NOTE | 2024-07-31 14:59 | MHC.AMDMED ---
Intake Intake Visit Reasons: T2DM Police Sergeant Precinct Required: Yes Police Sergeant Precinct Name: [place] [id number] Accompanied by: Daughter Allergies Penicillins (PENICILLINS) Allergy (Unknown, Verified 06/26/24 10:46) UNKNOWN HIGH BLOOD PRESSURE MED Allergy (Unknown, Uncoded 06/26/24 10:46) ASTHMA HPI Comprehensive Diabetes Asmnt Most Recent Diabetes Results: Microalb/Creat Ratio, (<30) 46.9 ug/mg cr H 06/18/24 Cholesterol, (<200) 162 mg/dL 06/18/24 HDL Cholesterol, (>40) 52 mg/dL 06/18/24 Triglycerides, (<150) 140 mg/dL 06/18/24 Creatinine, (0.5-1.4) 0.99 mg/dL 06/18/24 BUN, (9-16) 21 mg/dL H 06/18/24 Sodium, (135-145) 137 mmol/L 06/18/24 Potassium, (3.3-5.1) 4.1 mmol/L 06/18/24 Chloride, (96-108) 101 mmol/L 06/18/24 Carbon Dioxide, (22-29) 31 mmol/L H 06/18/24 Calcium, (8.4-10.2) 9.4 mg/dL 06/18/24 AST, (5-31) 16 U/L 06/18/24 ALT, (0-31) 13 U/L 06/18/24 Total Protein, (6.5-8.0) 7.0 g/dL 06/18/24 Albumin, (3.5-5.0) 4.1 g/dL 06/18/24 [facility] Medical History Uncontrolled diabetes mellitus with hyperglycemia IBS (irritable bowel syndrome) H. pylori infection High cholesterol Hypertension Diabetes Asthma Surgical History History of cholecystectomy History of tubal ligation History of esophagogastroduodenoscopy (EGD) (~05/2010) Hx of colonoscopy (~05/2010) Family History Father Heart disease Mother Cancer Diabetes HTN (hypertension) Sister Diabetes Brother Heart disease Maternal Grandmother Cancer Paternal Grandmother Cancer Social History Alcohol intake: current Alcohol intake frequency: does not drink Assessment & Plan Assessment & Plan (1) Uncontrolled diabetes mellitus with hyperglycemia: Code(s): E11.65 - Type 2 diabetes mellitus with hyperglycemia Qualifiers: Diabetes mellitus type: type 2 Qualified Code(s): E11.65 - Type 2 diabetes mellitus with hyperglycemia Plan: Learning objectives: The patient was provided with verbal and written education on the following topics as outlined below. The patient met all learning objectives and was able to verbalize understanding and provide teach back of education topics discussed . The patient was provided with the opportunity to ask questions and all questions were answered. Patient Assessment Assess patient education level/literacy/barriers, patient diagnosed at age 29. Last A1c May 2024 10.2% Tresiba 70 units Humalog 22 units tid metformin 1000mg bid Trulicity 1.5mg weekly Patient questions/concerns, at today's visit we discussed the importance of better control of glucose levels to prevent long-term complications. Patient stated at this time she is not interested in participating in Diabetes Education that I manage my medications the way I want Encourage patient to reconsider the importance of Diabetes Education. Patient declined to set up another diabetes Education appointment What is Diabetes? Pathophysiology How the body produces and uses insulin Identify type of DM Risk factors Signs of Diabetes Brief overview of Diabetes Management Monitoring blood sugar Following a meal plan Regular exercise Maintaining a healthy weight Taking medication as needed Members of the care team (PCP, RN, MA, RD, CDE, manager of organizational development) Blood glucose monitoring When/how often to test Target blood sugar ranges Patient uses [employer] castillo that daughter downloaded from [employer] on Anchor™ 3+ box We are unable to follow this version of the castillo in our Anchor™ view Patient declined to have new castillo set up on her phone Introduction to Nutrition Importance of healthy diet in managing DM Diet is personalized to individual preference Review patient?s regular diet/food preferences Who prepares meals/does food shopping/ Dining out?/ Barriers? How diet effects glucose Eating 3 balanced meals a day with small, healthy snacks between meals Review food groups Carbohydrates: What is a carbohydrate/Which food/food groups are considered carbohydrates Effect of carbohydrates on blood glucose Portion sizes Reading food labels Basic carb counting (if applicable per nursing assessment) Plate method Meal planning Recommendations: Follow plate method, consistent carbs and read nutritional labels. Smart Goal: Educational Materials: The patient was provided with the following written educational materials: Planning Healthy Meals Handout Patient Response to instructions: Comprehension of Instructions: Fair Readiness to make changes: Contemplation How confident they feel about making changes: Positive Portions of this note were created using voice recognition software, please excuse any words or phrases that may have been misinterpreted. Include regular daily activity. ADA recommends 30 minutes of exercise 5 days a week. Weight loss talk to PCP or Ballet Dancer before starting new plan. Test blood sugar as directed; Fasting and 2hpp largest meal. Watch trends in results. Utilize results and to assess how food, physical activity and medications affect blood sugar results. Bring glucometer or CGM to next visit. Be knowledgeable about diabetes medication, its action, side effects, efficacy, toxicity, prescribed dosage, appropriate timing and frequency of administration, effect of missed and delayed doses and instructions for storage, travel and safety. Problem solving techniques to monitor hypo/hyperglycemia episodes and treatments. Reduce risk reduction behaviors, smoking cessation, regular eye, foot and dental examinations. Patient Instructions: Incluir actividad diaria regular. ADA recomienda 30 minutos de ejercicio 5 d?as a la semana. P?rdida de peso, hable con el PCP o el cardi?logo antes de comenzar un nuevo plan. Mida el nivel de az?car en la [place] seg?n las indicaciones; Ayuno y comida m?s delfin de 2hpp. Observe las tendencias en los resultados. Utilice los resultados y eval?e c?mo los alimentos, la actividad f?bishop y los medicamentos afectan los resultados de az?car en la [place]. Lleve el gluc?metro o CGM a la pr?xima visita. Conocer los medicamentos para la diabetes, galeas acci?n, los efectos secundarios, la eficacia, la toxicidad, la dosis prescrita, el momento y la frecuencia de administraci?n apropiados, el efecto de las dosis olvidadas y retrasadas y las instrucciones de almacenamiento, viaje y seguridad. T?cnicas de resoluci?n de problemas para el seguimiento de episodios de hipo/hiperglucemia y tratamientos. Reducir los comportamientos de reducci?n de riesgos, dejar de fumar, ex?menes regulares de ojos, pies y dentales. Coding Level of Care Code Est Pt Level 1 (04676) Diagnoses Uncontrolled type 2 diabetes mellitus with hyperglycemia E11.65 Diabetes mellitus type: type 2
--- OUTSIDE RECORDS SUMMARY | 2024-07-31 16:07 | XMS_ITS | Clinical Summary ---
Author Organization [employer] Address [address] [place] [address] [address] [place] [address] Care Team Providers [facility] [employer] Name Role Phone Luciana Zuniga NETO Primary Care Provider [phone] Allergies No known active allergies Medications * This document contains information received from the source organization and may not represent a complete record from that organization. Blood Glucose Monitoring Suppl (FreeStyle [place] Lite) w/Device kit TEST BLOOD SUGAR 4 [...] MORNING NEEDED FOR ALLERGIES 90 tablet 3 Active FREESTYLE LITE test stripIndications :Type 2 diabetes mellitus without complication, with long-term current use of insulin ([facility]) Use to test blood sugar 3 times daily 100 each 12 024 2024 Active Lancets miscIndications: Type 2 diabetes mellitus without complication, with long-term current use of insulin ([facility]) Use to test blood sugar 3 times daily 100 each Active Alcohol Swabs 70 % padsIndications: Type 2 diabetes mellitus without complication, with long-term current use of insulin ([facility]) Use to test blood sugar 3 times daily 100 each 11 Active Blood Glucose Monitoring Suppl (FreeStyle [place] Lite) w/Device kitIndications:T ype 2 diabetes mellitus without complication, with long-term current use of insulin ([facility]) Use to test blood sugar 3 times daily 1 kit Active albuterol (Ventolin HFA) 108 (90 Base) MCG/ACT inhalerIndicatio ns:Moderate persistent asthma without complication INHALE 2 PUFFS EVERY 4 to 6 HOURS NEEDED FOR WHEEZING OR SHORTNESS OF BREATH 18 g 11 Active albuterol (2.5 MG/3ML) 0.083% nebulizer solutionIndicati ons:Moderate persistent asthma without complication INHALE 1 AMPULE USING A NEBULIZER EVERY 4 to 6 HOURS NEEDED FOR WHEEZING OR SHORTNESS OF BREATH 90 mL Active Continuous Glucose Sensor (FreeStyle Lorenza 2 Sensor) miscIndications: Type 2 diabetes mellitus without complication, with long-term current use of insulin ([facility]) TEST BLOOD SUGAR. CHANGE EVERY 14 DAYS 2 each Active Continuous Glucose Chief Operating Engineer (FreeStyle Lorenza 2 Valencia) deviceIndication s:Type 2 diabetes mellitus without complication, with long-term current use of insulin ([facility]) Use in combination with sensor to monitor blood sugar levels. 1 each Active Acetaminophen Extra Strength 500 MG tabletIndication s:Polyarthralgia TAKE 1 TABLET BY MOUTH EVERY 4 TO 6 HOURS NEEDED FOR PAIN. NO MORE THAN 8 TABLETS PER 24 HOURS FOR PAIN 100 tablet 5 Active Pentips Generic Pen [place] 32G X 4 MM misc USE WITH INSULIN 100 each 4 025 Active metFORMIN XR (Glucophage-XR) 500 MG 24 hr tablet TAKE 2 TABLETS BY MOUTH ONCE DAILY IN THE MORNING 180 tablet 3 025 Active rosuvastatin (Crestor) 40 MG tabletIndication s:Mixed hyperlipidemia TAKE 1 TABLET BY MOUTH EVERY DAY AT BEDTIME 90 tablet 3 025 Active fenofibrate (Triglide) 160 MG tabletIndication s:Mixed hyperlipidemia TAKE 1 TABLET BY MOUTH EVERY MORNING 90 tablet 3 025 Active Trulicity 1.5 MG/0.5ML solution auto-injectorInd ications:Type 2 diabetes mellitus without complication, unspecified whether long term care phlebotomist insulin use (CMS/HCC) INJECT ONE PEN (=1.5MG) SUBCUTANEOUSLY ONCE A WEEK DIRECTED 2 mL 3 025 Active valsartan-hydroC HLOROthiazide (Diovan HCT) 80-12.5 MG [...] by mouth at bedtime. 90 tablet 3 025 Active D3 Super Strength 50 MCG (2000 UT) capsule Take 50 mcg by mouth in the morning. Active Tresiba FlexTouch 200 UNIT/ML injection INJECT 80 UNITS SUBCUTANEOUSLY EVERY DAY AT BEDTIME 025 Active HumaLOG KWIKPEN 200 UNIT/ML solution pen-injector pen INJECT 16 UNITS SUBCUTANEOUSLY TWICE DAILY BEFORE BREAKFAST AND BEFORE LUNCH, AND 14 UNITS BEFORE SUPPER 025 Active Linzess 290 MCG capsule Take 290 mcg by mouth in the morning. 025 Active Linzess 145 MCG capsule Take 145 mcg by mouth in the morning. 023 2024 Discontinued(D ose adjustment) Mometasone Furoate (Asmanex HFA) 100 MCG/ACT aerosol INHALE 2 PUFFS BY MOUTH TWICE DAILY. RINSE MOUTH AFTER USING. 13 g 3 024 2024 Discontinued(R eorder (will not trigger notification to Pharmacy)) insulin lispro protamine-insuli n lispro (HumaLOG Mix 75-25) (75-25) 100 UNIT/ML injectionIndicat ions:Type 2 diabetes mellitus treated with insulin ([facility]) INJECT 40 UNITS SUBCUTANEOUSLY EVERY [...] 05/2010, 10 yr repeat. Upcoming app[facility] [place] [facility] -Mammogram: [facility] 14 August 2021 -Bone density: ordered April 2023 Assessment & Plan (05/17/2023 2:03 PM EDT): -Pap: last 2011. Pt previously declined repeat pap d/t discomfort with speculum exams. Discussed self insertion of speculum vs blind HPV swab. Pt will consider and may discuss at subsequent appt -Colonoscopy: 05/2010, 10 yr repeat. Upcoming app[facility] -Bone density: ordered April 2023 Assessment & Plan (01/09/2023 6:01 PM EST): -Pap: last 2011. Pt previously declined repeat pap d/t discomfort with speculum exams. Discussed self insertion of speculum vs blind HPV swab. Pt will consider and may discuss at subsequent appt -Colonoscopy: 05/2010, 10 yr repeat. Upcoming appt with [facility] -[facility]ammogram: [facility] 14 August 2021 Assessment & Plan (10/03/2022 7:36 AM EDT): -Pap: last 2011. Pt previously declined repeat pap d/t discomfort with speculum exams. Discussed self insertion of speculum vs blind HPV swab. Pt will consider and may discuss at subsequent appt -Colonoscopy: 05/2010, 10 yr repeat. Upcoming app[facility] with [facility] -[facility]amm[facility]: [facility] 14 August 2021 Assessment & Plan (07/09/2022 8:05 AM EDT): -Pap: last 2011. Pt previously declined repeat pap d/t discomfort with speculum exams. Discussed self insertion of speculum vs blind HPV swab. Pt will consider and may discuss at subsequent appt -Colonoscopy: 05/2010, 10 yr repeat. Upcoming app[facility] with [facility] -[facility]ammogram: [facility] 14 August 2021 Diabetic gastroparesis (CMS/HCC) 12/20/2014 [...] 2022 WNL Eye exam: reports previous at [facility], referral to [facility] Eye Care placed 07/09/22 PNA: [...] nutrition, and medications. Current med regimen (through [facility]) Tresiba 70 units Humalog 22 units [...] insulin she is using. - Referral to [facility] CDTM team - ED precautions [...] HGBA1C 9.7 (A) 07/06/2022 -BG in office [facility], improved to 400s s/p 10 units [...] Date Resolved Date COVID-19 09/30/2022 10/01/2022 Encounters * This document contains information received from the source organization and may not represent a complete record from that organization. Date Type Department Care Team Description 07/30/2024 Telephone [facility] PED[facility] [address] [place] [address] Luciana Zuniga FNP Medication Question 07/23/2024 Telephone [facility] MEDICINE [address] [place] [phone] Luciana Zuniga FNP No Show 07/17/2024 Telephone [facility] [address] [place] [address] Luciana Zuniga FNP Schedule follow-up 07/17/2024 Travel 07/15/2024 Travel 07/10/2024 Telephone [facility] [address] [place] [address] Luciana Zuniga FNP 07/06/2024 10:00 AM EDT Office Visit [facility] [address] [place] [address] Luciana Zuniga FNP Type 2 diabetes mellitus with hyperglycemia, with long-term current use of insulin (CMS/[facility]) (Primary Dx); Healthcare maintenance; Essential hypertension; Recurrent major depressive disorder, remission status unspecified (CMS/HCC); Irritable bowel syndrome, unspecified type; Moderate persistent asthma without complication; Gait instability 07/06/2024 Patient Outreach [address] [address] Luciana Zuniga FNP Care Coordination ([facility] outreach for [facility] housing search-referral completed ) 07/06/2024 Travel 07/03/2024 Telephone [facility] [address] [place] [address] Luciana Zuniga FNP Chart Prep 06/12/2024 Orders Only GENERIC EXTERNAL DATA DEPARTMENT Provider, Generic External Data 05/14/2024 Refill [facility] [address] [place] [address] Luciana Zuniga FNP Type 2 diabetes mellitus without complication, unspecified whether long term care phlebotomist insulin use (CMS/HCC) 05/03/2024 Refill [facility] [address] [place] [address] Luciana Zuniga FNP Mixed hyperlipidemia from Last 3 Months Immunizations Immunization Administration [...] with others, in a hotel, in [place], living outside on the street, on a [...] Upcoming Encounters Date Type Department Care Team ([facility] st Contact Info) Description 10/12/2024 11:15 AM EDT Office Visit [facility] MED & PEDS [address] [place] [address] Luciana Zuniga, [employer] [address] [place] [address] Health Maintenance Due Date Last Done Comments [...] 2023 06/23/2022, 03/10/2021, 07/29/2020, Additional history exists Diabetes: Urine Protein Screening 01/04/2024 01/03/2023, 10/01/2021, 01/21/2021 Lipid Panel 01/04/2024 01/03/2023, 09/14, 01/21/2021, Additional history exists Diabetes: Hemoglobin A1C 10/06/2024 025, 01/06/2024, 10/20/2023, Additional history exists Influenza Vaccine (Season Ended) 2024 01/03/2023, 01/01/2016, 10/20/2012 Tobacco Screening 11/10/2024 11/11/2023 Depression Screening 07/06/2025 [...] Associated Diagnosis Comments GLUCOSE, WHOLE BLOOD Routine 07/11/2024 11:39 AM EDT HELICOBACTER PYLORI, UREA BREATH TEST Routine 07/11/2024 10:36 AM EDT POCT GLUCOSE Routine 07/06/2024 11:00 AM EDT Type 2 diabetes mellitus with hyperglycemia, with long-term current use of insulin ([facility]) POCT GLYCATED HEMOGLOBIN, TOTAL Routine 07/06/2024 10:59 AM EDT Type 2 diabetes mellitus with hyperglycemia, with long-term current use of insulin ([facility]) GLUCOSE, WHOLE BLOOD Routine 06/12/2024 [...] Maintenance Results * (ABNORMAL) Glucose, Whole Blood (07/11/2024 11:39 AM EDT) Only the most recent of2 resultswithin the time period is included. Glucose, Whole Blood 121(H) 60 - 115 mg/dL [facility] Comment:METER #: [id number] 5Testing performed in the Endocrinology Department [address] , [address], [facility]. 07/11/2024 11:3 9 AM EDT 07/11/2024 11:43 AM EDT Generic External Data Provider LAB BLOOD ORDERAB LES Final Result Performing Organization Address [facility] Co de Phone Number [facility] [address] [place] [phone] * Helicobacter pylori, Urea Breath Test (07/11/2024 10:36 AM EDT) H. pylori Breath Test Negative Negative [facility] Comment:Antimicrobials, prot on pump inhibitors and bismuthpreparations are known to suppress H. pylori. Ingestingthese medications within two weeks prior to performing thebreath test may produce negative test results. A positiveresult is still clinically valid. 07/11/2024 10:3 6 AM EDT 07/11/2024 11:52 AM EDT Generic External Data Provider LAB BLOOD ORDERAB LES Final Result Performing Organization Address [facility] Co de Phone Number [facility] [address] [place] [phone] * (ABNORMAL) POCT Glucose (07/06/2024 11:00 AM EDT) Glucose Blood, POC 223(A) 60 - 200 mg/dL QC Media Lot # [id number] Lot# Expiration Date , Blood Capillary blood specimen / Unknown 07/06/2024 11:00 AM EDT Luciana Zuniga [employer] POINT OF CARE TEST ENTER/EDIT ORDERABLES Final Result * (ABNORMAL) POCT HGB A1C (07/06/2024 10:59 AM EDT) Hemoglobin A1C 11.5(A) 4.0 - 6.0 % QC Media Lot # [id number] Lot# Expiration Date [id number] Blood 07/06/2024 10:5 9 AM EDT Luciana Zuniga [facility] POINT OF CARE TEST ENTER/EDIT ORDERABLES Edited Result - Final * Albumin, Random Urine W/Creatinine (01/03/2023 11:40 AM EST) Pathologist [facility] Creatinine, Urine 146.72 mg/dL [facility] Microalbumin Urine 35.0 mg/L [facility] Microalbum Creatinine Ratio Ur 23.8 <30 ug/mg cr [facility] Comment:Albumin/Creatinine R atio Reference Ranges: Normal: < 30 ug/mg creatinine Microalbuminuria: 30 - 300 ug/mg creatinineClinical Albuminuria: > 300 ug/mg creatinine Urine 01/03/2023 11:4 0 AM EST 01/03/2023 2:52 PM EST Luciana Zuniga [facility] LAB URINE ORDERABLES Final Res ult [facility] [address] [place] [phone] * Hepatitis C Viral RNA, Quantitative, Real-Time PCR (01/03/2023 11:31 AM EST) [facility] Hepatitis C Viral Load <15 NOT DETECTED NOT DETECTED IU/mL [facility] HCV Log PCR <1.18 NOT DETECTED NOT DETECTED Log IU/mL [facility] Comment:This test was perfor med using Real-Time Polymerase ChainReaction.Reportable Range: 15 IU/mL to 100,000,000 IU/mL(1.18 Log IU/mL to 8.00 Log IU/mL).The analytical performance characteristics of thisassay have been determined by [employer].The modifications have not been cleared or approved bythe FDA. This assay has been validated pursuant to theCLIA regulations and is used for clinical purposes.For more information on this test, go to:http://education.[employer]/faq/TGF94r9(This link is being provided for informational/educational purposes only.)THIS TEST WAS PERFORMED AT:[facility] [address] [id number] RIVAS MD Blood 01/03/2023 11:3 1 AM EST 01/03/2023 2:37 PM EST Luciana Zuniga [facility] LAB BLOOD ORDERABLES Final Res ult Performing Organization Address City/[facility]/ZIP Co de Phone Number [facility] [address] [place] [phone] * HIV-1/2 Antigen and Antibodies, Fourth Generation, with Reflexes (01/03/2023 11:31 AM EST) HIV AB/AG Nonreactive Nonreactive [facility] Comment:HIV-1 p24 Ag and/or HIV-1/HIV-2 Ab not detected.A test result that is nonreactive does not exclude thepossibility of exposure to or infection with HIV-1 and/orHIV-2. Nonreactive results in this assay for individualswith prior exposure to HIV-1 and/or HIV-2 may be due toantigen and antibody levels that are below the limit ofdetection of this assay.The [employer] HIV Ag/Ab Combo assay result andsupplemental assay results should be interpreted inconjunction with the patient's clinical presentation,history and other laboratory results. If the results areinconsistent with clinical evidence, additional testing issuggested to confirm the result. Blood Venous blood specimen / Unknown 01/03/2023 11:31 AM EST 01/03/2023 2:37 PM EST Luciana Liudmilamishel [facility] LAB BLOOD ORDERABLES Final Res ult Performing Organization Address City/[facility]/ZIP Co de Phone Number [facility] [address] [place] [phone] * Lipid Panel, Standard (01/03/2023 11:31 AM EST) Triglycerides 149 <150 mg/dL [facility] Comment:Desirable Triglyceri de: less than 150 mg/dLBorderline High Triglyceride 150-199 mg/dLHigh Triglyceride: 200-499 mg/dLVery High Triglyceride: greater than or equal to 5OO mg/dL Cholesterol 172 <200 mg/dL [facility] Comment:Desirable Cholestero l: less than 200 mg/dLBorderline High Cholesterol: 200-239 mg/dLHigh Cholesterol: greater than 239 mg/dL LDL Cholesterol Calculated 90 <100 mg/dL [facility] Comment:Desirable LDL: less than 100 mg/dLNear Optimal/Above Optimal LDL: 110- 129 mg/dLBorderline High LDL: 130-159 mg/dLHigh LDL: 160-189 mg/dLVery High LDL: greater than or equal to 190 mg/dL HDL Cholesterol 53 >40 mg/dL [facility] Comment:Desirable HDL: great er than 40 mg/dL Note: This HDL assay may give artificially low results in patients with liver disease. Blood Venous blood specimen / Unknown 01/03/2023 11:31 AM EST 01/03/2023 2:37 PM EST Luciana Zuniga [employer] LAB BLOOD ORDERABLES Final Res ult [facility] [address] [place] [phone] * Mammography Report 1 (08/28/2021 1:30 PM EDT) Anatomical Region Laterality Modality Breast Bilateral Mammography 08/28/2021 1:30 PM EDT Narrative 08/31/2021 4:01 PM EDT Refer to the Notes tab for result details [facility] Procedure: Mammography Report 1 Procedure Note Provider, MD Diallo - 05/09/2022 Refer to the Notes tab for result details [facility] Procedure: Mammography Report 1 Mela Ortega MESH MAN IMG BI PROCEDURES Final Result from Last 3 Months or Most Recently Relevant to Health Maintenance Insurance [facility] C3 Care Teams [employer] Relationship Specialty Start Date End Date Luciana Zuniga FNP [address] [place] [phone] PCP - General Family Medicine 10/12/21
== END 2024-07-31 15:29 | disposition home or self-care (01) ==
LOC: HO.ENCR 14:01
PROVIDERS: PCP Registered Nurse; Visit Provider Registered Nurse Diabetes Educator
DX: E11.65 Type 2 diabetes mellitus with hyperglycemia (principal)

== ENCOUNTER → 2024-07-31 14:00 | Outpatient (BNVA) | payer MEDICAID, SELFPAY | PROVIDERS: PCP Registered Nurse; Visit Provider Registered Nurse Diabetes Educator | DX: E11.65 Type 2 diabetes mellitus with hyperglycemia (principal) | CPT/HCPCS: 99211 ==

== ENCOUNTER 2024-10-27 13:45 | Emergency (ER) | payer MEDICAID, SELFPAY ==
--- NOTE | 2024-10-27 14:08 | ED_ITS ---
HPI - General Adult General Chief complaint: Abdominal Pain Stated complaint: black tounge spit is black Time Seen by Provider: 10/27/24 14:19 History of Present Illness HPI narrative: 64-year-old female with a history of diabetes. Status post cholecystectomy many years ago. History irritable bowel syndrome history of fibromyalgia larger in size has been on Pepto-Bismol for GERD. Shunt complaining of tongue looking a little more black color. Also having some diarrhea. Describes the diarrhea as brown. No blood. No fever no chills. Had abdominal pain from time to time bloating which is chronic. Not new. No fever no chills no change in weight. No diaphoresis. No recent antibiotics. No recent travel. Patient is from home. Related Data Home Medications ?Medication ?Instructions ?Recorded ?Confirmed simethicone 180 mg capsule (Gas 180 mg PO QID PRN 11/1512/06/19 Relief (simethicone)) blood sugar diagnostic (FreeStyle #10 ea 01/06/24 Lite Strips) flash glucose sensor (FreeStyle #1 ea 01/06/24 Lorenza 2 Sensor kit) gabapentin 100 mg capsule 100 mg PO TID 01/06/24 lancets 33 gauge (TRUEplus Lancets) #100 ea 01/06/24 loratadine 10 mg tablet 10 mg PO QAM PRN allergies 1 03/07/23 metformin 500 mg tablet,extended 1,000 mg PO QAM 01/05 release 24 hr montelukast 10 mg tablet 10 mg PO QPM 01/06/24 pen needle, diabetic 32 gauge x #1,200 ea 01/06/24 (Pentips Pen Needle) rosuvastatin 40 mg tablet 40 mg PO BEDTIME 01/06/24 alcohol swabs (Alcohol Prep Pads) pad topical TID 02/15 03/10 fenofibrate 160 mg tablet 160 mg PO QAM 03/06/24 dulaglutide 1.5 mg/0.5 mL 1.5 mg subcut QWEEK 03/15/24 subcutaneous pen injector (Trulicity) insulin lispro 200 unit/mL (3 mL) See Rx Instructions subcut TIDWMEAL 06/26/24 subcutaneous pen (Humalog KwikPen U-200 Insulin) valsartan 80 1 tab PO DAILY 07/11/24 mg-hydrochlorothiazide 12.5 mg tablet Previous Rx's ?Medication ?Instructions ?Recorded lidocaine 5 % topical patch 1 patch topical DAILY #15 ea 10/23/20 (Lidoderm) cyclobenzaprine 10 mg tablet 10 mg PO Q8H Muscle spasm #14 tabs 11/13/20 lidocaine HCl 4 % topical cream 1 appl topical BID PRN pain #120 11/13/20 (Aspercreme (lidocaine HCl)) grams blood-glucose sensor (FreeStyle #2 ea 03/15/24 Lorenza 3 Plus Sensor device) insulin degludec 200 unit/mL (3 80 unit (0.4 mL) subcu t BEDTIME 30 03/15/24 mL) subcutaneous pen (Tresiba days #12 mL FlexTouch U-200 insulin) cholecalciferol (vitamin D3) 50 50 mcg PO DAILY #90 ca ps 06/18/24 mcg (2,000 unit) capsule linaclotide 290 mcg capsule 290 mcg PO QAM #30 caps (Linzess) dexlansoprazole 60 mg 60 mg PO QPM #90 caps capsule,biphase delayed release (Dexilant) famotidine 20 mg tablet 20 mg PO BID 90 days #180 ta bs 08/22/24 Allergies Allergy/AdvReac Type Severity Reaction Status Date / Time Penicillins (PENICILLINS) Allergy Unknown UNKNOWN Verified 10/27/24 14:13 HIGH BLOOD PRESSURE MED Allergy Unknown ASTHMA Uncoded 10/27/24 14:13 Review of Systems 2 Review of Systems: Positive diarrhea Positive black stool Yes all other systems are reviewed and are negative PMFSH Past Medical History Attestation statement: The following information was validated with the patient. Medical History Uncontrolled diabetes mellitus with hyperglycemia IBS (irritable bowel syndrome) H. pylori infection High cholesterol Hypertension Diabetes Asthma Surgical History History of cholecystectomy History of tubal ligation History of esophagogastroduodenoscopy (EGD) (~05/2010) Hx of colonoscopy (~05/2010) Family History Family History Father Heart disease Mother Cancer Diabetes HTN (hypertension) Sister Diabetes Brother Heart disease Maternal Grandmother Cancer Paternal Grandmother Cancer Social History Social History Alcohol intake: current Alcohol intake frequency: does not drink Smoked in Last 30 Days: No Use of substances other than those prescribed or required for medical reasons: No Advance Directives: No Advance Directives Information Provided: No Do you have a plan to hurt others: No Plan Patient : No Physical Exam ED Exam Exam: Appearance: Alert. Oriented X3. No acute distress. Eyes: Pupils equal, round and reactive to light. ENT: Pharynx normal. Neck: Normal inspection. Neck supple. No lymph nodes noted. No crepitus CVS: Normal heart rate and rhythm. Pulses normal. Normal S1 and S2 Respiratory: No respiratory distress. Breath sounds normal. No Wheezing. No rales Abdomen: Soft and nontender. No rigidity. No distention. good BS x4 Skin: Skin warm and dry. Normal skin color. Normal skin turgor. Extremities: No lower extremity edema. Neurovascular intact to all extremities. No Lacerations. No Rash Neuro: Oriented X 3. No motor deficit. No sensory deficit. Moving all extermities. No slurred speech Vital Signs: Vital Signs - 24 hr 10/27/24 14:09 10/27/24 16:29 Temperature 98 F 97.6 F Pulse Rate 77 69 Respiratory Rate 18 16 Blood Pressure 156/72 H 137/64 Pulse Oximetry 98 97 Oxygen Delivery Method Room Air Room Air BMI result Body Mass Index 36.7 Course Course Course Narrative: Rapid medical examination performed in triage by Bhumi Pina PA-C. Patient is a 64 year old assigned female at presenting to the emergency department with a black tongue. Patient states that every day she takes bismuth, pepto, and iron supplements. Detailed physical exam and review of systems are deferred to the transit planning director. Labs ordered. Patient placed back in the waiting room pending room availability and results. Medical Decision Making Medical Decision Making MDM Narrative: Patient well-appearing no acute distress. She has no abdominal pain at this time. Her white count is normal. Her abdominal exam is benign. Her hemoglobin is baseline. She is in no distress. There is no anion gap no signs to suggest patient has DKA her sugar is 159 her LFTs are normal. Patient has light black discoloration to her posterior tongue question if this is secondary to bismuth from the Pepto-Bismol. Will have patient follow-up on an outpatient basis. She is in no distress. We did offer her a CT scan for further delineate her abdominal pain but she refused for now. Explained to patient worsened pain returned. In stable condition Differential Diagnosis Differential Diagnoses: The differential diagnosis associated with the presentation includes Diverticulitis, obstruction, abscess, UTI, chronic abdominal pain, reaction to Pepto-Bismol Admission/Observation Tolerating p.o. Lab Data MDM Lab Attestation statement: I reviewed the patient's lab results. 10/27/24 14:24 10/27/24 14:24 Labs: Lab Results 10/27/24 Range/Units 14:24 WBC 9.0 (4.8-10.8) X10*3/uL RBC 4.51 (4.20-5.50) X10*6/uL Hgb 13.0 (12.0-16.0) g/dl Hct 38.7 (37.0-47.0) % MCV 85.8 (80.0-98.0) fL MCH 28.8 (27.0-33.0) pg MCHC 33.6 (31.0-35.0) g/dl RDW 12.5 (11.0-16.0) % Plt Count 261 (160-400) X10*3/uL MPV 10.8 (9.4-12.3) fL Immature Gran % (Auto) 0.3 (0.0-0.4) % Neut % (Auto) 44.4 L (45-73) % Lymph % (Auto) 46.7 H (20-40) % Divide % (Auto) 5.4 (2-11) % Eos % (Auto) 2.9 (0-4) % Baso % (Auto) 0.3 (0-2) % Lymph # (Auto) 4.2 (1.2-4.9) X10*3/uL Divide # (Auto) 0.5 (0.1-1.2) X10*3/uL Eos # (Auto) 0.3 (0.0-0.4) X10*3/uL Baso # (Auto) 0.0 (0.0-0.2) X10*3/uL Abs Immat Gran (auto) 0.03 (0.00-0.03) X10*3/uL Absolute Neuts (auto) 4.0 (2.0-8.3) x10*3/uL Absolute Nucleated RBC 0.000 (0.0-0.012) X10*3/uL Nucleated RBC % (auto) 0.0 (0.0-0.2) /100WBC PT 11.8 (10.9-12.4) SEC INR 1.0 (0.9-1.1) Sodium 139 (135-145) mmol/L Potassium 3.9 (3.3-5.1) mmol/L Chloride 105 (96-108) mmol/L Carbon Dioxide 24 (22-29) mmol/L Anion Gap 14 (12-20) BUN 15 (9-16) mg/dL Creatinine 0.89 (0.5-1.4) mg/dL Estim Creat Clear Calc 75.7 Estimated GFR > 60 Random Glucose 159 H (60-115) mg/dL Calcium 9.6 (8.4-10.2) mg/dL Magnesium 1.8 (1.6-2.6) mg/dL Total Bilirubin 0.3 (0.0-1.0) mg/dL AST 19 (5-31) U/L ALT 16 (0-31) U/L Alkaline Phosphatase 73 (39-117) U/L Total Protein 7.4 (6.5-8.0) g/dL Albumin 4.2 (3.5-5.0) g/dL Independent Historian Additional history obtained per patient's family External Record Review External record reviewed: Outpatient record Chronic Conditions Patient?s care impacted by: Diabetes Social Determinants Patient?s care significantly limited by Social Determinants of Health including: Problems related to primary support group Discharge Plan Discharge Clinical Impression: Diarrhea Patient Disposition: Home, Self-Care Instructions: Acute Diarrhea (ED) Prescriptions: No Action cholecalciferol (vitamin D3) 50 mcg (2,000 unit) capsule 50 mcg PO DAILY Qty: 90 3RF Linzess 290 mcg capsule 290 mcg PO QAM Qty: 30 4RF dexlansoprazole [Dexilant] 60 mg capsule,biphase delayed releas 60 mg PO QPM Qty: 90 0RF famotidine 20 mg tablet 20 mg PO BID 90 Days Qty: 180 0RF lidocaine [Lidoderm] 5 % adhesive patch,medicated 1 patch topical DAILY Qty: 15 0RF Rx Instructions: leave on most painful area for up to 12 hrs cyclobenzaprine 10 mg tablet 10 mg PO Q8H Qty: 14 0RF lidocaine HCl [Aspercreme (lidocaine HCl)] 4 % cream 1 appl topical BID PRN (Reason: pain) Qty: 120 0RF simethicone [Gas Relief (simethicone)] 180 mg capsule 180 mg PO QID PRN fenofibrate 160 mg tablet 160 mg PO QAM alcohol swabs [Alcohol Prep Pads] Pads, Medicated topical TID (DME) FreeStyle Lorenza 3 Plus Sensor Device See Rx Instructions .ROUTE .MEDSUPPLY Qty: 2 11RF Rx Instructions: continous glucose sensor, re apply every 15 days insulin degludec [Tresiba FlexTouch U-200] 200 unit/mL (3 mL) insulin pen 80 unit subcut BEDTIME 30 Days Qty: 12 11RF valsartan-hydrochlorothiazide 80-12.5 mg tablet 1 tab PO DAILY (DME) FreeStyle Lorenza 2 Sensor Kit See Rx Instructions .ROUTE Q2W Qty: 1 Rx Instructions: As directed (DME) lancets [TRUEplus Lancets] 33 gauge misc See Rx Instructions .ROUTE .MEDSUPPLY Qty: 100 Rx Instructions: As directed metformin 500 mg tablet extended release 24 hr 1,000 mg PO QAM gabapentin 100 mg capsule 100 mg PO TID (DME) pen needle, diabetic [Pentips Pen Needle] 32 gauge x 5/32 needle See Rx Instructions .ROUTE DAILY Qty: 1200 Rx Instructions: As directed (DME) FreeStyle Lite Strips Strip See Rx Instructions .ROUTE .MEDSUPPLY Qty: 10 Rx Instructions: As directed loratadine 10 mg tablet 10 mg PO QAM PRN (Reason: allergies) rosuvastatin 40 mg tablet 40 mg PO BEDTIME montelukast 10 mg tablet 10 mg PO QPM Trulicity 1.5 mg/0.5 mL pen injector 1.5 mg subcut QWEEK Humalog KwikPen Insulin 200 unit/mL (3 mL) insulin pen See Rx Instructions subcut TIDWMEAL Rx Instructions: 20 units before breakfast and lunch 18 units before supper Referrals: Phalen,Luciana, TRANSIT DEPARTMENT CLERK [Primary Care Provider, Family Practice] Print Language: Andorran
[2024-10-27 14:09] VITALS: BP 156/72; PULSE 77; RESP 18; TEMP 36.6; O2SAT 98; BMI 36.7
[2024-10-27 14:28] LABS: MANUAL DIFF FLAG NO
[2024-10-27 14:30] LABS: Hematocrit 38.7 % (37.0-47.0); Hemoglobin 13.0 g/dl (12.0-16.0); Imm Gran Abs Auto 0.03 X10*3/uL (0.00-0.03); Imm Gran Pct Auto 0.3 % (0.0-0.4); Lymphocytes Absolute Auto 4.2 X10*3/uL (1.2-4.9); Mean Corpuscular HGB Conc 33.6 g/dl (31.0-35.0); Mean Corpuscular Hemoglobin 28.8 pg (27.0-33.0); Mean Corpuscular Volume 85.8 fL (80.0-98.0); NRBC Abs Auto 0.000 X10*3/uL (0.0-0.012); NRBC Pct Auto 0.0 /100WBC (0.0-0.2); Platelet Count 261 X10*3/uL (160-400); Red Blood Count 4.51 X10*6/uL (4.20-5.50); White Blood Count 9.0 X10*3/uL (4.8-10.8)
[2024-10-27 14:40] LABS: INTERNATIONAL NORM RATIO 1.0 (0.9-1.1); Prothrombin Time 11.8 SEC (10.9-12.4)
[2024-10-27 14:46] LABS: Alanine Aminotransferase 16 U/L (0-31); Albumin Level 4.2 g/dL (3.5-5.0); Alkaline Phosphatase 73 U/L (39-117); Anion Gap 14 (12-20); Aspartate Amino Transferase 19 U/L (5-31); Blood Urea Nitrogen 15 mg/dL (9-16); Calcium 9.6 mg/dL (8.4-10.2); Carbon Dioxide 24 mmol/L (22-29); Chloride 105 mmol/L (96-108); Creatinine Clr Calc Pharmacy 75.7; Estimated Glomerular Filt Rate > 60; Magnesium 1.8 mg/dL (1.6-2.6); Potassium 3.9 mmol/L (3.3-5.1); Sodium 139 mmol/L (135-145); Total Protein 7.4 g/dL (6.5-8.0)
[2024-10-27 16:29] VITALS: BP 137/64; PULSE 69; RESP 16; TEMP 36.4; O2SAT 97
--- OUTSIDE RECORDS SUMMARY | 2024-10-27 16:47 | XMS_ITS | Encounter Summary ---
Author Organization [employer] Address [address] [place] [address] [address] Care Team Providers Care Digital Media Representative Name Role Phone Luciana Zuniga Primary Care Provider [phone] Reason for Visit * Reason Comments Med Refill Encounter Details Date Type Department Care Team (Late st Contact Info) Description 10/24/2024 Refill [facility] [address] [place], [place] [phone] Luciana Zuniga FNP [address] [place], [place] [phone] Type 2 diabetes mellitus without complications (CMS/HCC) Social History Tobacco Use Types Packs/Day Years [...] with others, in a hotel, in a longterm, living outside on the street, on a [...] Care Team (Late st Contact Info) Description 12/17/2024 9:00 AM EST Office Visit [facility] [address] [place] [address] Luciana Zuniga FNP [address] [place] [address] documented as of this encounter Visit Diagnoses Diagnosis Type 2 diabetes mellitus without complications (CMS/HCC) documented in this encounter Additional Health Concerns Assessment Noted Time PHQ-9 Depression Total Score: 8 07/07/19 25 11:34 AM EDT documented as of this encounter Care Teams Digital Media Representative Relationship Specialty Start Date End Date Luciana Zuniga FNP [address] [place] [phone] PCP - General Family Medicine 10/12/21 documented as of this encounter
--- OUTSIDE RECORDS SUMMARY | 2024-10-27 16:47 | XMS_ITS | Encounter Summary ---
Author Organization [employer] Address [address] [place] [address] 7[place], [place] [address] Care Team Providers Care Valve Lapper Name Role Phone Luciana Zuniga Primary Care Provider [phone] Reason for Visit * Reason Onset Date Comments Appointment Request 10/16/2024 Encounter Details Date Type Department Care Team ([facility] st Contact Info) Description 10/16/2024 Telephone [facility] [address] [place] [address] Luciana Zuniga FNP [address] [place], [place] [phone] Appointment Request Social History Tobacco Use Types [...] with others, in a hotel, in a senior living, living outside on the street, on a [...] t he electric, gas, oil or water [employer] threatened to shut off services in your [...] encounter Miscellaneous Notes * Telephone Encounter - Declan Rizzo - 10/16/2024 2:10 PM EDT Tc from pt requesting to r/s apt missed on 10/12. Contact pt at [phone] documented in this encounter Plan of Treatment Upcoming Encounters Date Type Department Care Team (Late st Contact Info) Description 12/17/2024 9:00 AM EST Office Visit [facility] [address] [place] [address] Luciana Zuniga FNP [address] [place] [address] documented as of this encounter Visit Diagnoses Not on filedocumented in this encounter Additional Health Concerns Assessment Noted Time PHQ-9 Depression Total Score: 8 07/07/19 25 11:34 AM EDT documented as of this encounter Care Teams Valve Lapper Relationship Specialty Start Date End Date Luciana Zuniga FNP [address] [place] [address] PCP - General Family Medicine 10/12/21 documented as of this encounter
--- OUTSIDE RECORDS SUMMARY | 2024-10-27 16:47 | XMS_ITS | Encounter Summary ---
Author Organization [employer] Address [address] [facility] [address] [place] [address] Care Team Providers Care Flake Cutter Operator Name Role Phone Luciana Zuniga Primary Care Provider [phone] Encounter Details Date Type Department Care Team (Late st Contact Info) Description 06/08/2023 Orders Only [facility] [address] [place], [place] [phone] Luciana Zuniga FNP [address] [place], [place] [phone] Social History Tobacco Use Types Packs/Day Years [...] Upcoming Encounters Date Type Department Care Team ([facility] st Contact Info) Description 12/17/2024 9:00 AM EST Office Visit [facility] [address] [place], [place] [phone] Luciana Zuniga, MEDICAL INSTRUMENT TECHNICIAN [address] [place], [place] [phone] documented as of this encounter Procedures Procedure [...] Whole Blood 296(H) 60 - 115 mg/dL [facility] Comment:METER #: [id number] 5Testing performed in the Endocrinology Department [address] , [address], [facility]. 03/15/2024 3:16 PM EST 03/15/2024 3:22 PM EST Generic External Data Provider LAB BLOOD ORDERAB LES Final Result Performing Organization Address [facility] Co de Phone Number [facility] [address] [place] [phone] * Helicobacter pylori, Urea Breath Test (01/06/2024 2:08 PM EST) H. pylori Breath Test Positive Negative [facility] Comment:Antimicrobials, prot on pump inhibitors and bismuthpreparations are known to suppress H. pylori. Ingestingthese medications within two weeks prior to performing thebreath test may produce negative test results. A positiveresult is still clinically valid. 01/06/2024 2:08 PM EST 01/09/2024 3:36 PM EST Generic External Data Provider LAB BODY FLUIDS A ND STOOLS ORDERABLES Final Result Performing Organization Address [facility] Co de Phone Number [facility] [address] [place] [phone] * (ABNORMAL) VITAMIN D 25-OH (D2 AND D3) (01/06/2024 11:37 AM EST) Vitamin D, 25-OH, D2 <4 ng/mL [facility] Comment:This test was nitish ped and its analytical performancecharacteristics have been determined by [employer] [facility] [place], [place]. It hasnot been cleared or approved by the U.S. Food and DrugAdministration. This assay has been validated pursuantto the CLIA regulations and is used for clinicalpurposes.THIS TEST WAS PERFORMED AT:[employer] [place] [address]EBGKIFLGLORIA SURESH MD,PHD Vitamin D, 25-OH, D3 21 ng/mL [facility] Comment:This test was develo ped and its analytical performancecharacteristics have been determined by [employer] [place], [place]. It hasnot been cleared or approved by the U.S. Food and DrugAdministration. This assay has been validated pursuantto the CLIA regulations and is used for clinicalpurposes. Vitamin D, 25-OH, Total 21(A) 30 - 100 ng/mL [facility] Comment:Vitamin D, 25-Hydrox y reports [...] = 30 ng/mL.For additional information, please refer tohttp://education.[employer]/faq/NTY991(This link is being provided for informational/educational purposes only.) 01/06/2024 11:3 7 AM EST 01/06/2024 11:37 AM EST us Generic External Data Provider LAB BLOOD ORDERAB LES Final Result [facility] [address] [place] [address] [phone] * Tissue Transglutaminase Antibody, IgA (01/06/2024 11:37 AM EST) Transglutaminase IgA <1.0 U/mL [facility] Comment:Value Interpretation ----- <15.0 Antibody not detected> or = 15.0 Antibody detectedTHIS TEST WAS PERFORMED AT:[employer] [place] [id number] RIVAS MD 01/06/2024 11:3 7 AM EST 01/06/2024 11:37 AM EST us Generic External Data Provider LAB BLOOD ORDERAB LES Final Result Performing Organization Address [facility] Co de Phone Number [facility] [address] [place] [phone] * Vitamin B12 (Cobalamin) and Folate Panel, Serum (01/06/2024 11:37 AM EST) Vitamin B12 432 200 - 900 pg/mL [facility] Comment:NORMAL 200-900 PG/ML INDETERMINATE 160-199 PG/ML DEFICIENT < 160 PG/ML Folate 11.5 > or = 4.0 ng/mL [facility] Comment:Reference Values:> o r = 4.0 ng/mL< 4.0 ng/mL suggests folate deficiency Methotrexate, aminopterin and folinic acid(leucovorin) are chemotherapeutic agents whose molecularstructures are similar to folate; therefore, the Architectfolate assay cannot be used for patients using these drugs. 01/06/2024 11:3 7 AM EST 01/06/2024 11:37 AM EST us Generic External Data Provider LAB BLOOD ORDERAB LES Final Result Performing Organization Address [facility] Co de Phone Number [facility] [address] [place] [phone] * Lipase (01/06/2024 11:37 AM EST) Lipase 21 8 - 78 U/L [facility] 01/06/2024 11:3 7 AM EST 01/06/2024 11:37 AM EST Generic External Data Provider LAB BLOOD ORDERAB LES Final Result Performing Organization Address [facility] Co de Phone Number [facility] [address] [place] [phone] * Hepatic Function Panel (01/06/2024 11:37 AM EST) Bilirubin, Total 0.2 0.0 - 1.0 mg/dL [facility] Bilirubin, Direct <0.2 0.0 - 0.5 mg/dL [facility] Aspartate Amino Transferase 18 5 - 31 U/L [facility] Alanine Aminotransferase 18 0 - 31 U/L [facility] Total Protein 7.2 6.5 - 8.0 g/dL [facility] Albumin Level 4.1 3.5 - 5.0 g/dL [facility] Alkaline Phosphatase 83 39 - 117 U/L [facility] 01/06/2024 11:3 7 AM EST 01/06/2024 11:37 AM EST Generic External Data Provider LAB BLOOD ORDERAB LES Final Result Performing Organization Address [facility] de Phone Number [facility] [address] [place] [phone] * (ABNORMAL) Hemoglobin A1c (01/06/2024 11:37 AM EST) Hemoglobin A1c 12.2(H) <6.0 % [facility] Comment:Hemoglobin A1C Refer ence Range Adults: 4.8 - 6.0 % Non diabetic: < 6.0 % Goal: < 7.0 %Additional Action Suggested: > 8.0 %Note: Hemoglobin A1c results are invalid for patients with abnormal amounts of HbF. Blood transfusions may impact the HbA1c concentration in the patient sample. Estimated Average Glucose 303 mg/dL [facility] Comment:eAG = Estimated ave rage glucose which is %A1C expressed asaverage glucose, using the formula of the E4O-EmberrdEhgkfek Glucose study (ADAG), Diabetes Care, Vol.31,#8,2007 01/06/2024 11:3 7 AM EST 01/06/2024 11:37 AM EST us Generic External Data Provider LAB BLOOD ORDERAB LES Final Result [facility] [address] [place] [phone] documented in this encounter Visit Diagnoses Not on filedocumented in this encounter Additional Health Concerns Assessment Noted Time PHQ-9 Depression Total Score: 0 10/02/19 23 2:07 PM EDT documented as of this encounter Care Teams Flake Cutter Operator Relationship Specialty Start Date End Date Luciana Zuniga FNP [address] [place] [address] PCP - General Family Medicine 10/12/21 documented as of this encounter
--- OUTSIDE RECORDS SUMMARY | 2024-10-27 16:47 | XMS_ITS | Clinical Summary ---
Author Organization [employer] Address [address] [facility] [facility] [address] [place] [address] Care Team Providers Care Chief Meteorologist Name Role Phone Luciana Zuniga NETO Primary Care Provider [phone] Allergies No known active allergies Medications * This document contains information received from the source organization and may not represent a complete record from that organization. Blood Glucose Monitoring Suppl (NanoH2O [place] Lite) w/Device kit TEST BLOOD SUGAR 4 [...] FIVE TIMES DAILY 200 each 023 Active Blood Pressure Monitor kitIndications:Es sential hypertension Check blood pressure twice a week. Dx hypertension 1 kit 023 Active Lancets miscIndications:T ype 2 diabetes mellitus without complication, with long-term current use of insulin ([facility]) Use to test blood sugar 3 times daily 100 each 024 Active Alcohol Swabs 70 % padsIndications:T ype 2 diabetes mellitus without complication, with long-term current use of insulin ([facility]) Use to test blood sugar 3 times daily 100 each Active Blood Glucose Monitoring Suppl (FreeStyle [place] Lite) w/Device kitIndications:Ty pe 2 diabetes mellitus without complication, with long-term current use of insulin ([facility]) Use to test blood sugar 3 times daily 1 kit Active albuterol (Ventolin HFA) 108 (90 Base) MCG/ACT inhalerIndication s:Moderate persistent asthma without complication INHALE 2 PUFFS EVERY 4 to 6 HOURS NEEDED FOR WHEEZING OR SHORTNESS OF BREATH 18 g Active albuterol (2.5 MG/3ML) 0.083% nebulizer solutionIndicatio ns:Moderate persistent asthma without complication INHALE 1 AMPULE USING A NEBULIZER EVERY 4 to 6 HOURS NEEDED FOR WHEEZING OR SHORTNESS OF BREATH 90 mL Active Continuous Glucose Sensor (FreeStyle Lorenza 2 Sensor) miscIndications:T ype 2 diabetes mellitus without complication, with long-term current use of insulin ([facility]) TEST BLOOD SUGAR. CHANGE EVERY 14 DAYS 2 each Active Continuous Glucose Cushion Gum Applicator (FreeStyle Lorenza 2 [place]) deviceIndications :Type 2 diabetes mellitus without complication, with long-term current use of insulin ([facility]) Use in combination with sensor to monitor blood sugar levels. 1 each Active metFORMIN XR (Glucophage-XR) 500 MG 24 hr tablet TAKE 2 TABLETS BY MOUTH ONCE DAILY IN THE MORNING 180 tablet 3 Active rosuvastatin (Crestor) 40 MG tabletIndications :Mixed hyperlipidemia TAKE 1 TABLET BY MOUTH EVERY DAY AT BEDTIME 90 tablet 3 Active fenofibrate (Triglide) 160 MG tabletIndications :Mixed hyperlipidemia TAKE 1 TABLET BY MOUTH EVERY MORNING 90 tablet 3 Active valsartan-hydroCH LOROthiazide (Diovan HCT) 80-12.5 MG tabletIndications :Essential hypertension Take 1 tablet by mouth Once per day. 90 tablet 1 025 2025 Active Mometasone Furoate (Asmanex HFA) 100 MCG/ACT aerosol INHALE 2 PUFFS BY MOUTH TWICE DAILY. RINSE MOUTH AFTER USING. 13 g Active montelukast (Singulair) 10 MG tablet Take [...] mcg by mouth in the morning. Active Acetaminophen Extra Strength 500 MG tabletIndications :Polyarthralgia TAKE 1 TABLET BY MOUTH EVERY 4 TO 6 HOURS NEEDED FOR PAIN. NO MORE THAN 8 TABLETS PER 24 HOURS 100 tablet 5 025 Active TechLite Pen [place] 32G X 4 MM misc USE WITH INSULIN DIRECTED 100 each Active Trulicity 1.5 MG/0.5ML solution auto-injectorIndi cations:Type 2 diabetes mellitus without complication, unspecified whether skilled nursing insulin use ([facility]) INJECT ONE PEN (=1.5MG) SUBCUTANEOUSLY ONCE A WEEK DIRECTED 2 mL 3 Active gabapentin (Neurontin) 100 MG capsuleIndication s:Fibromyalgia TAKE 1 CAPSULE BY MOUTH THREE TIMES DAILY 90 capsule 11 025 Active loratadine (Claritin) 10 MG tabletIndications :Seasonal allergies TAKE 1 TABLET EVERY MORNING NEEDED FOR ALLERGIES 90 tablet 3 025 Active glucose blood (FREESTYLE LITE) test stripIndications: Type 2 diabetes mellitus without complications ([facility]) USE DIRECTED TO TEST BLOOD SUGAR THREE TIMES DAILY 100 strip 11 025 Active glucose blood (FREESTYLE LITE) test strip TEST BLOOD SUGAR FIVE TIMES DAILY 150 each 023 2024 Discontinued loratadine (Claritin) 10 MG tabletIndications :Seasonal allergies TAKE 1 TABLET BY MOUTH EVERY MORNING NEEDED FOR ALLERGIES 90 tablet 3 024 2024 Discontinued FREESTYLE LITE test stripIndications: Type 2 diabetes mellitus without complication, with long-term current use of insulin ([facility]) Use to test blood sugar 3 times daily 100 each 12 024 2024 Active Problems Problem Noted Date Diagnosed Date [...] therapy placed Mixed hyperlipidemia 07/09/2022 Overview (07/09/2022): Continue rosuvastatin 40mg nightly Continue fenofibrate 160mg daily Lipids: Sep 2021: [...] 05/2010, 10 yr repeat. Upcoming appt with [facility] -Mammogram: BIRADS 14 August 2021 -Bone density: ordered April 2023 Assessment & Plan (05/17/2023 2:03 PM EDT): -Pap: last 2011. Pt previously declined repeat pap d/t discomfort with speculum exams. Discussed self insertion of speculum vs blind HPV swab. Pt will consider and may discuss at subsequent appt -Colonoscopy: 05/2010, 10 yr repeat. Upcoming appt with [facility] -Mammogram: BIRADS 14 August 2021 -Bone density: ordered April 2023 Assessment & Plan (01/09/2023 6:01 PM EST): -Pap: last 2011. Pt previously declined repeat pap d/t discomfort with speculum exams. Discussed self insertion of speculum vs blind HPV swab. Pt will consider and may discuss at subsequent appt -Colonoscopy: 05/2010, 10 yr repeat. Upcoming appt with [facility] -Mammogram: BIRADS 14 August 2021 Assessment & Plan (10/03/2022 7:36 AM EDT): -Pap: last 2011. Pt previously declined repeat pap d/t discomfort with speculum exams. Discussed self insertion of speculum vs blind HPV swab. Pt will consider and may discuss at subsequent appt -Colonoscopy: 05/2010, 10 yr repeat. Upcoming appt with [facility] -Mammogram: BIRADS 14 August 2021 Assessment & Plan (07/09/2022 8:05 AM EDT): -Pap: last 2011. Pt previously declined repeat pap d/t discomfort with speculum exams. Discussed self insertion of speculum vs blind HPV swab. Pt will consider and may discuss at subsequent appt -Colonoscopy: 05/2010, 10 yr repeat. Upcoming appt with [facility] -Mammogram: BIRADS 14 August 2021 Diabetic [...] Assessment & Plan (10/03/2022 7:35 AM EDT): Continue valsartan 80mg daily Assessment & Plan (07/09/2022 7:44 AM EDT): Continue valsartan 80mg daily Irritable bowel syndrome 12/20/2014 Assessment & Plan (07/08/2024 8:08 PM EDT): Continue following with [facility] Continues with Linzess 290mcg daily Assessment & Plan (10/03/2022 7:35 AM EDT): Continue following with [facility] Continues with Linzess 145 mcg daily Assessment & Plan (07/09/2022 7:43 AM EDT): Continue following with [facility] Continues with Linzess 145 mcg daily Currently experiencing symptoms of constipation, going 7 days w/o BM. Declines interest in Miralax. Start senna 2 tabs nightly PRN. Also reviewed lifestyle interventions including hydration, movement, and high fiber diet. Type 2 diabetes mellitus 12/20/2014 Overview (07/08/2024): Microalbumin/Cr:Alb: Dec 2022 WNL Eye exam: reports [facility] at [facility], referral to [facility] Eye Care placed 07/09/22 PNA: [id number] Dec [...] nutrition, and medications. Current med regimen (through [facility]) Tresiba 70 units Humalog 22 units [...] insulin she is using. - Referral to [facility] CDTM team - ED precautions reviewed Assessment [...] administering insulin at home Current med regimen: Trulicity 1.5mg subcutaneous weekly [...] elevated. No recent readings. Current med regimen: Trulicity 1.5mg subcutaneous weekly [...] HGBA1C 9.7 (A) 07/06/2022 -BG in office [facility], improved to 400s s/p 10 units lispro -pt reports did not take her long acting insulin last night, reinforced education and admin instructions re: basal vs bolus insulin. -UA neg for ketones, but was positive for nitrites. Mild urinary frequency, but otherwise denies urinary symptoms. tx w/ macrobid. Current med regimen: Metformin 850mg BID Trulicity 1.5mg subcutaneous weekly Lantus 80 units [...] Encounters Date Type Department Care Team Description 10/24/[address] [facility] [address] [place] [address] Luciana Zuniga FNP Type 2 diabetes mellitus without complications ([facility]) 10/17/2024 Travel 10/16/2024 Telephone [facility] [address] [place] [address] Luciana Zuniga FNP Appointment Request 10/16/[address] [facility] [address] [place] [address] Luciana Zuniga FNP Seasonal allergies 10/12/2024 Telephone [facility] [address] [place] [address] Luciana Zuniga FNP No Show 10/11/2024 Telephone [facility] [address] [place] [address] Luciana Zuniga FNP Chart Prep 10/05/2024 Travel 09/20/[address] [facility] [address], [place] [phone] Luciana Zuniga FNP Fibromyalgia 09/12/[address] [facility] [address] [place] [address] Luciana Zuniga FNP Type 2 diabetes mellitus without complication, unspecified whether skilled nursing insulin use ([facility]) 08/20/[address] [facility] MEDICINE [address] [place] [address] Luciana Zuniga FNP 08/09/[address] [facility] [address], [place] [phone] Luciana Zuniga FNP Polyarthralgia 07/30/2024 Telephone [facility] [address], [place] [phone] Luciana Zuniga FNP Medication Question from Last 3 Months Immunizations Immunization Administration [...] with others, in a hotel, in a correction, living outside on the street, on a [...] the past 12 months, has t he [employer], gas, oil or water company threatened to [...] 71 07/06/2024 10:27 AM EDT Temperature 36.3 C (97.3 F) 07/06/2024 10:27 AM EDT Respiratory Rate 20 07/06/2024 10:27 AM EDT [...] 12/17/2024 9:00 AM EST Office Visit [facility] [address] [place] [address] Luciana Zuniga FNP [address] [place], [place] [phone] Health Maintenance Due Date Last Done Comments [...] years 1-dose series) 2021 Mammogram 08/29/2023 08/28/2021 Diabetes: Urine Protein Screening 01/04/2024 01/03/2023, 10/01/2021, 01/21/2021 Lipid Panel 01/04/2024 01/03/2023, 09/14, 01/21/2021, Additional history exists Diabetes: Hemoglobin A1C 10/06/2024 025, 01/06/2024, 10/20/2023, Additional history exists COVID-19 Vaccine ( season) 2024 06/23/2022, 03/10/2021, 07/29/2020, Additional history exists Influenza Vaccine (#1) 2024 , 01/01/2016, 10/20/2012 Tobacco Screening 11/10/2024 11/11/2023 Depression Screening 07/06/2025 07/06/2024, 07/07/19 SDOH Screening 07/06/2025 07/06/2024 Disability Screening 10/05/2025 10/05/2024 DTaP/Tdap/Td Vaccines (4 - Td or Tdap) [...] Procedure Name Priority Date/Time Associated Diagnosis Comments MAGNESIUM Routine 10/27/2024 2:24 PM EDT COMPREHENSIVE METABOLIC PANEL Routine 10/27/2024 2:24 PM EDT PROTHROMBIN TIME-INR Routine 10/27/2024 2:24 PM EDT CBC WITH AUTO DIFFERENTIAL Routine 10/27/2024 2:24 PM EDT POCT GLYCATED HEMOGLOBIN, TOTAL Routine 07/06/2024 10:59 AM EDT Type 2 diabetes mellitus with hyperglycemia, with long-term current use of insulin ([facility]) ALBUMIN, RANDOM URINE W/CREATININE Routine 01/03/2023 11:40 [...] Relevant to Health Maintenance Results * (ABNORMAL) CBC auto differential (10/27/2024 2:24 PM EDT) White Blood Count 9.0 4.8 - 10.8 X10*3/uL [facility] Red Blood Count 4.51 4.20 - 5.50 X10*6/uL [facility] Hemoglobin 13.0 12.0 - 16.0 g/dl [facility] Hematocrit 38.7 37.0 - 47.0 % [facility] Mean Corpuscular Volume 85.8 80.0 - 98.0 fL [facility] Mean Corpuscular Hemoglobin 28.8 27.0 - 33.0 pg [facility] Mean Corpuscular HGB Conc 33.6 31.0 - 35.0 g/dl [facility] Red Cell Distribution Width 12.5 11.0 - 16.0 % [facility] Platelet Count 261 160 - 400 X10*3/uL [facility] Mean Platelet Volume 10.8 9.4 - 12.3 fL [facility] Neutrophils Percent Auto 44.4(L) 45 - 73 % [facility] Imm Gran Pct Auto 0.3 0.0 - 0.4 % [facility] Lymphocytes Percent Auto 46.7(H) 20 - 40 % [facility] Monocytes Percent Auto 5.4 2 - 11 % [facility] Eosinophils Percent Auto 2.9 0 - 4 % [facility] Basophils Percent Auto 0.3 0 - 2 % [facility] NRBC Pct Auto 0.0 0.0 - 0.2 /100WBC [facility] Neutrophils Absolute Auto 4.0 2.0 - 8.3 x10*3/uL [facility] Imm Gran Abs Auto 0.03 0.00 - 0.03 X10*3/uL [facility] Lymphocytes Absolute Auto 4.2 1.2 - 4.9 X10*3/uL [facility] Monocytes Absolute Auto 0.5 0.1 - 1.2 X10*3/uL [facility] Eosinophils Absolute Auto 0.3 0.0 - 0.4 X10*3/uL [facility] Basophils Absolute Auto 0.0 0.0 - 0.2 X10*3/uL [facility] NRBC Abs Auto 0.000 0.0 - 0.012 X10*3/uL [facility] 10/27/2024 2:24 PM EDT 10/27/2024 2:27 PM EDT Generic External Data Provider LAB BLOOD ORDERAB LES Final Result Performing Organization Address [facility] Co de Phone Number [facility] [address] [place] [phone] * Prothrombin Time-INR (10/27/2024 2:24 PM EDT) Prothrombin Time 11.8 10.9 - 12.4 SEC [facility] INTERNATIONAL NORM RATIO 1.0 0.9 - 1.1 [facility] Comment:INTERNATIONAL NORMAL IZED RATIO (INR) REFERENCE RANGES Reference RangeFor patients not on anticoagulant therapy: 0.9 - 1.1INR ranges for oral anticoagulanttherapy:For prevention and treatment of venous thrombosis and pulmonary embolism: 2.0 - 3.0For acute myocardial infarction with aspirin therapy: 2.0 - 3.0For acute myocardial infarction without aspirin therapy: 3.0 - 4.0For patients with mechanical prosthetic heart valves: 2.5 - 3.5 10/27/2024 2:24 PM EDT 10/27/2024 2:27 PM EDT eMoov External Data Provider LAB BLOOD ORDERAB LES Final Result Performing Organization Address [facility] de Phone Number [facility] [address] [place] [phone] * Magnesium (10/27/2024 2:24 PM EDT) Magnesium 1.8 1.6 - 2.6 mg/dL [facility] 10/27/2024 2:24 PM EDT 10/27/2024 2:27 PM EDT us Generic External Data Provider LAB BLOOD ORDERAB LES Final Result [facility] [address] [place] [phone] * (ABNORMAL) Comprehensive Metabolic Panel (10/27/2024 2:24 PM EDT) Sodium 139 135 - 145 mmol/L [facility] Potassium 3.9 3.3 - 5.1 mmol/L [facility] Chloride 105 96 - 108 mmol/L [facility] Carbon Dioxide 24 22 - 29 mmol/L [facility] Anion Gap 14 12 - 20 [facility] Urea Nitrogen (BUN) 15 9 - 16 mg/dL [facility] Creatinine, Serum 0.89 0.5 - 1.4 mg/dL [facility] Creatinine Clr Calc Pharmacy 75.7 [facility] Comment:Provided height and weight: 165.1 cm,100 kg.eGFR (calculated from the MDRD study equation) and eCrCl(calculated from the Cockcroft-Gault equation) are based ondifferent parameters and may not yield comparable results.If eCrCl result is absurd, please check patient'sheight/weight. Estimated Glomerular Filt Rate >60 [facility] Comment:Chronic Kidney Disea se: Estimated GFR < 60 mL/min/[id number] Kidney Disease: Estimated GFR < 15 mL/min/1.73m2 Glucose 159(H) 60 - 115 mg/dL [facility] Calcium 9.6 8.4 - 10.2 mg/dL [facility] Bilirubin, Total 0.3 0.0 - 1.0 mg/dL [facility] Aspartate Amino Transferase 19 5 - 31 U/L [facility] Alanine Aminotransferase 16 0 - 31 U/L [facility] Total Protein 7.4 6.5 - 8.0 g/dL [facility] Albumin Level 4.2 3.5 - 5.0 g/dL [facility] Alkaline Phosphatase 73 39 - 117 U/L [facility] 10/27/2024 2:24 PM EDT 10/27/2024 2:27 PM EDT Generic External Data Provider LAB BLOOD ORDERAB LES Final Result Performing Organization Address [facility]/ZIP Co de Phone Number [facility] [address] [place] [phone] * (ABNORMAL) POCT HGB A1C (07/06/2024 10:59 AM EDT) Hemoglobin A1C 11.5(A) 4.0 - 6.0 % QC Media Lot # [id number] Lot# Expiration Date 122 Blood 07/06/2024 10:5 9 AM EDT Luciana DUQUE POINT OF CARE TEST ENTER/EDIT ORDERABLES Edited Result - Final * Albumin, Random Urine W/Creatinine (01/03/2023 11:40 AM EST) Creatinine, Urine 146.72 mg/dL [facility] Microalbumin Urine 35.0 mg/L [facility] Microalbum Creatinine Ratio Ur 23.8 <30 ug/mg cr [facility] Comment:Albumin/Creatinine R atio Reference Ranges: Normal: < 30 ug/mg creatinine Microalbuminuria: 30 - 300 ug/mg creatinineClinical Albuminuria: > 300 ug/mg creatinine Urine 01/03/2023 11:4 0 AM EST 01/03/2023 2:52 PM EST Luciana DUQUE LAB URINE ORDERABLES Final Res ult Performing Organization Address City/[facility]/ZIP Co de Phone Number [facility] [address] [place] [phone] * Hepatitis C Viral RNA, Quantitative, Real-Time PCR (01/03/2023 11:31 AM EST) Pathologist [facility] Hepatitis C Viral Load <15 NOT DETECTED NOT DETECTED IU/mL [facility] HCV Log PCR <1.18 NOT DETECTED NOT DETECTED Log IU/mL [facility] Comment:This test was perfor med using Real-Time Polymerase ChainReaction.Reportable Range: 15 IU/mL to 100,000,000 IU/mL(1.18 Log IU/mL to 8.00 Log IU/mL).The analytical performance characteristics of thisassay have been determined by [employer].The modifications have not been cleared or approved bythe FDA. This assay has been validated pursuant to theCLIA regulations and is used for clinical purposes.For more information on this test, go to:http://education.Snapverse/faq/EBQ71i2(This link is being provided for informational/educational purposes only.)THIS TEST WAS PERFORMED AT:[facility] [place] [id number] RIVAS MD Blood 01/03/2023 11:3 1 AM EST 01/03/2023 2:37 PM EST Luciana Zuniga [facility] BLOOD ORDERABLES Final Res ult [facility] [address] [place] [phone] * HIV-1/2 Antigen and Antibodies, Fourth Generation, with Reflexes (01/03/2023 11:31 AM EST) Pathologist [facility] HIV AB/AG Nonreactive Nonreactive [facility] Comment:HIV-1 p24 Ag and/or HIV-1/HIV-2 Ab not detected.A test result that is nonreactive does not exclude thepossibility of exposure to or infection with HIV-1 and/orHIV-2. Nonreactive results in this assay for individualswith prior exposure to HIV-1 and/or HIV-2 may be due toantigen and antibody levels that are below the limit ofdetection of this assay.The [facility] HIV Ag/Ab Combo assay result andsupplemental assay results should be interpreted inconjunction with the patient's clinical presentation,history and other laboratory results. If the results areinconsistent with clinical evidence, additional testing issuggested to confirm the result. Blood Venous blood specimen / Unknown 01/03/2023 11:31 AM EST 01/03/2023 2:37 PM EST Luciana Zuniga [facility] BLOOD ORDERABLES Final Res ult Performing Organization Address [facility] Co de Phone Number [facility] [address] [place] [phone] * Lipid Panel, Standard (01/03/2023 11:31 AM EST) Triglycerides 149 <150 mg/dL [facility] Comment:Desirable Triglyceri de: less than 150 mg/dLBorderline High Triglyceride 150-199 mg/dLHigh Triglyceride: 200-499 mg/dLVery High Triglyceride: greater than or equal to 5OO mg/dL Cholesterol 172 <200 mg/dL [facility] Comment:Desirable Cholestero l: less than 200 mg/dLBorderline High Cholesterol: 200-239 mg/dLHigh Cholesterol: greater than 239 mg/dL LDL Cholesterol Calculated 90 <100 mg/dL [facility] Comment:Desirable LDL: less than 100 mg/dLNear Optimal/Above Optimal LDL: 110- 129 mg/dLBorderline High LDL: 130-159 mg/dLHigh LDL: 160-189 mg/dLVery High LDL: greater than or equal to 190 mg/dL HDL Cholesterol 53 >40 mg/dL [facility] Comment:Desirable HDL: great er than 40 mg/dL Note: This HDL assay may give artificially low results in patients with liver disease. Blood Venous blood specimen / Unknown 01/03/2023 11:31 AM EST 01/03/2023 2:37 PM EST us Lucianatyson Zuniga [facility] BLOOD ORDERABLES Final Res ult Performing Organization Address [facility] Co de Phone Number [facility] [address] [place] [address] [phone] * Mammography Report 1 (08/28/2021 1:30 PM EDT) Anatomical Region Laterality Modality Breast Bilateral Mammography 08/28/2021 1:30 PM EDT Narrative 08/31/2021 4:01 PM EDT Refer to the Notes tab for result details [facility] Procedure: Mammography Report 1 Procedure Note Provider, MD Diallo - 05/09/2022 Refer to the Notes tab for result details [facility] Procedure: Mammography Report 1 Mela Jordan RESERVATIONS MANAGER IMG BI PROCEDURES Final Result from Last 3 Months or Most Recently Relevant to Health Maintenance Insurance [address] [place] [id number] Care Teams Chief Meteorologist Relationship Specialty Start Date End Date Luciana Zuniga FNP [address] [place] [address] PCP - General Family Medicine 10/12/21
== END 2024-10-27 19:18 | disposition home or self-care (01) ==
PROVIDERS: Physician Assistant Medical; Emergency Provider Emergency Medicine Emergency Medical Services; PCP Registered Nurse
DX: R19.7 Diarrhea, unspecified (principal); K14.8 Other diseases of tongue; I10 Essential (primary) hypertension; E11.9 Type 2 diabetes mellitus without complications; J45.909 Unspecified asthma, uncomplicated; Z79.899 Other long term (current) drug therapy
CPT/HCPCS: 36415; 80053; 83735; 85025; 85610; 99283; 99284

== ENCOUNTER 2024-11-30 10:52 | Outpatient (AMB) | payer MEDICAID, SELFPAY ==
--- NOTE | 2024-11-30 10:55 | MHC.OFFVIS ---
Vital Signs 11/30/24 11:15 Height 5 ft 5 in Weight 232 lb 5.875 oz BMI 38.7 BP 156/68 H Blood Pressure Location Rt brachial Position Sitting Pulse 80 Intake Visit Reasons: GERD + Hx of HP. R/S from 09/28. Intake Note: Est pt for mgmt of GERD. Most recent HP 07-11-2024 (-). Waiting for colo/egd scheduling. CC: patient here to follow up GERD/ Constipation. Reports improvement since last visit. Taking linzess, senna, famotidine. Patient c/o: abdomen inflammation. Despite drinking apple tea, eating healthier. [employer] Required: Yes Accompanied by: daughter Danyelle, friend Jessica Allergies Penicillins (PENICILLINS) Allergy (Unknown, Verified 11/30/24 11:21) UNKNOWN HIGH BLOOD PRESSURE MED Allergy (Unknown, Uncoded 11/30/24 11:21) ASTHMA HPI HPI GERD + Hx of HP. R/S from 09/28.: Details: LAST VISIT: IBS (irritable bowel syndrome) Abdominal bloating Chronic idiopathic constipation GERD (gastroesophageal reflux disease) Uncontrolled diabetes mellitus with hyperglycemia LLQ abdominal pain Helicobacter pylori (H. pylori) Plan Patient will continue taking Linzess daily. Increase fluid intake and activity to promote better bowel motility. Patient will hold Dexilant and will return in 2 weeks for retesting for H pylori. Patient will take famotidine in the meantime to help with reflux. Stop famotidine 24 hours before, NPO 1 hour before testing. Patient will return in the office in 3 months, sooner on as needed basis. She is agreeable to this plan and verbalizes understanding of instructions. She was given the opportunity to ask questions and all questions answered. ? Thank you for allowing me to participate in her care Orders H Pylori Breath Test Today K21.9 New famotidine (Pepcid) 20 mg PO BID 30 tabs 0RF K29.70 TODAY'S VISIT: Patient is here today for follow-up. Patient had negative H pylori testing. Currently she is taking Dexilant and is doing well on it. Her symptoms of acid reflux, dyspepsia, dysphagia or odynophagia are no longer present. Patient is trying to eat better. She is choosing food that is healthier. Trying to drink shakes to substitute some meals. Patient had Cologuard that came back negative would like to avoid going for colonoscopy at this time. Patient reports that she is moving her bowels better now. Patient is taking Linzess and is able to have a bowel movement daily. Patient takes Linzess every morning. Denies melena, hematochezia, unintentional weight loss or ribbon like stools. Overall patient reports that she has been feeling better. [facility] Medical History Uncontrolled diabetes mellitus with hyperglycemia IBS (irritable bowel syndrome) H. pylori infection High cholesterol Hypertension Diabetes Asthma Surgical History History of cholecystectomy History of tubal ligation History of esophagogastroduodenoscopy (EGD) (~05/2010) Hx of colonoscopy (~05/2010) Family History Father Heart disease Mother Cancer Diabetes HTN (hypertension) Sister Diabetes Brother Heart disease Maternal Grandmother Cancer Paternal Grandmother Cancer Social History Alcohol intake: current Alcohol intake frequency: does not drink Review of Systems Const Denies weight gain and Denies weight loss ENT Reports no additional complaints, Denies dysphagia and Denies odynophagia Card Reports no additional complaints Resp Reports no additional complaints GI Reports abdominal pain (Occasional cramping), Denies belching, Denies melena, Reports bloating, Denies change in bowel habits, Denies dysphagia, Denies excessive flatus, Denies dyspepsia, Reports heartburn (Improved), Denies diarrhea, Denies loose stools, Denies nausea, Denies odynophagia and Denies vomiting Reports no additional complaints Musc Reports no additional complaints Neuro Reports no additional complaints Psych Reports no additional complaints Endo Reports no additional complaints Physical Exam Vital Signs: Last Vital Signs Pulse 80 11/30/24 11:15 BP 156/68 H 11/30/24 11:15 BMI result Body Mass Index 38.7 Const General: healthy appearing and no acute distress Nutritional Appearance: obese Orientation/consciousness: patient oriented x3 Resp Effort & Inspection: normal respiratory effort, able to speak in complete sentences, no tracheal deviation and symmetric chest movement Auscultation: clear to auscultation bilaterally Cardio Rate: regular rate GI Inspection: Yes normal to inspection, No distended and Yes obesity Palpation (GI): Soft to palpation, not firm, nontender and No hepatosplenomegaly present Auscultation: normal bowel sounds General: Yes no CVA tenderness Back/Spine/Pelvis Back: no CVA tenderness Skin General skin exam: elasticity normal, turgor normal and dry skin Neuro General: patient oriented x3 Psych Appearance: grossly normal Mental Status: mental status grossly normal Assessment & Plan Assessment & Plan (1) GERD (gastroesophageal reflux disease): Code(s): K21.9 - Gastro-esophageal reflux disease without esophagitis Category: Medical Qualifiers: Esophagitis presence: esophagitis presence not specified Qualified Code(s): K21.9 - Gastro-esophageal reflux disease without esophagitis (2) Chronic idiopathic constipation: Code(s): K59.04 - Chronic idiopathic constipation Category: Medical (3) IBS (irritable bowel syndrome): Code(s): K58.9 - Irritable bowel syndrome, unspecified Category: Medical Qualifiers: Irritable bowel syndrome type: with constipation Qualified Code(s): K58.1 - Irritable bowel syndrome with constipation (4) Abdominal bloating: Code(s): R14.0 - Abdominal distension (gaseous) Category: Medical Plan Patient will continue current therapy with PPI. Avoid dietary triggers and late night snacking. Staying upright for minimum 3 hours after meals discussed with patient. Patient can continue taking Linzess. Increase fluid intake and activity to promote better bowel motility. Discussed with patient healthier choices and weight loss. May use simethicone as needed. Follow-up in the office in 10 weeks, sooner on as needed basis. She is agreeable to this plan and verbalizes understanding of instructions. She was given the opportunity to ask questions and all questions answered. Thank you for allowing me to participate in her care Coding Level of Care Code Est Pt Level 4 (70397) Complex EM visit Add On G2211 Diagnoses Gastroesophageal reflux disease, unspecified whether esophagitis present K21.9 Esophagitis presence: esophagitis presence not specified Chronic idiopathic constipation K59.04 Irritable bowel syndrome with constipation K58.1 Irritable bowel syndrome type: with constipation Abdominal bloating R14.0 Time Spent (min) 35 Comment 25 minutes spent with patient and additional 10 minutes spent reviewing her records
[2024-11-30 11:15] VITALS: BP 156/68; PULSE 80; BMI 38.7
== END 2024-11-30 11:56 | disposition home or self-care (01) ==
LOC: HO.HGI 10:52
PROVIDERS: PCP Registered Nurse; Visit Provider Nurse Practitioner Family
DX: K21.9 Gastro-esophageal reflux disease without esophagitis (principal); K59.04 Chronic idiopathic constipation; K58.1 Irritable bowel syndrome with constipation; R14.0 Abdominal distension (gaseous)
CPT/HCPCS: 99214

== ENCOUNTER → 2024-11-30 10:52 | Outpatient (BNVA) | payer MEDICAID, SELFPAY | PROVIDERS: PCP Registered Nurse; Visit Provider Nurse Practitioner Family | DX: K21.9 Gastro-esophageal reflux disease without esophagitis (principal); K59.04 Chronic idiopathic constipation; K58.1 Irritable bowel syndrome with constipation; R14.0 Abdominal distension (gaseous) | CPT/HCPCS: 99212 ==